=== PATIENT | female | born 1940 | race Caucasian/White ===

== ENCOUNTER 2025-02-26 02:20 | Inpatient (IN) | payer MEDICARE, SELFPAY ==
[2025-02-26] VITALS (16 sets, daily range): BP systolic 106–140; BP diastolic 71–96; BMI 29.8
--- NOTE | 2025-02-26 00:31 | ED.GENMED ---
History of Present Illness
General
Chief Complaint: Chest Pain
Source: patient and ambulance crew
Exam Limitations: none
Time Seen by Provider: 02/26/25 00:23
Nursing documentation reviewed up to this point in time: agreed with
History of Present Illness
History of Present Illness:
85-year-old female presents to the emergency department with substernal chest pain that began approximately an hour and a half prior to arrival. She called 911. Upon arrival paramedics discovered that she was having a STEMI. A STEMI alert was
called immediately. There was a prolonged transport time of greater than 15 minutes. Upon arrival to the emergency department, patient was stabilized and Dr. Arciniega, duct layer helper met patient at bedside. The entire [facility] [facility] [employer] [facility] team was
present as they were in another case. Patient was given Brilinta, aspirin, and transported up to the [facility].
Past History
Past History
ED Past Medical History: Arrthythmia, GERD, HTN, Hypercholesterolemia and NIDDM
ED Past Surgical History: Orthopedic and Urological
Social History
Tobacco: Former smoker
Alcohol: None
Drug: None
Personal:
Living: with family
Employment: Retired
Family History
Family History: Other (Noncontributory)
Phy Exam
General Physical Exam
General Presentation: moderate distress
General age: appears stated age
General Skin: warm and dry
General Habitus: elderly
General Mental: alert
General Hydration: appears well hydrated
ENT Exam
ENT Exam: EOMI, pharynx normal, neck supple and normocephalic
Eye Exam
Eye Exam: PERRL, cornea clear and conjunctiva normal
Cardiovascular Exam
Cardiovascular Exam: regular rate/rhythm, no edema, no murmur and normal peripheral pulses
Pulmonary Exam
Pulmonary Exam: lungs clear, no respiratory distress, no rales, no crackles, no rhonchi, no stridor, no wheezing and no cough
Gastrointestinal Exam
Gastrointestinal Exam: normal bowel sounds, non tender, soft, no organomegaly, no pulsatile mass and non distended
Neurological Exam
Neurological Exam: alert, oriented x3, no motor deficits and speech normal
Musculoskeletal Exam
Musculoskeletal Exam: full ROM and no edema
Skin Exam
Skin Exam: normal color, warm/dry, no rash and no petechia
Psychiatric Exam
Psychiatric Exam: normal mood/affect
Scores
Heart Score for Chest Pain Patients
STEMI patient?: Yes
Course
Orders/Labs/Results
Orders:
Orders
02/26/25 00:35
Electrocardiogram (*1) Urgent
Reason for Study: Other
Other Reason for Exam: Respiratory Distress
Cardiac Monitoring- Treatment ONCE
EKG- Treatment ONCE
IV Insert/Care/Rem.- Treatment PRN
O2 Therapy [RESP] Urgent
Titrate/Wean O2 to maintain O2 sat greater than (%): 93
Special Instructions: TO MAINTAIN CONTINUOUS O2 SATS >/= 93%
Pulse Ox/cont/shift [RESP] Urgent
Quantity: 1
Special Instructions: continuous pulse ox
02/26/25 00:37
Complete Blood Count/With Diff Urgent
Comprehensive Metabolic Panel Urgent
Lactic Acid Q4H
Comment: WITH 1ST SET OF BLOOD CULTURES,CANCEL 2ND LACTIC ACID IF FIRST <2
NT-proBNP Urgent
Prothrombin Time Urgent
Troponin I Urgent
02/26/25 01:22
Aspirin Chewable [Low Strength Aspirin] 324 mg .ROUTE .STK-MED ONE
Ticagrelor [Brilinta] 180 mg .ROUTE .STK-MED ONE
02/26/25 01:23
Heparin 5,000 units .ROUTE .STK-MED ONE
02/26/25 02:09
Admit Patient As Directed
Co-Sign Provider:
Level of Care: Inpatient admission
Assign to:: IVU
Physician / Group: AZALIA/Arciniega
Diagnosis: STEMI
Reason for Hospitalization: STEMI
Expected length of stay greater than two midnights?: Yes
ELOS- Estimated Length of Stay in days: 3
I certify the patient meets the requirements for IP care: Yes
Electrocardiogram (*1) Urgent
Reason for Study: Other
Other Reason for Exam: s/p intervention
Code Status As Directed
Resuscitation Status: Full Code
CARDIAC REHAB CONSULT Routine
Co-Sign Provider:
Cardiac Rehab & Exercise Evaluation Referral
Type of Cardiac Rehab Referral: Outpatient
Diagnosis: STEMI
Date of Diagnosis/Surgery: 02/26/25
Referring Provider: Kem Betts
[facility]ensive [facility]iac Rehab Exercise Prescription
The above named person is capable of participating in an intensive cardiac rehab exercise therapy program
under the guidance of the [facility] cardiac rehab staff, outpatient registered dieticians and
supervision of a physician.
ICR Program Objectives:
Provide supervised exercise, cooking classes, nutritional counseling and healthy mind-set education to
improve the function/symptom free work capacity to an optimal level as well as control risk factors to
prevent the progression of heart disease. During the supervised exercise therapy session some or all of
the following may be included in the cardiac rehab session: ECG telemetry, BP, heart rate, rate of
perceived exertion, symptoms/tolerance, cholesterol testing and education. Exercise modalities may
include: treadmill, upright or recumbent bike, spin bike, rowing machine, elliptical, recumbent
elliptical, arm-bike machine, recumbent stepper and free weights.
Intensity:
All CR staff will use ACSM guidelines: Most patients will exercise in the following range: Heart Rate
[place] range of 40% to 80% & Oxygen Uptake reserve range 40-80% (VO2R). Peak heart rate and VO2 are
derived from the cardiac rehab submaximal graded exercise test at RPE of 13/14 out of 20. Initial
intensity range: RPE 11 to 14/20 and may expand to 11 to 16/20.
Duration & Frequency:
If appropriate the patient will be progressed up to 40 minutes of exercise therapy. Patients will be
instructed to come three times a week in cardiac rehab and at a home/other gym to achieve optimal
physical activity/exercies i.e. 4000-10,000 steps per day.
Education:
The patient will receive one-on-one education during their orientation, initial exercise evaluation, ITP
reassessments and discharge session. Each exercise session will also include an education class (30-40
minutes).
Acetaminophen [Tylenol] 650 mg PO Q4HPRN PRN
Metoprolol [Lopressor] 25 mg PO NOW STA
Nitroglycerin Sublingual [Nitrostat (Sublingual)] 0.4 mg SL [id number] PRN
Activity As Directed
Activity Level: Out of Bed- Chair
Comment: bed/chair rest for 2 hours then out of bed ad edgardo
[employer] Procedure As Directed
Cardiac Cath Procedure: percutaneous coronary intervention
Intake/ Output As Directed
Frequency: Per unit guidelines
Notify MD As Directed
Notify physician if: immediately for chest pain or bleeding from access site(s)
Radial Artery Hemostasis Method As Directed
Instructions:: 3 mL out at 3 hour posts placement of band
3 mL out at 3 1/2 hours post placement of band
3 mL out at 4 hours post placement of band
Off at 4 1/2 hours post placement of band
If any oozing or hemotoma occurs:: re-inflate band and call provider
Site Checks As Directed
Check access site for bleeding/hematoma: Yes
Comment: on arrival, Q15min x4, Q30min x2, Q1 hr x2, Q2 hr x2, Q4 hr or per
protocol
Vascular Checks As Directed
Location: distal to access site - pulse check
Frequency: Other
Comment: on arrival, Q15min x4, Q30min x2, Q1 hr x2, Q2 hr x2, Q4 hr or per protocol
Vital Signs As Directed
Frequency: Other
Additional Instructions:: on arrival, Q15min x4, Q30min x2, Q1 hr x2, Q2 hr x2, then Q4 hr or per unit
protocol
PRN Pain Medication Management As Directed
May give lesser potent ordered pain med per pt: Yes
preference::
Protocol:: Medication orders for pain may be administered in a
manner that supports deferring to patient preference
when the pt is:
- Requesting an ordered lesser potent pain medication.
Least to most potent pain medications are defined
as: acetaminophen < NSAID < tramadol < opioids
(morphine, oxycodone, hydromorphone).
- Requesting a lesser dose of the same medication IF
ORDERED.
- Requesting a less intrusive route of administration
if both routes are prescribed by the provider (PO <
IV).
DX Deep Vein Thrombosis Video Routine
02/26/25 02:42
Glycohemoglobin (HgbA1c) Routine
Troponin I Q6H
02/26/25 03:00
Atorvastatin [Lipitor] 40 mg PO QPM
02/26/25 05:18
Basic Metabolic Panel IN AM
Cardiovascular Evaluation IN AM
Complete Blood Count/With Diff IN AM
Lactic Acid Q4H
Comment: WITH 1ST SET OF BLOOD CULTURES,CANCEL 2ND LACTIC ACID IF FIRST <2
02/26/25 06:00
Echo 2D MMode Color/Doppler IN AM
Reason for Study: STEMI
Electrocardiogram (*1) IN AM
Reason for Study: Other
Other Reason for Exam: s/p intervention
02/26/25 08:00
Aspirin Chewable [Low Strength Aspirin] 81 mg PO DAILY
Heparin 5,000 units SC Q12
Metoprolol Xl [Toprol Xl] 50 mg PO BID
Ticagrelor [Brilinta] 90 mg PO BID
02/26/25 08:15
Troponin I Q6H
02/26/25 14:15
Troponin I Q6H
02/27/25 06:00
Electrocardiogram (*1) IN AM
Reason for Study: Other
Other Reason for Exam: s/p intervention
02/28/25 06:00
Electrocardiogram (*1) IN AM
Reason for Study: Other
Other Reason for Exam: s/p intervention
Abnormal Lab Results
02/26/25
00:37
WBC 18.1 H 10^3/uL
(4.8-10.8)
MCH 31.5 H pg
(27.0-31.0)
MPV 11.3 H fL
(7.4-10.4)
Abs Immat Gran (auto) 0.1 H 10^3/uL
(0-0.05)
Absolute Neuts (auto) 12.7 H 10^3/uL
(1.4-6.5)
Absolute Lymphs (auto) 4.1 H 10^3/uL
(1.2-3.4)
Absolute Monos (auto) 0.9 H 10^3/uL
(0.1-0.6)
PT 17.5 H Sec
(11.4-14.6)
Carbon Dioxide 19 L mmol/L
(22-30)
BUN 31 H mg/dl
(7-17)
Glucose 365 H mg/dl
(70-99)
Lactic Acid 3.4 H mmol/L
(0.7-2.0)
AST 79 H U/L
(14-36)
Troponin I 2.260 H* ng/ml
02/26/25 00:37
02/26/25 00:37
Vital Signs
Initial and Last Documented VS:
Initial Vital Signs
Temp Pulse Resp BP Pulse Ox
98.0 F 146 22 126/95 97
02/26/25 00:15 02/26/25 00:15 02/26/25 00:15 02/26/25 00:15 02/26/25 00:15
Last Documented Vital Signs
Temp Pulse Resp BP Pulse Ox
97.5 F 122 16 113/95 99
02/26/25 02:33 02/26/25 03:03 02/26/25 02:33 02/26/25 03:03 02/26/25 02:33
*EKG
Interpreted by ED Provider?: Yes
EKG Intrepretation Date: 02/26/25
Rate: normal
Rhythm: sinus
[place]: normal axis
Interval: normal interval
QRS Pattern: normal QRS
Ischemia: ST elevation
*Critical Care Note
Total Time (30-74mins, 75-104mins- exclusive of procedures): 35 (Critical care statement: A total of 35 minutes of critical care time was provided for this patient. This time is separate from time utilized to perform the aforementioned documented
procedures. Aggregate critical care time includes only time during which I was engaged in work directl)
Update Note
Update Note:
12:30 AM�granddauter was contacted
ED Attending Note
-
Portions of this chart may have been created with voice recognition software.� Occasional wrong word or��sound alike� substitutions may have occurred due to the inherent limitations of voice recognition software.
Discharge Plan
Departure
Patient Disposition: PAIRER SUBSTANDARD
Date of Disposition: 02/26/25
Time of Disposition: 00:33
Admit to: research laboratory manager
Presentation/result/management discussed w/ accepting /: Suze
Condition: Good
Discharge Problem:
ST elevation (STEMI) myocardial infarction
Interventions
Interventions:
*ED COVID-19 Vaccine History Last Done: 02/26/25 00:30
*Nursing Disposition Last Done: 02/26/25 00:30
ED- Cardiac Assessment Last Done: 02/26/25 00:20
Discharge Date and Time
Discharge Date/Time: 02/26/25 00:30
[2025-02-26 00:47] LABS: % Basophils 0.6 % (0-2); % Eosinophils 0.9 % (0-6); % Immature Granulocytes 0.4 % (0-0.5); % Lymphocytes 22.8 % (20.5-51.1); % Monocytes 4.9 % (1.7-9.3); % Neutrophils 70.4 % (42.2-75.2); Absolute Basophils 0.1 10^3/uL (0-0.2); Absolute Eosinophils 0.2 10^3/uL (0-0.7); Absolute Immature Granulocytes 0.1 10^3/uL (0-0.05); Absolute Lymphocytes 4.1 10^3/uL (1.2-3.4); Absolute Monocytes 0.9 10^3/uL (0.1-0.6); Absolute Neutrophils 12.7 10^3/uL (1.4-6.5); Hematocrit 38.4 % (37.0-47.0); Hemoglobin 13.7 g/dL (12.0-16.0); Mean Corp Hgb Conc. 35.7 g/dL (33.0-37.0); Mean Corpuscular Hgb 31.5 pg (27.0-31.0); Mean Corpuscular Volume 88.3 fL (81.0-99.0); Mean Platelet Volume 11.3 fL (7.4-10.4); Nucleated Red Blood Cells % 0 %; Platelet Count 241 10^3/uL (130-400); Red Blood Cell Count 4.35 10^6/uL (4.20-5.40); Red Cell Dist. Width 12.4 % (11.5-14.5); White Blood Cell Count 18.1 10^3/uL (4.8-10.8)
[2025-02-26 00:59] LABS: ALT (SGPT) 28 U/L (0-35); AST (SGOT) 79 U/L (14-36); Albumin 4.6 g/dl (3.5-5.0); Alkaline Phosphatase 74 U/L (38-126); Blood Urea Nitrogen 31 mg/dl (7-17); Calcium 10.2 mg/dl (8.4-10.2); Carbon Dioxide 19 mmol/L (22-30); Chloride 100 mmol/L (98-107); Glucose 365 mg/dl (70-99); Potassium 4.3 mmol/L (3.5-5.1); Sodium 139 mmol/L (135-145); Total Bilirubin 1.1 mg/dl (0.2-1.3); eGFR > 60.00
[2025-02-26 01:02] LABS: INR 1.41; PT 17.5 Sec (11.4-14.6)
[2025-02-26 01:07] LABS: Lactic Acid 3.4 mmol/L (0.7-2.0)
[2025-02-26 01:17] LABS: NT-proBNP 235 pg/ml
--- NOTE | 2025-02-26 02:14 | HPS.HSE ---
Family Physician
-
Family Physician: NOT KNOW UNKNOWN - PT DOES
Chief Complaint
-
Chest pain
History of Present Illness
Patient is a 85-year-old female with past medical history of hypertension, hyperlipidemia, type 2 diabetes mellitus, [id number], former smoker coronary artery disease with a prior silent AK per patient, persistent atrial fibrillation on
chronic Eliquis and beta-danny, prior TIA, some ambulatory dysfunction using a cane with prior falls however none recently who presents from home brought in by EMS after having sudden onset substernal chest discomfort around 930 this evening while
she was at rest watching TV associated with shortness of breath and generalized fatigue. She went to bed on without any difficulties and had no other complaints throughout the day yesterday. She ate her dinner without any abnormalities.
She was called in as a prehospital ST elevation AK with EKG showing significant anterolateral ST elevations concerning for a anterolateral ST elevation AK for which heart catheterization lab was activated. In the emergency room she continued to
have 6-8 out of 10 chest discomfort and she received 325 mg of aspirin, 180 mg of Brilinta, 4000 units of unfractionated heparin. Last dose of Eliquis was on evening of February 25, 2025. She denies any allergies to contrast dye. After detailed
informed consent was obtained she was emergently brought up to the heart catheterization lab. She definitely saw her hitting coach earlier this week on Thursday with no medication changes and she was otherwise doing well so no other changes were made.
No recent stress test per patient.
Medical History
Past Medical History
Past Medical History: Reports CAD, CVA, HTN, Hypercholesterolemia and IDDM
Past Surgical History: Reports None
Social History
Tobacco: Former Smoker
Alcohol: Occasional
Drug: None
Personal: Single
Living: Alone
Employment: Retired
Family History
Family History: Not pertinent
Allergies / Home Medications
Allergies reflects when Allergies were last updated in [employer].
Home Medications with original date entered in [employer]
Allergy/Medication List:
Multiple allergies reviewed and updated in the system in the emergency room specifically she denied any allergies to contrast dye
Medications include
Eliquis 5 mg twice daily
Glipizide 5 mg daily
Losartan 25 mg daily
Metformin 1000 mg twice daily
Lopressor 50 mg twice daily
Simvastatin 40 mg once daily
Calcium supplementation
Chlorthalidone 25 mg daily on Thursday, Thursday and Fridays
Multivitamin
Review of Systems
-
A 12 point ROS was completed and negative except as noted: Yes
Physical Exam
Vital Signs
Vital Signs
Temp Pulse Resp BP Pulse Ox
98.0 F 146 33 126/95 97
02/26/25 00:15 02/26/25 00:15 02/26/25 00:30 02/26/25 00:19 02/26/25 00:19
Physical Exam
General: Well Developed, Well Nourished, Appears in Distress, Pain, Appears Chronically Ill and Obese
HEENT: Moist mucous membranes
Respiratory: Wheezes and Non Labored Respirations
Cardiac: S1/S2, Irregular Rhythm, Tachycardia and JVD; No Peripheral Edema
GI: Soft, Non Tender, Non Distended and Normal Bowel Sounds
Neuro: Awake and AO x 3
Psych: Calm
Laboratory Results
-
Laboratory Results
PT 17.5 Sec (11.4-14.6) H 02/26/25 00:37
INR 1.41 02/26/25 00:37
Lactic Acid 3.4 mmol/L (0.7-2.0) H 02/26/25 00:37
Total Bilirubin 1.1 mg/dl (0.2-1.3) 02/26/25 00:37
AST 79 U/L (14-36) H 02/26/25 00:37
ALT 28 U/L (0-35) 02/26/25 00:37
Alkaline Phosphatase 74 U/L (38-126) 02/26/25 00:37
Troponin I 2.260 ng/ml H* 02/26/25 00:37
Data Reviewed
-
Diagnostic Radiology: Image Personally Visualized and interpreted
Medical Tests (Nuc Med, Echo, EKG etc): Image Personally Visualized and interpreted
Lab Data: Labs Reviewed by me
Old Records: Reviewed
Impression/Plan
-
IMPRESSION: Patient is a 85-year-old female with past medical history of hypertension, hyperlipidemia, type 2 diabetes mellitus, [id number], former smoker coronary artery disease with a prior silent AK per patient, persistent atrial
fibrillation on chronic Eliquis and beta-danny, prior TIA, some ambulatory dysfunction using a cane with prior falls however none recently who presents from home brought in by EMS after having sudden onset substernal chest discomfort around 930
this evening while she was at rest watching TV associated with shortness of breath and generalized fatigue. She went to bed on without any difficulties and had no other complaints throughout the day yesterday. She ate her dinner without
any abnormalities. She was called in as a prehospital ST elevation AK with EKG showing significant anterolateral ST elevations concerning for a anterolateral ST elevation AK for which heart catheterization lab was activated. In the emergency room
she continued to have 6-8 out of 10 chest discomfort and she received 325 mg of aspirin, 180 mg of Brilinta, 4000 units of unfractionated heparin. Last dose of Eliquis was on evening of February 25, 2025. She denies any allergies to contrast dye.
After detailed informed consent was obtained she was emergently brought up to the heart catheterization lab. She definitely saw her hitting coach earlier this week on Thursday with no medication changes and she was otherwise doing well so no other
changes were made. No recent stress test per patient.
Outpatient Supervisor Pipeline Maintenance: Dr. Kem Zavala
Impression:
Anterolateral ST elevation AK with 100% thrombotic occlusion of the mid LAD with KAVITHA 0 flow status post one 3.0 x 18 mm Medtronic Dangelo drug-eluting stent, postdilated using IVUS guidance with a 3.25 x 15 millimeter NC balloon at 18 juanita with an
excellent angiographic result complicated by no reflow into mid to distal LAD requiring multiple rounds of various vasodilators
Hypertension
Hyperlipidemia
Type 2 diabetes mellitus, [id number]
Coronary artery disease, questionable prior AK per patient
Persistent atrial fibrillation with prior TIA
Chronic anticoagulation with Eliquis
Ambulatory dysfunction, using a cane
Prior falls
Former smoker
Lives alone independently
Recommendations
1. Uninterrupted dual antiplatelet therapy with daily baby aspirin and Brilinta 90 mg twice daily for now, along with high intensity statin and beta-danny as tolerated.
2. Full echocardiogram to assess biventricular function and rule out any significant valvular abnormalities.
3. Likely staged PCI to RCA, as early as Thursday depending on hemodynamic stability, recovery and renal function.
4. Aggressive management of cardiovascular risk factors.
5. Medicine consult to help manage chronic medical issues including diabetes.
6. Post all interventions this admission, when she is ready to have her Eliquis resumed with plan to switch to Plavix given she is older patient to minimize risk for bleeding by loading 600 mg of Plavix with plan to continue 1 week of triple
therapy with daily baby aspirin, Plavix 75 mg daily along with Eliquis then to discontinue aspirin and continue Plavix and Eliquis.
7. Eventual referral for outpatient cardiac rehab
Chelle Arciniega MD, FACC, [facility]
--- NOTE | 2025-02-26 02:17 | CON.HOSP ---
Family Physician
-
Family Physician: NOT KNOW UNKNOWN - PT DOES
Chief Complaint
-
STEMI
History of Present Illness
This is an 85-year-old female with past medical history significant for type 2 diabetes, hypertension, proximal atrial fibrillation on anticoagulation, GERD, mitral valve prolapse and history of hemorrhoids who presents to the emergency department
with substernal chest pain beginning approximately an hour and a half prior to arrival.
EMS arrived to find patient having a ST elevation NC cardiac monitoring. Unfortunately there was prolonged transportation greater than 50 minutes.
On arrival in the emergency department patient was stabilized and top frame maker was brought to the bedside. Store Sales Manager was activated and patient was transferred to the Store Sales Manager. She was given Brilinta aspirin en route to the Store Sales Manager.
I met the patient post cath, please see description of procedure by interventional cardiology note.
Initial vitals in the emergency department showed a blood pressure of 130/90 with a pulse of 146. She had normal temperature. ECG showed sinus tachycardia with ST elevations in the anterior leads. CBC shows a white count of 18 but otherwise
unremarkable stop electrolytes BUN/creatinine were all stable. Glucose was elevated at 380. Patient had elevated lactic acid of 3.4.
Medical History
Past Medical History
Past Medical History: Reports Arrhythmia (Proximal atrial fibrillation), GERD, HTN and NIDDM
Additional Past Medical History:
Irritable bowel disease
Past Surgical History: Reports Gynocological (Bladder sling, exploratory laparoscopy/unilateral salpingectomy) and Orthopedic (Right knee replacement, left knee replacement, right shoulder replacement.)
Social History
Tobacco: Non-smoker
Alcohol: Occasional
Drug: None
Living: With Family
Family History
Family History: Reviewed & Not Pertinent
Allergies / Home Medications
Allergies reflects when Allergies were last updated in [employer].
Home Medications with original date entered in [employer]
Allergy/Medication List:
Allergies
Allergy/AdvReac Type Severity Reaction Status Date / Time
amoxicillin Allergy NAUSEA Verified 02/27/22 11:02
FROM
AUGMENTIN
amoxicillin trihydrate Allergy Nausea / Verified 02/27/22 11:02
[From Augmentin] Vomiting
bupropion HCl Allergy 'made me Verified 02/27/22 11:02
[From Wellbutrin] ANGRY'
cefuroxime axetil Allergy Unknown Verified 02/27/22 11:02
[From Ceftin]
ciprofloxacin HCl Allergy Unknown Verified 02/27/22 11:02
[From Cipro]
codeine Allergy UPSET Verified 02/27/22 11:02
STOMACH
levofloxacin [From Levaquin] Allergy Unknown Verified 02/27/22 11:02
NSAIDS (Non-Steroidal Allergy avoids due Verified 02/27/22 11:02
Anti-Inflamma to ulcers
potassium clavulanate Allergy Nausea / Verified 02/27/22 11:02
[From Augmentin] Vomiting
molds and trees Allergy Head Uncoded 02/27/22 11:02
congestion
and
sneezing
poison pb Allergy Rash, Uncoded 02/27/22 11:02
itching
wheat Allergy Patient Uncoded 02/27/22 11:02
Denies
Home Medications
metFORMIN HCl ER 500 MG 2 tablets Orally Twice a day for 90 days Active
Biotin Active
Escitalopram Oxalate 10 MG 1 tablet Orally Once a day for 90 days Active
Estrace 0.1 MG/GM 1 gram Vaginal Once a day for 14 days then twice weekly for 30 day(s) stopped March, Unknown
Simvastatin 40 MG 1 tablet in the evening Orally Once a day for 90 days Active
Januvia 100 MG 1 tablet Orally Once a day for 90 days stopped Unknown
glipiZIDE ER 5 MG 1 tablet with food Orally Once a day for 90 days Active
Losartan Potassium 25 MG TAKE 1 TABLET BY MOUTH ONCE DAILY for 90 Active
Eliquis 5 MG 1 tablet Orally Twice a day for 90 days Active
Accu-Chek Guide - as directed In Vitro Once a Day for 90 days icd10 e11.69 Nov, Unknown
Metoprolol Tartrate 50 MG 1 tablet with food Orally Twice a day for 7 days Early fill needed, pt will run out of med before mail order shipment arrives Active
Chlorthalidone 25 MG 1 tablet in the morning with food Orally Thursday, Thursday, and Thursday Only for 90 days Active
Review of Systems
-
History Source: Patient
Constitutional: Reports No Symptoms
EENT: Reports No Symptoms
Respiratory: Reports No Symptoms
Cardiac: Reports Chest Pain
Abdomen/GI: Reports No Symptoms
: Reports No Symptoms
Musculoskeletal: Reports No Symptoms
Skin: Reports No Symptoms
Neurological: Reports No Symptoms
Endocrine: Reports No Symptoms
Hematologic/Lymphatic: Reports No Symptoms
Psych: Reports No Symptoms
Physical Exam
Vital Signs
Vital Signs
Temp Pulse Resp BP Pulse Ox
98.0 F 146 33 126/95 97
02/26/25 00:15 02/26/25 00:15 02/26/25 00:30 02/26/25 00:19 02/26/25 00:19
Physical Exam
General: Well Developed, Well Nourished, No Apparent Distress and Comfortable
HEENT: Normocephalic, Anicteric, Moist Mucous Membranes and Good Dentition
Respiratory: Clear
Cardiac: S1/S2, Irregular Rhythm and Tachycardia
Breast: Deferred by me
GI: Soft, Non Tender, Non Distended and Normal Bowel Sounds
Rectal: Deferred by Provider
Musculoskeletal: No Edema
Skin: Warm and Dry
Neuro: AO x 3 and Nonfocal/Grossly Intact
Hematologic/Lymphatic: No Lymphadenopathy
Psych: Calm
Laboratory Results
-
PT 17.5 Sec (11.4-14.6) H 02/26/25 00:37
INR 1.41 02/26/25 00:37
Lactic Acid 3.4 mmol/L (0.7-2.0) H 02/26/25 00:37
Total Bilirubin 1.1 mg/dl (0.2-1.3) 02/26/25 00:37
AST 79 U/L (14-36) H 02/26/25 00:37
ALT 28 U/L (0-35) 02/26/25 00:37
Alkaline Phosphatase 74 U/L (38-126) 02/26/25 00:37
Troponin I 2.260 ng/ml H* 02/26/25 00:37
Data Reviewed
-
Medical Tests (Nuc Med, Echo, EKG etc): Image personally visualized and interpreted
Lab Data: Labs Reviewed and Discussed with Physician
Old Records: Reviewed
Impression / Plan
-
IMPRESSION:
85-year-old with history of hypertension, diabetes and hyperlipidemia presenting to the emergency department with acute chest pain found to have STEMI involving the anterior leads status post cardiac catheter with PCI and stent placement.
Hospitalist has been consulted to manage patient's additional medical comorbidities. Her labs mostly unremarkable with preserved electrolytes BUN/creatinine. She does have a leukocytosis with normal platelet count and normal hemoglobin. Initial
troponin was 2.2.
PLAN:
1. STEMI - Intervention as described by cardiology
- DAPT + DOAC per cards, high dose statin, dc aspirin after 1wks to 1 month if on apixaban
- choice of antiplatelet per cardiology
- Echo
- AC continued
- continue beta blockade metoprolol 50
- continue losartan with hold parameters
- additional GDMT per echo, candidate for SGLT II
- a1c, lipid panel in am
2. AFIB
- rate controlled, continue beta blockade, given 25mg post op, cardiology continuing with metop succ 50 bid
- will need to continue AC
3. DM II
- continue metformin 1000 bid
- glipizide 5
- sitagliptin 100
- sliding scale insulin
- a1c as above
4. HTN
- continue losartan 25 with hold parameters
- restart chlorthalidone M/W/F
DVT PPX - on AC
Code status - full code
--- NOTE | 2025-02-26 02:24 | ITS.CL.CATH ---
Head Stock Operator - Catheterization
Cardiac Catheterization
Procedure Report:
LEFT HEART CATHETERIZATION AND CORONARY INTERVENTION
Date of Procedure: February 26, 2025
Referring: [place] emergency department
PROCEDURES:
1. Left heart catheterization, coronary angiogram.
2. Moderate sedation.
3. Successful percutaneous coronary artery intervention of an acute hazy, heavily thrombotic mid LAD 100% occlusion with KAVITHA 0 flow with one 3.0 x 18 mm Medtronic Dangelo drug-eluting stent, postdilated using IVUS guidance with a 3.25 x 15 mm NC
balloon at 18 juanita with an excellent angiographic result, complicated by mid to distal LAD no reflow requiring multiple rounds of various vasodilators.
4. Intravascular ultrasound (IVUS)
INDICATION:Patient is a 85-year-old female with past medical history of hypertension, hyperlipidemia, type 2 diabetes mellitus, [id number], former smoker coronary artery disease with a prior silent TN per patient, persistent atrial
fibrillation on chronic Eliquis and beta-danny, prior TIA, some ambulatory dysfunction using a cane with prior falls however none recently who presents from home brought in by EMS after having sudden onset substernal chest discomfort around 930
this evening while she was at rest watching TV associated with shortness of breath and generalized fatigue. She went to bed on without any difficulties and had no other complaints throughout the day yesterday. She ate her dinner without
any abnormalities. She was called in as a prehospital ST elevation TN with EKG showing significant anterolateral ST elevations concerning for a anterolateral ST elevation TN for which heart catheterization lab was activated. In the emergency room
she continued to have 6-8 out of 10 chest discomfort and she received 325 mg of aspirin, 180 mg of Brilinta, 4000 units of unfractionated heparin. Last dose of Eliquis was on evening of February 25, 2025. She denies any allergies to contrast dye.
After detailed informed consent was obtained she was emergently brought up to the heart catheterization lab.
ACCESS: Right radial artery, 6 Trin[place] sheath, and ultrasound-guided
Ultrasound was utilized for vascular access. The radial artery was visualized under ultrasound, and the vessel was patent and pulsatile. An image was stored permanently in the patient's medical record. Under direct ultrasound guidance, a 6 [place]
sheath was inserted into the artery using a micropuncture kit through a modified Seldinger technique.
HEMODYNAMICS : (mmHg)
AO (s/d) : 109/82
LVEDP : 30
CORONARY FINDINGS
DOMINANCE: Right
LEFT MAIN: The left main artery is a large-caliber vessel which gives rise to the left anterior descending artery and the left circumflex artery. There is minimal luminal irregularities.
LEFT ANTERIOR DESCENDING: The left anterior descending artery is a large-caliber vessel, which gives rise to 1 major diagonal branch and multiple other small caliber diagonal branches as it courses to the anterior interventricular groove and wraps
around the apex. Proximal LAD has 40% stenosis. Mid LAD, distal to the D1 takeoff has a acute, thrombotic, hazy 100% occlusion with KAVITHA 0 -1 flow, which was the culprit of presenting ST elevation TN and was intervened on as noted below.
CIRCUMFLEX: The left circumflex artery is a medium caliber vessel which gives rise to 1 major obtuse marginal branch and 2 small to medium caliber left posterolateral branches OM1 has mild diffuse atherosclerotic plaque. Proximal to mid left
circumflex also has mild diffuse atherosclerotic plaque. Distal left circumflex going into the bifurcation of the left posterolateral branch has 60 to 70% stenosis.
RIGHT CORONARY ARTERY: The right coronary artery is a medium to large caliber vessel which gives rise to the right posterior descending artery and the right posterolateral system. There is a irregular 70 to 80% mid RCA stenosis. There is also a 75
to 80% distal RCA stenosis just proximal to the bifurcation of the RPDA and the RPL.
CORONARY INTERVENTION: The left coronary artery was selectively engaged using a 6 [place] EBU 3.5 guide catheter. Additional heparin was given to maintain a therapeutic ACT throughout the case. We used over 90 cm 0.014' run-through coronary wire
and successfully advanced this up across the mid LAD occlusion into the distal vessel. We predilated the lesion using a 2.5 x 12 mm semi-compliant balloon at 14 juanita with good expansion. Multiple inflations were performed. We subsequently stented
the lesion using a 3.0 x 18 mm Medtronic Dangelo drug-eluting stent. We then performed IVUS using Operatix eye catheter and based on IVUS imaging we postdilated the stent using a 3.25 x 15 mm NC balloon at 18 juanita with an excellent angiographic
and IVUS based result. Significant no reflow was noted in the mid to distal LAD in the setting of an elevated LVEDP. She had already received 40 mg of IV Lasix at this point. We brought in a twin pass microcatheter over the run-through wire and
through the microcatheter injected multiple rounds of a combination of vasodilators including intracoronary nitroglycerin, adenosine, epinephrine as well as Cardene with eventual improvement in her symptoms and flow into the distal LAD. Patient was
chest pain-free at the end of the case. She tolerated the procedure well with no acute complications.
SEDATION: 67 minutes of procedural sedation was utilized. An independent medical laboratory assistant was present to assist with and help manage the patient's level of consciousness and physiologic status.
RADIATION SUMMARY: Fluoro Time (min): 8 point, Dose (mGy): 695.60, DAP (Gy.cm2) : 40.3
Closure Device: Vascular band over RRA, 10 cc of air
CONCLUSIONS
1. Successful percutaneous coronary artery intervention of an acute hazy, heavily thrombotic mid LAD 100% occlusion with KAVITHA 0 flow with one 3.0 x 18 mm Medtronic [place] drug-eluting stent, postdilated using IVUS guidance with a 3.25 x 15 mm NC
balloon at 18 juanita with an excellent angiographic result, complicated by mid to distal LAD no reflow requiring multiple rounds of various vasodilators.
2. Significantly elevated LVEDP at 30 mmHg.
3. Distal left circumflex going into the bifurcation of the left posterolateral branch has 60 to 70% stenosis.
4. There is a irregular 70 to 80% mid RCA stenosis. There is also a 75 to 80% distal RCA stenosis just proximal to the bifurcation of the RPDA and the RPL.
RECOMMENDATIONS
1. Uninterrupted dual antiplatelet therapy with daily baby aspirin and Brilinta 90 mg twice daily for now, along with high intensity statin and beta-danny as tolerated.
2. Full echocardiogram to assess biventricular function and rule out any significant valvular abnormalities.
3. Likely staged PCI to RCA, as early as Thursday depending on hemodynamic stability, recovery and renal function.
4. Aggressive management of cardiovascular risk factors.
5. Medicine consult to help manage chronic medical issues including diabetes.
6. Post all interventions this admission, when she is ready to have her Eliquis resumed with plan to switch to Plavix given she is older patient to minimize risk for bleeding by loading 600 mg of Plavix with plan to continue 1 week of triple
therapy with daily baby aspirin, Plavix 75 mg daily along with Eliquis then to discontinue aspirin and continue Plavix and Eliquis.
7. Eventual referral for outpatient cardiac rehab
Chelle Arciniega MD, [facility], [facility]
Copy to: Kem Zavala MD
[2025-02-26 03:02] LABS: Glucose - Point of Care 427 mg/dl (70-99)
[2025-02-26] MEDS: LOPRESSOR 25 MG PO (03:03)
[2025-02-26] MEDS: LIPITOR 40 MG PO ×2 (03:04→17:14)
--- NOTE | 2025-02-26 03:24 | PTCARENOTE ---
Received patient from laboratory mechanical technician. ST on the monitor, HR in the 120s. VSS on 3L. R radial band in place, R radial pulse normal, pulse ox 97% on R finger. Accucheck 427, Venous blood glucose sent. No complaints from pt at this time, call meléndez within
reach.
[2025-02-26 03:35] LABS: Glucose 405 mg/dl (70-99)
[2025-02-26] MEDS: NOVOLOG FLEXPEN 6 UNITS SC ×2 (05:01→10:29)
[2025-02-26 05:50] LABS: White Blood Cell Count 18.8 10^3/uL (4.8-10.8)
[2025-02-26 05:51] LABS: % Basophils 0.2 % (0-2); % Eosinophils 0.1 % (0-6); % Immature Granulocytes 0.4 % (0-0.5); % Lymphocytes 11.2 % (20.5-51.1); % Monocytes 4.8 % (1.7-9.3); % Neutrophils 83.3 % (42.2-75.2); Absolute Immature Granulocytes 0.1 10^3/uL (0-0.05); Absolute Lymphocytes 2.1 10^3/uL (1.2-3.4); Absolute Monocytes 0.9 10^3/uL (0.1-0.6); Absolute Neutrophils 15.7 10^3/uL (1.4-6.5); Hematocrit 39.3 % (37.0-47.0); Hemoglobin 13.6 g/dL (12.0-16.0); Mean Corp Hgb Conc. 34.6 g/dL (33.0-37.0); Mean Corpuscular Hgb 31.1 pg (27.0-31.0); Mean Corpuscular Volume 89.7 fL (81.0-99.0); Nucleated Red Blood Cells % 0 %; Platelet Count 231 10^3/uL (130-400); Red Blood Cell Count 4.38 10^6/uL (4.20-5.40); Red Cell Dist. Width 12.6 % (11.5-14.5)
[2025-02-26 06:14] LABS: Lactic Acid 1.7 mmol/L (0.7-2.0)
[2025-02-26 07:05] LABS: Glucose - Point of Care 453 mg/dl (70-99)
--- NOTE | 2025-02-26 07:16 | PTCARENOTE ---
Venous blood glucose 405. CHUCHO Saleh notified. 6 units of insulin administered as per provider order, see DEC. 0700 accucheck 453, venous blood glucose sent to lab.
[2025-02-26] MEDS: BRILINTA 90 MG PO ×2 (07:48→19:33)
[2025-02-26] MEDS: COZAAR 25 MG PO (07:48)
[2025-02-26] MEDS: JANUVIA 100 MG PO (07:48)
[2025-02-26] MEDS: LEXAPRO 10 MG PO (07:48)
[2025-02-26] MEDS: TOPROL XL 50 MG PO ×2 (07:48→19:33)
[2025-02-26] MEDS: LOW STRENGTH ASPIRIN 81 MG PO (07:49)
[2025-02-26 07:53] LABS: Blood Urea Nitrogen 30 mg/dl (7-17); Carbon Dioxide 21 mmol/L (22-30); Chloride 98 mmol/L (98-107); Estimated Creatinine Clearance 67 ml/min; Glucose 420 mg/dl (70-99); HDL Cholesterol 56 mg/dl; LDL Cholesterol, Calculated 44 mg/dl; Potassium 4.4 mmol/L (3.5-5.1); Sodium 138 mmol/L (135-145); Total Cholesterol 114 mg/dl (50-199); Triglyceride 73 mg/dl (10-149); Very Low Density Lipoprotein 14 mg/dl (0-30); eGFR > 60.00
[2025-02-26 07:54] LABS: Glucose 414 mg/dl (70-99)
--- NOTE | 2025-02-26 08:04 | W.PN.UPDATE ---
Update Note
Progress Note Update
I saw and evaluated the patient. I reviewed the resident�s note and agree with findings and plan as documented in the resident�s note.
Pt complains pt chest pressure. Denies SOB.
Gen: NAD, AAOx3.
Eyes: EOMI, PERRLA, no scleral icterus.
Neck: supple.
CV: RRR, +S1/S2, no m/r/g.
Resp: CTAB, no rales, wheezes, or rhonchi.
Abd: +BS, soft, NT, ND
Skin: No rashes.
Neuro: CN 2-12 intact, non-focal.
Psych: Normal mood and affect.
Cardiac cath:
1. Successful percutaneous coronary artery intervention of an acute hazy, heavily thrombotic mid LAD 100% occlusion with KAVITHA 0 flow with one 3.0 x 18 mm Medtronic Dangelo drug-eluting stent, postdilated using IVUS guidance with a 3.25 x 15 mm NC
balloon at 18 juanita with an excellent angiographic result, complicated by mid to distal LAD no reflow requiring multiple rounds of various vasodilators.
2. Significantly elevated LVEDP at 30 mmHg.
Acute STEMI:
-Trop 48
-underlying CAD with prior VA (silent)
-s/p cath with mid LAD 100% occlusion
-cont ASA/Brilinta/BB/statin
-check echo
-for cath again tomorrow as per discussion with Dr. Arciniega
DM2:
-stop Metformin contrast during contrast
-stop Januvia/Glipizide
-start Lantus 10U AM
-start premeal Aspart 3U
-check a1c
-change SSI to high resistance
Other problems:
Essential HTN: cont BB/chlorthalidone/ARB
HLD: cont statin
Former smoker
Persistent atrial fibrillation: cont BB. Holding Eliquis for now as pt is going to cath again tomorrow.
Prior TIA: cont statin
FULL/Heparin
[2025-02-26] MEDS: GLUCOTROL XL (EXTENDED RELEASE) 5 MG PO (08:05)
[2025-02-26] MEDS: NOVOLOG FLEXPEN-LOW RESISTANCE 6 UNITS SC (08:11)
[2025-02-26 08:28] LABS: Glycohemoglobin (HgbA1c) 8.6 % (4.0-5.6)
--- NOTE | 2025-02-26 08:58 | W.PN.UPDATE ---
Update Note
Progress Note Update
Interventional cardiology update note
Overnight events: Patient overall is doing well. She reports some mild left-sided pleuritic chest discomfort about 1-2 out of 10. No nausea, shortness of breath or any other symptoms. She is otherwise out of bed in a chair.
On exam patient is well-appearing, no acute distress, awake, alert and oriented x 3, regular rate, normal S1 and S2, bibasilar Rales, abdomen is soft, nontender, nondistended with active bowel sounds, warm extremities, elevated JVP, radial band is
still on and being weaned off.
Impression:
Anterolateral ST elevation RI with 100% thrombotic occlusion of the mid LAD with KAVITHA 0 flow status post one 3.0 x 18 mm Medtronic [place] drug-eluting stent, postdilated using IVUS guidance with a 3.25 x 15 millimeter NC balloon at 18 juanita with an
excellent angiographic result complicated by no reflow into mid to distal LAD requiring multiple rounds of various vasodilators
Hypertension
Hyperlipidemia
Type 2 diabetes mellitus, [id number]
Coronary artery disease, questionable prior RI per patient
Persistent atrial fibrillation with prior TIA
Chronic anticoagulation with Eliquis
Ambulatory dysfunction, using a cane
Prior falls
Former smoker
Lives alone independently
Recommendations
1. Uninterrupted dual antiplatelet therapy with daily baby aspirin and Brilinta 90 mg twice daily for now, along with high intensity statin and beta-danny as tolerated.
2. We will obtain echocardiogram urgently this morning given some residual chest discomfort, although it is pleuritic in nature, question RI related pericarditis versus due to acute decompensated heart failure in the setting of significantly
elevated LVEDP.
3. Plan for ongoing IV diuresis with close monitoring of renal function and electrolytes.
4. Hospitalist team to help manage her blood sugars given they have been significantly elevated.
5. Tentative plan to bring back to the heart catheterization lab for staged RCA PCI tomorrow as long as renal function and clinical status remained stable.
6. Post all interventions this admission, when she is ready to have her Eliquis resumed with plan to switch to Plavix given she is older patient to minimize risk for bleeding by loading 600 mg of Plavix with plan to continue 1 week of triple
therapy with daily baby aspirin, Plavix 75 mg daily along with Eliquis then to discontinue aspirin and continue Plavix and Eliquis.
7. Eventual referral for outpatient cardiac rehab
Discussed all of the above with hospitalist as well as nursing at bedside.
Chelle Arciniega MD, FACC, [facility]
[2025-02-26 09:18] LABS: Glucose - Point of Care 408 mg/dl (70-99)
[2025-02-26] MEDS: HEPARIN SC (09:26)
[2025-02-26] MEDS: LANTUS 0.1 UNITS SC (09:40)
[2025-02-26] MEDS: LASIX 40 MG IV (09:41)
[2025-02-26 09:52] LABS: Glucose 421 mg/dl (70-99)
[2025-02-26] MEDS: NOVOLOG FLEXPEN 3 UNITS SC ×3 (09:55→18:12)
--- NOTE | 2025-02-26 11:18 | CARDSERVLU ---
Echocardiogram with Lumason completed after protocol screening completed. Allergies verified.
Patent IV site: _L hand____
IV site flushed with 0.9% NaCl pre and post administration.
Diluted bolus method utilized to enhance visualization of ventricular hernandez.
Total volume given: _5___ mL
Patient tolerated all procedures well without complications.
[2025-02-26 11:45] LABS: Glucose - Point of Care 416 mg/dl (70-99)
[2025-02-26 12:31] LABS: Glucose 384 mg/dl (70-99)
[2025-02-26] MEDS: NOVOLOG FLEXPEN-HIGH RESISTANCE 12 UNITS SC (12:34)
[2025-02-26 14:17] LABS: Glucose - Point of Care 331 mg/dl (70-99)
[2025-02-26 17:45] LABS: Glucose - Point of Care 303 mg/dl (70-99)
--- NOTE | 2025-02-26 18:00 | PTCARENOTE ---
Pt received this am with c/o of off and on 12/12 chest discomfort. Ecg done and 02 applied at 2L with relief obtained. Pt instructed to let us know if her pain returned. Pt oob to the chair and the bathroom, gait steady. Blood sugars high requiring
venous specimens. Dr. Jose aware of BS issues.
[2025-02-26] MEDS: NOVOLOG FLEXPEN-HIGH RESISTANCE 10 UNITS SC (18:13)
[2025-02-26] MEDS: HEPARIN 5000 UNITS SC (19:33)
--- NOTE | 2025-02-26 20:49 | PTCARENOTE ---
Received patient at change of shift. SR on the monitor, HR in the 80s. R radial dressing CDI, ecchymotic. NPO at midnight. No complaints from pt at this time, call meléndez within reach.
[2025-02-26 22:30] LABS: Glucose - Point of Care 227 mg/dl (70-99)
[2025-02-27] VITALS (58 sets, daily range): BP systolic 74–128; BP diastolic 39–79
[2025-02-27 03:21] LABS: Glucose - Point of Care 239 mg/dl (70-99)
[2025-02-27 03:54] LABS: Hematocrit 36.7 % (37.0-47.0); Hemoglobin 12.9 g/dL (12.0-16.0); Mean Corp Hgb Conc. 35.1 g/dL (33.0-37.0); Mean Corpuscular Hgb 31.2 pg (27.0-31.0); Mean Corpuscular Volume 88.6 fL (81.0-99.0); Mean Platelet Volume 10.9 fL (7.4-10.4); Platelet Count 214 10^3/uL (130-400); Red Blood Cell Count 4.14 10^6/uL (4.20-5.40); Red Cell Dist. Width 12.9 % (11.5-14.5)
[2025-02-27 04:15] LABS: Blood Urea Nitrogen 31 mg/dl (7-17); Calcium 9.9 mg/dl (8.4-10.2); Carbon Dioxide 29 mmol/L (22-30); Chloride 96 mmol/L (98-107); Estimated Creatinine Clearance 79 ml/min; Glucose 217 mg/dl (70-99); Potassium 3.4 mmol/L (3.5-5.1); Sodium 135 mmol/L (135-145); eGFR > 60.00
[2025-02-27] MEDS: ZOFRAN 4 MG IV (04:26)
[2025-02-27] MEDS: LOPRESSOR 2.5 MG IV (05:08)
[2025-02-27] MEDS: KCL 40 MEQ PO (05:10)
--- NOTE | 2025-02-27 05:25 | PTCARENOTE ---
Patient unable to get comfortable in bed, complaining of 7/10 back pain. Refusing PO pain medications because they 'hurt her stomach'. Rectal Tylenol ordered by CORPORATE SAFETY DIRECTOR Shirley Saleh. AM labs show glucose of 60. Accucheck obtained, 79. Call meléndez within reach.
[2025-02-27 05:27] LABS: Magnesium 1.3 mg/dl (1.6-2.3)
--- NOTE | 2025-02-27 05:32 | W.PN.UPDATE ---
Addendum entered and electronically signed by Juan Tang PA-C 02/27/25 06:27:
-BP 80-90's following administration of 2.5 mg IV Lopressor
-Unable to start on Cardizem gtt. Gave amiodarone bolus and will start Amiodarone gtt, since SBP now up 103
-Will place hold on AM BB until seen by Cardiology
-Ongoing repletion of electrolytes
Original Note:
Update Note
Progress Note Update
-Pt with known a-fib, back in a-fib with RVR (150's). No CP/SOB
-SBP 117
-Will give 2.5 mg IV Lopressor, assess BP after for further management
-Will replete K, 3.4 and mg 1.3
-Will cont. to closely monitor
[2025-02-27] MEDS: MAGNESIUM SULFATE 100 IV (05:46)
[2025-02-27] MEDS: CALCIUM GLUCONATE 100 IV (05:58)
[2025-02-27] MEDS: CORDARONE 103 MG IV (06:08)
[2025-02-27] MEDS: CORDARONE 518 MG IV (07:21)
[2025-02-27 07:22] LABS: Glucose - Point of Care 327 mg/dl (70-99)
--- NOTE | 2025-02-27 08:00 | W.PN.UPDATE ---
Update Note
Progress Note Update
I saw and evaluated the patient. I reviewed the resident�s note and agree with findings and plan as documented in the resident�s note.
Denies CP/SOB.
Gen: NAD, AAOx3.
Eyes: EOMI, PERRLA, no scleral icterus.
Neck: supple.
CV: tachy, irreg/irreg, +S1/S2, no m/r/g.
Resp: remains CTAB, no rales, wheezes, or rhonchi.
Abd: +BS, soft, NT, ND
Skin: No rashes.
Neuro: remains CN 2-12 intact, non-focal.
Psych: Normal mood and affect.
Cardiac cath:
1. Successful percutaneous coronary artery intervention of an acute hazy, heavily thrombotic mid LAD 100% occlusion with KAVITHA 0 flow with one 3.0 x 18 mm Medtronic [place] drug-eluting stent, postdilated using IVUS guidance with a 3.25 x 15 mm NC
balloon at 18 juanita with an excellent angiographic result, complicated by mid to distal LAD no reflow requiring multiple rounds of various vasodilators.
2. Significantly elevated LVEDP at 30 mmHg.
Acute STEMI:
-Trop 48
-underlying CAD with prior [place] (silent)
-s/p cath with mid LAD 100% occlusion
-cont ASA/Brilinta/BB/statin
-check echo
-plan for repeat cath today
DM2:
-home Metformin/Januvia/Glipizide on hold
-a1c 8.6%
-on 02/26/25 pt required 53U total of insulin
-increase Lantus to 30U daily
-increase premeal insulin to 5U
-cont high resistance SSI
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
Persistent atrial fibrillation:
-O/N events of RVR noted
-hypotensive with IV BB, now PO BB decreased
-cont Amio gtt
-correct hypokalemia, hypomagnesemia
Other problems:
Essential HTN: cont BB at lower dose
HLD: cont statin
Former smoker
Prior TIA: cont statin/ASA
FULL/Heparin
[2025-02-27] MEDS: NOVOLOG FLEXPEN SC ×5 (08:02→20:57)
[2025-02-27] MEDS: NOVOLOG FLEXPEN-HIGH RESISTANCE 10 UNITS SC ×2 (08:03→12:54)
[2025-02-27] MEDS: TOPROL XL 12.5 MG PO (08:04)
[2025-02-27] MEDS: LASIX 40 MG IV (08:05)
[2025-02-27] MEDS: HEPARIN 5000 UNITS SC (08:05)
[2025-02-27] MEDS: BRILINTA 90 MG PO ×2 (08:05→20:58)
[2025-02-27] MEDS: LOW STRENGTH ASPIRIN 81 MG PO (08:05)
[2025-02-27] MEDS: LEXAPRO 10 MG PO (08:05)
[2025-02-27] MEDS: LANTUS 0.1 UNITS SC (08:12)
[2025-02-27] MEDS: COZAAR PO (08:40)
--- NOTE | 2025-02-27 08:48 | PN.DE.MGMTRT ---
Insulin Management
- -
02/27/2025: Diabetes Management Consult
85 year old female with PMH: HTN, HLD, PAF on AC, GERD, MVP, h/o hemorrhoids and T2DM. Pt presented to the ED with substernal chest pain due to an Acute STEMI and underlying CAD with prior MS (silent). Pt underwent successful PCI to her mid LAD with
100% occlusion with EULOGIO
Pt was taking [id number] mg BID and Glipizide 5mg daily prior to admission. She routinely follows up with Dr. Zavala her PCP for diabetes care. A1C 8.6%, Cr 0.6, eGFR >60.
Pt is currently NPO for repeat cardiac cath. She is awake, alert, oriented, sitting up in chair, offers no complaints, grand-dtr Guerita at bedside.
Of note, pt required 53 units of insulin yesterday. Received Lantus 10 units earlier this morning, dose has been increased to 30 units and AC NovoLog to 5 units with high resistance SSI by Dr. Jose. pt will receive and additional 20 units of Lantus
to make 30 units.
Will not make any changes to current regimen: Lantus 30 units in AM, NovoLog 5 units AC and moderate corrective with meals.
States she has a working glucose monitor at home with enough supplies.
Diabetes History
- -
Type of Diabetes: 2 requiring insulin
Pre-Admission Diabetes Regimen
02/27/25
03:28
Creatinine 0.6
Lab Results
Hemoglobin A1c 8.6 % (4.0-5.6) H 02/26/25 02:42
Insulin Pump Settings
IP Diabetes Regimen
02/26/25 02/26/25 02/26/25
09:12 09:22 11:39
Glucose 421 H
POC Glucose 408 H 416 H
02/26/25 02/26/25 02/26/25
12:01 14:15 17:43
Glucose 384 H
POC Glucose 331 H 303 H
02/26/25 02/27/25 02/27/25
22:29 03:19 03:28
Glucose 217 H
POC Glucose 227 H 239 H
02/27/25
07:21
Glucose
POC Glucose 327 H
Meal type: Dinner
Amount consumed: 100%
Patient Education
[2025-02-27 08:50] LABS: ACT-LR - POC 310 Seconds (116-155)
[2025-02-27 08:50] LABS: ACT-LR - POC 200 Seconds (116-155)
[2025-02-27 08:50] LABS: ACT-LR - POC 290 Seconds (116-155)
[2025-02-27] MEDS: LANTUS 0.2 UNITS SC (09:46)
--- NOTE | 2025-02-27 12:10 | CM ---
Reviewed chart. Met with Mrs. Cueto to review discharge plans. She states prior to admission she resides alone in a two story home with five steps to enter. She states she has an elevator to get to the second floor. She states prior to admission
she was independent with her ambulation in the home and uses a single point cane in the community. She states she has a single point cane at home. she states she has a prescription plan and uses [facility]. She states she has [facility] after
her knee surgery. Will need to see her current functional level to see if she will have any skilled care needs. Medical work-up in progress. The discharge plan is to return home when medically stable.
[2025-02-27 12:49] LABS: Glucose - Point of Care 348 mg/dl (70-99)
[2025-02-27] MEDS: LANOXIN 500 MCG IV (12:55)
--- NOTE | 2025-02-27 13:06 | W.PN.HOSP.TC ---
Today's Communication/Plan
-
PCI today
Assessment / Plan
Assessment / Plan
Impression
Acute STEMI
Type 2 diabetes mellitus
Persistent A-fib
Essential hypertension
Hyperlipidemia
Former smoker
Prior TIA
PLAN
Acute STEMI:
-Trop 48
-underlying CAD with prior [place] (silent)
-s/p cath with mid LAD 100% occlusion
-cont ASA/Brilinta/BB/statin
-check echo
-plan for repeat cath today
DM2:
-home Metformin/Januvia/Glipizide on hold
-a1c 8.6%
-on 02/26/25 pt required 53U total of insulin
-increase Lantus to 30U daily
-increase premeal insulin to 5U
-cont high resistance SSI
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
Persistent atrial fibrillation:
-O/N events of RVR noted
-hypotensive with IV BB, now PO BB decreased
-cont Amio gtt
-correct hypokalemia, hypomagnesemia
Other problems:
Essential HTN: cont BB at lower dose
HLD: cont statin
Former smoker
Prior TIA: cont statin/ASA
FULL/Heparin
Anticipated Discharge: > 48 hours
Subjective/Interval History
-
Date of Service: February 27, 2025
afib overnight
Objective Data
-
Labs:
Laboratory Results
02/27/25 02/27/25
03:28 13:01
WBC 18.0 H
Hgb 12.9
Hct 36.7 L
Plt Count 214
Sodium 135 Pending
Potassium 3.4 L Pending
Chloride 96 L Pending
Carbon Dioxide 29 Pending
BUN 31 H Pending
Creatinine 0.6 Pending
Glucose 217 H Pending
Calcium 9.9 Pending
Total Bilirubin Pending
AST Pending
ALT Pending
Alkaline Phosphatase Pending
Vital Signs:
Vital Signs
Temp Pulse Resp BP Pulse Ox
97.3 F 131 18 80/50 99
02/27/25 11:49 02/27/25 12:55 02/27/25 11:49 02/27/25 12:06 02/27/25 11:49
I&O
02/26/25 02/27/25 02/28/25
06:59 06:59 06:59
Output Total 750 / 750
Balance -750 / -750
Review of Systems
-
All other systems: Reviewed and negative
Physical Exam
-
General: Comfortable
HEENT: Normocephalic and Atraumatic
Respiratory: Clear to Auscultation
Cardiac: Irregular Rhythm
GI: Nondistended
Musculoskeletal: No Edema
Neuro: AO x 3
Psych: Calm
Data Reviewed
-
Labs: Labs Reviewed by me and Discussed with Physician
[2025-02-27 13:25] LABS: ALT (SGPT) 63 U/L (0-35); AST (SGOT) 263 U/L (14-36); Albumin 4.5 g/dl (3.5-5.0); Alkaline Phosphatase 69 U/L (38-126); Blood Urea Nitrogen 34 mg/dl (7-17); Calcium 10.3 mg/dl (8.4-10.2); Carbon Dioxide 30 mmol/L (22-30); Chloride 93 mmol/L (98-107); Estimated Creatinine Clearance 47 ml/min; Glucose 325 mg/dl (70-99); Potassium 4.2 mmol/L (3.5-5.1); Sodium 135 mmol/L (135-145); Total Bilirubin 1.8 mg/dl (0.2-1.3); Total Protein 6.9 g/dl (6.3-8.2); eGFR 55.55
[2025-02-27 13:38] LABS: Lactic Acid 3.4 mmol/L (0.7-2.0)
[2025-02-27 16:13] LABS: Lactic Acid 1.8 mmol/L (0.7-2.0)
--- NOTE | 2025-02-27 17:00 | PTCARENOTE ---
~[id number]: Handoff report received from nightshift RN. Pt AOx4, Afib 120s-140s on tele, 99% on 2L NC, patient weaned to RA. Pt denies pain and n/v at this shwetha at this time. SBP 90s-100s, pt asymptomatic. R radial site CDI and ecchymotic. 2/
palpable pulses. Oral care completed independently. NPO at this time togo to CCL later today. All needs met at this time, call meléndez within reach.
~[id number]: pt walking to bathroom, felt SOB, 2L NC placed back on. Patient states 'I feel better with the O2 on.' BPs low, SBP 80s-90s at this time, amio held per order and informed Dr. Arciniega; per Dr. Arciniega, do not turn amio off.
~8411-5317: Bloodwork drawn and sent to lab, waiting for results. Digoxin given per order. Pt HR Afib 120s.
~6386-4620: Pt in bed at this time with family visiting. Pt Afib 100s-110s now after digoxin. Pt remains NPO for CCL procedure.
~1530: Patient transported to [facility] for RHC.
~1630: report called to Amarilys in CVICU.
--- NOTE | 2025-02-27 17:23 | ITS.CL.CATH ---
Risk And Insurance Manager - Catheterization
Cardiac Catheterization
Procedure Report:
RIGHT HEART CATHETERIZATION AND INTRA-AORTIC BALLOON PUMP PLACEMENT
Date of Procedure: February 27, 2025
Referring: Chelle Arciniega MD, [facility], [facility]
INDICATION: Concern for cardiogenic shock
ACCESS:
1. Right common femoral artery, 8 [place] sheath, under ultrasound guidance using a micropuncture kit.
2. Right internal jugular vein, 7.5 [place] sheath, under ultrasound guidance using a micropuncture kit.
PROCEDURE:
1. Successful placement of a 50 cc intra-aortic balloon pump via right common femoral artery.
2. Successful placement of a [place]-Shaina catheter via right internal jugular vein.
3. Moderate sedation
Hemodynamics (mmHg):
RA (m) : 14
RV (s/d,m) : 31/9, 12
PA (s/d, m) : 35/21, 25
PCWP (m) : 22
PA saturation: 57.7% on room air
AO saturation: 95.0% on room air
Cardiac Output : 2.83 L/min
Cardiac Index : 1.43 L/min/m-2
Cardiac Output : 3.03 L/min by thermodilution
Cardiac Index : 1.5 to L/min/m-2 by thermodilution
Systemic vascular resistance: 1839 dsc^(-5)
Pulmonary vascular resistance: 2.83 gastelum unit
Cardiac power output: 0.52 W
Nathalie: 1
Given concern based on hemodynamics for cardiogenic shock, decision was made to proceed with mechanical circulatory support with a 50 cc intra-aortic balloon pump. After the usual sterile prep and drape, the 8 Fr vascular sheath and the IABP in the
right groin was exchanged out for a 9Fr vascular sheath over a 0.025' J-tipped wire into the right common femoral artery.� An 50cc intra-aortic balloon pump (IABP) was then advanced through the sheath over a new long J-tipped 0.025' guidewire into
the thoracic aorta with the radio-opaque tip marker of the IABP placed at the level of the anastasiya using fluoroscopic guidance.� The IABP was then flushed and connected to its console.� There was excellent hemodynamic augmentation noted at 1:1 and
there was no angina or SOB noted at the completion of the procedure.� There were no intra-procedural complications.� The sheath was sewn in place in the right groin with Stat-Locks used to secure the IABP.��The right IJ [place]-Shaina catheter also also
sutured and secured in place.
RADIATION SUMMARY: Fluoro Time (min): 1.7, Dose (mGy): 8.62 DAP (Gy.cm2) : 1.16
CONCLUSION:
1. Increased right and left sided filling pressures and reduced cardiac output in the setting of elevated systemic vascular resistance.
Chelle Arciniega MD, FACC, [facility]
[2025-02-27] MEDS: NOVOLOG FLEXPEN-HIGH RESISTANCE SC ×2 (17:59→20:58)
[2025-02-27 18:19] LABS: Mixed Venous O2 Saturation 65.8 %
[2025-02-27] MEDS: HEPARIN 25000 UNITS/250 ML IV (18:28)
[2025-02-27 18:33] LABS: Lactic Acid 1.1 mmol/L (0.7-2.0)
[2025-02-27] MEDS: LIPITOR 40 MG PO (18:33)
[2025-02-27] MEDS: VASOTEC 2.5 MG PO (18:33)
[2025-02-27] MEDS: LASIX 20 MG IV (18:33)
[2025-02-27 18:35] LABS: ALT (SGPT) 55 U/L (0-35); AST (SGOT) 189 U/L (14-36); Albumin 3.6 g/dl (3.5-5.0); Alkaline Phosphatase 65 U/L (38-126); Blood Urea Nitrogen 36 mg/dl (7-17); Calcium 9.2 mg/dl (8.4-10.2); Carbon Dioxide 31 mmol/L (22-30); Chloride 97 mmol/L (98-107); Estimated Creatinine Clearance 59 ml/min; Glucose 188 mg/dl (70-99); Potassium 3.9 mmol/L (3.5-5.1); Sodium 134 mmol/L (135-145); Total Bilirubin 1.4 mg/dl (0.2-1.3); Total Protein 5.8 g/dl (6.3-8.2); eGFR > 60.00
[2025-02-27 18:39] LABS: Glucose - Point of Care 191 mg/dl (70-99)
--- NOTE | 2025-02-27 19:10 | PTCARENOTE ---
received pt from the [facility] into 2263 ~17:20pm. Afib on tele w HR 90's, BP via right femoral 98/55, Right IJ cordis w swan floated to 48, PAP 24/14, CVP 6, CI 1.58. Right femoral IABP zeroed, Lungs diminished, pox 98% on 2L NC. +bs, tolerating PO
intake, skinner catheter placed as ordered by Dr. Arciniega. Routine labs, EKG, CXR obtained as ordered. Heparin infusion initiated, amiodarone infusion decreased to 0.5mg as instructed. Pt denies pain. Family updated.
DRIPS: Heparin 1200 units/kg/hr
Amiodarone 0.5mg/min
[2025-02-27 20:23] LABS: Magnesium 2.1 mg/dl (1.6-2.3)
--- NOTE | 2025-02-27 20:35 | PTCARENOTE ---
received pt from previous rn. Pt AAOx4, Afib on tele w HR 90's, Right IJ cordis w swan floated to 48. Right femoral IABP zeroed, Lungs diminished, pox 99% on 2L NC. +bs, tolerating PO intake. skinner draining clear yellow urine. pt denies pain. plan
of care discussed questions encouraged.
gtts: Heparin 1200 units/kg/hr
Amiodarone 0.5mg/min
--- NOTE | 2025-02-27 20:36 | W.PN.UPDATE ---
Update Note
Progress Note Update
The patient had an IABP placed earlier today for hemodynamic support out of concern for cardiogenic shock in the context of recent [place] and PCI.
CXR post procedure showed that the IABP had migrated cephalad.
I discussed the situation with Dr. Arciniega. We agreed that 3-5 cm withdrawal of the IABP was appropriate.
The dressing was taken down and the IABP was withdrawn. Portable CXR confirmed improved position (at the level of the tracheal anastasiya).
The IABP was redressed.
The patient tolerated the procedure well.
--- NOTE | 2025-02-27 21:18 | PTCARENOTE ---
Dr. Burris at bedside to reposition IABP. CXR completed to confirm position. IABP redressed. pt tolerated w/o incident.
[2025-02-27] MEDS: KCL 20 MEQ PO (22:55)
[2025-02-28] VITALS (30 sets, daily range): BP systolic 93–137; BP diastolic 34–76
[2025-02-28] MEDS: TYLENOL 650 MG PO ×2 (00:05→16:58)
--- NOTE | 2025-02-28 00:11 | PTCARENOTE ---
pt c/o of lower back pain. SEE MAR, A-fib per tele monitor HR 90-100s. soft bps. assessment remains unchanged otherwise.
[2025-02-28 00:57] LABS: Glucose - Point of Care 169 mg/dl (70-99)
[2025-02-28 01:12] LABS: Lactic Acid 0.6 mmol/L (0.7-2.0)
[2025-02-28 03:42] LABS: Hematocrit 35.5 % (37.0-47.0); Hemoglobin 12.2 g/dL (12.0-16.0); Mean Corp Hgb Conc. 34.4 g/dL (33.0-37.0); Mean Corpuscular Hgb 31.9 pg (27.0-31.0); Mean Corpuscular Volume 92.7 fL (81.0-99.0); Mean Platelet Volume 11.5 fL (7.4-10.4); Platelet Count 173 10^3/uL (130-400); Red Blood Cell Count 3.83 10^6/uL (4.20-5.40); Red Cell Dist. Width 12.9 % (11.5-14.5); White Blood Cell Count 14.8 10^3/uL (4.8-10.8)
--- NOTE | 2025-02-28 03:46 | PTCARENOTE ---
labs sent. a-fib per tele monitor, pt UO decreased, pt BP are soft CTPA Ed Kitty made aware, pt asymptomatic and resting comfortably in bed.
[2025-02-28] MEDS: CORDARONE 518 MG IV (03:56)
[2025-02-28 04:41] LABS: Blood Urea Nitrogen 38 mg/dl (7-17); Carbon Dioxide 30 mmol/L (22-30); Chloride 99 mmol/L (98-107); Estimated Creatinine Clearance 59 ml/min; Glucose 160 mg/dl (70-99); Magnesium 1.9 mg/dl (1.6-2.3); Sodium 135 mmol/L (135-145); eGFR > 60.00
[2025-02-28 06:18] LABS: Mixed Venous O2 Saturation 65.7 %
[2025-02-28 06:26] LABS: Lactic Acid 0.7 mmol/L (0.7-2.0)
--- NOTE | 2025-02-28 07:28 | PN.DE.MGMTRT ---
Insulin Management
- -
02/28/2025: Diabetes Management Follow up
85 year old female admitted with STEMI on 02/26/25. PMH: HTN, HLD, PAF on AC, GERD, MVP, h/o hemorrhoids and T2DM. Pt presented to the ED with substernal chest pain due to an Acute STEMI and underlying CAD with prior [place] (silent). Pt underwent
successful PCI to her mid LAD with 100% occlusion with EULOGIO
Pt was taking [id number] mg BID and Glipizide 5mg daily prior to admission. She routinely follows up with Dr. Zavlaa her PCP for diabetes care. A1C 8.6%, Cr 0.6, eGFR >60.
Pt awake, alert, oriented, resting up in bed, offers no complaints, grand-dtr Carmen at bedside.
Pt is s/p RHC, noted for Cardiogenic shock, ICM EF 15-20% and Acute HFrEF s/p IABP placement 02/27/25
02/27 Glucose was more stable later in the day, was 169 @MN, FBG 160 V this AM.
Will make no changes to current regimen: Lantus 30 units in AM and NovoLog 5 units AC and moderate corrective with meals.
States she has a working glucose monitor at home with enough supplies.
Diabetes History
- -
Type of Diabetes: 2 requiring insulin
Pre-Admission Diabetes Regimen
02/27/25 02/27/25 02/28/25
13:01 18:12 03:31
Creatinine 1.0 0.8 0.8
Lab Results
Hemoglobin A1c 8.6 % (4.0-5.6) H 02/26/25 02:42
Insulin Pump Settings
IP Diabetes Regimen
02/27/25 02/27/25 02/27/25
12:49 13:01 18:12
Glucose 325 H 188 H
POC Glucose 348 H
02/27/25 02/28/25 02/28/25
18:38 00:55 03:31
Glucose 160 H
POC Glucose 191 H 169 H
Meal type: Breakfast
Patient Education
--- NOTE | 2025-02-28 07:34 | W.PN.HOSP.TC ---
Today's Communication/Plan
-
see plan
Assessment / Plan
Assessment / Plan
Gen: NAD, AAOx3.
Eyes: EOMI, PERRLA, no scleral icterus.
Neck: supple.
CV: irreg/irreg, +S1/S2, no m/r/g.
Resp: CTAB anteriorly, no rales, wheezes, or rhonchi.
Abd: +BS, soft, NT, ND
Skin: No rashes. No LE edema
Neuro: CN 2-12 intact, non-focal.
Psych: Normal mood and affect.
Cardiac cath on admission:
1. Successful percutaneous coronary artery intervention of an acute hazy, heavily thrombotic mid LAD 100% occlusion with KAVITHA 0 flow with one 3.0 x 18 mm Medtronic [place] drug-eluting stent, postdilated using IVUS guidance with a 3.25 x 15 mm NC
balloon at 18 juanita with an excellent angiographic result, complicated by mid to distal LAD no reflow requiring multiple rounds of various vasodilators.
2. Significantly elevated LVEDP at 30 mmHg.
Cath 02/27/25:
1. Successful placement of a 50 cc intra-aortic balloon pump via right common femoral artery.
2. Successful placement of a [place]-Shaina catheter via right internal jugular vein.
Echo: Normal left ventricular chamber size. EF 15-20% visually.
Severe global hypokinesis with mid anteroseptal, mid anterior, mid septal, and
apical akinesis. Mild septal hypertrophy ( 1.1 cm). Stage I diastolic
dysfunction suggestive of abnormal relaxation.
Posterior mitral annular calcification. Mitral valve opens normally. Mild
mitral regurgitation.
Structurally normal tricuspid valve. Tricuspid valve opens normally. Moderate
tricuspid regurgitation. Estimated pulmonary artery pressure of 54 mmHg.
Assuming a right atrial pressure of 15 mmHg.
Pleural effusion present.
Since echo 08/01/2022, ejection fraction has decreased from 60% to 15-20% with
regional wall motion abnormalities as noted. There is now moderate TR with
moderate pulm hypertension.
Acute STEMI:
-Trop peaked at 154
-underlying CAD with prior [place] (silent)
-s/p cath on admission with mid LAD 100% occlusion with EULOGIO placement
-echo above
-Intra-aortic balloon pump via R common femoral artery (now 2:1) and R IJ swan-Shaina placed on 02/27/25
-cont ASA/Brilinta/BB/statin
-cont heparin gtt
DM2:
-home Metformin/Januvia/Glipizide on hold
-a1c 8.6%
-on 02/26/25 pt required 53U total of insulin
-cont Lantus/premeal aspart
-high resistance SSI/accuchecks/diabetic diet
-diabetes PERSONAL LINES ADVISOR following
Persistent atrial fibrillation:
-O/N 02/26/25-02/27/25 with RVR
-hypotensive with IV BB and PO BB was decreased, now stopped
-cont Amio gtt
Other problems:
Hypokalemia, resolved
Hypomagnesemia, resolved
Essential HTN: no antihypertensives (aside from very low dose ACEi) at this time of hypertension
HLD: cont statin
Former smoker
Prior TIA: cont statin/ASA
FULL/Heparin
Total critical care time spent = 34 min
Anticipated Discharge: > 48 hours
Subjective/Interval History
-
Date of Service: February 28, 2025
Reports mild SOB. Denies CP.
Objective Data
-
Labs:
Laboratory Results
02/28/25 02/28/25 02/28/25
00:53 03:31 08:30
WBC 14.8 H
Hgb 12.2
Hct 35.5 L
Plt Count 173
APTT 143.0 H Pending
Sodium 135
Potassium 4.0
Chloride 99
Carbon Dioxide 30
BUN 38 H
Creatinine 0.8
Glucose 160 H
Calcium 9.0
Vital Signs:
Vital Signs
Temp Pulse Resp BP Pulse Ox
98.7 F 99 25 105/43 97
02/28/25 06:00 02/28/25 06:35 02/28/25 06:35 02/28/25 06:00 02/28/25 06:35
I&O
02/27/25 02/28/25 03/01/25
06:59 06:59 06:59
Intake Total 642.2 / 642.2
Output Total 675 / 675
Balance -32.8 / -32.8
--- NOTE | 2025-02-28 08:00 | PTCARENOTE ---
pt received from previous RN, oriented, bedrest. A-fib on the monitor, HR 80-100s. Amiodarone gtt running as ordered. PAP 2-s/10s, CVP~9-10. CI 1.5, ANNY Landaverde aware. RFA IABP 1:1, max augmentation. palpable pulses. pt on 2LNC, 98-100% POX. lungs
clear. denies CP or SOB. pt abdomen s/n, denies n/v. Hernandez in place, clear yellow urine. R wrist c/d/i. RFA site intact. RIJ Cordis/swan maintained. R femoral [place] dampened, PRESSFITTER Yadira Houser at bedside to manually flush, improved. PIV x2. heparin gtt
running as ordered. ANNY Landaverde aware of Mg result on am labs. see worklist for VS, I&O and assessment.
[2025-02-28] MEDS: LASIX 20 MG IV ×2 (09:13→16:58)
[2025-02-28] MEDS: LEXAPRO 10 MG PO (09:13)
[2025-02-28] MEDS: LOW STRENGTH ASPIRIN 81 MG PO (09:13)
[2025-02-28] MEDS: BRILINTA 90 MG PO ×2 (09:13→20:12)
[2025-02-28] MEDS: MAGNESIUM OXIDE 500 MG PO (09:23)
[2025-02-28] MEDS: LANTUS 0.3 UNITS SC (09:24)
[2025-02-28] MEDS: NOVOLOG FLEXPEN 5 UNITS SC ×3 (09:26→17:33)
[2025-02-28] MEDS: NOVOLOG FLEXPEN-HIGH RESISTANCE 4 UNITS SC (09:26)
[2025-02-28 09:27] LABS: Glucose - Point of Care 201 mg/dl (70-99)
--- NOTE | 2025-02-28 09:28 | W.PN.CARDCBS ---
Addendum entered and electronically signed by Kem Betts MD 02/28/25 13:46:
Attending addendum: Patient seen and examined on several occasions throughout the morning and afternoon. Patient was independently examined by me. I looked at chest xray, angiogram, echo, labs and flow sheet. I placed IABP at 1:2 for a while
then 1:3 for a while. Labs followed and hemodynamics followed
-At this point would recommend trial of rate control with amiodarone: Continue IV today and start 400mg x 1 then 200mg tid
-Keep IABP at 1:1 overnight and will attempt wean in am
-Check lactic acid this afternoon and in am and chem complete
-Continue IV heparin
-SVR 1500 w goal closer to 1000. Enalapril held this am. Would try to give evening dose of Enalapril
-Discussed with patient and daughter
-CCT spent this morning 90 min
Original Note:
Today's Communication / Plan
-
IABP at 1:2 with plan to remove later today pending labs and ongoing assessment of hemodynamics
Check mixed venous and lactate level
Heparin gtt running for IABP and change back to Eliquis once IABP removed
Change Brilinta to Plavix once Eliquis restarted with appropriate loading dose of Plavix
Diurese with Lasix 20 mg IV BID
Remains in rapid Afib with amio gtt at 0.5 mg/min, will try another dose of digoxin IV
Patient and daughter updated at bedside
Critical care time 51 minutes
Impression / Plan
-
PCP: Dr. Mukund Welch
Outpatient Neurology Technician: Dr. Kem Zavala
Impression:
Admitted with STEMI 02/26/25
Cardiogenic shock
s/p RHC with CI 1.43, SVR 1839 02/27/25
s/p IABP placement 02/27/25
ICM EF 15-20%
Acute HFrEF
CAD
acute anterolateral STEMI with 100% thrombotic occlusion of the mid LAD with 3.0 x 18 mm Medtronic Dangelo EULOGIO, complicated by no reflow treated with rounds of vasodilators 02/26/25
residual 75 to 80% distal RCA stenosis just proximal to the bifurcation of the RPDA and the RPL
Hypertension
Hyperlipidemia
Type 2 diabetes mellitus, [id number]
Coronary artery disease, questionable prior [place] per patient
Paroxysmal atrial fibrillation
Afib with RVR starting 02/26/25
Chronic anticoagulation with Eliquis
h/o TIA
Ambulatory dysfunction, using a cane
Prior falls
Former smoker
Lives alone independently
Echo 08/01/22: EF 55-60%
Echo 02/26/25: EF 15-20%, severe global hypokinesis with mid anteroseptal, mid anterior, mid septal, and apical akinesis, stage I diastolic dysfunction, mild MR, mod TR with PAP 54 mmHg
Plan:
-Patient admitted with STEMI 02/26/25 and had LAD PCI complicated by no reflow that was treated with rounds of vasodilator. Patient with residual RCA disease and plan was for staged PCI on 02/27/25, but then started with rapid Afib 02/26/25 PM and
concern for cardiogenic shock so RCA PCI deferred and RHC performed 02/27/25 that confirmed cardiogenic shock.
-Patient with IABP in place via right femoral and running at 1:2.
-CI 1.52 and SVR 1400 via hemodynamics performed by nursing 02/28/25
-Heparin gtt running for IABP and once removed will transition back to outpatient dose of Eliquis 5 mg BID (age 85, Cre 0.8, wt 86.8 kg), likely 02/28/25 PM
-Once we resume Eliquis will change Brilinta to Plavix and plan on triple therapy with aspirin, Plavix and Eliquis for 1 week and then Plavix and Eliquis thereafter for the next year.
-Check mixed venous blood gas and lactate level now, ordered by me.
-Cont Lasix 20 mg IV BID
-ABP 79/56, will hold enalapril 2.5 mg BID for SBP less than 90. Patient had been on losartan 25 mg daily prior to admission
-Outpatient dose of Lopressor 50 mg BID is on hold and will not restart given cardiogenic shock.
-Patient with known paroxysmal Afib and had recurrence with rapid Afib starting 02/26/25 PM. Patient remains on amiodarone gtt at 0.5 mg/min, orders adjusted by me 02/28/25.
-Patient given digoxin 0.5 mg IV once 02/27/25. HRs remain elevated 02/28/25, will try a dose of digoxin 0.25 mg IV x1 now.
-ECG reviewed by me 02/28/25, remains in rapid Afib with QTc 554 in Afib with underlying RBBB.
-Peak Troponin 154. EF newly reduced at 15-20% by echo 02/26/25.
-Cardiogenic shock management as above.
-Will continue to reassess GDMT following acute phase.
-Patient was taking chlorthalidone 25 mg MWF prior to admission and will likely need standing Lasix dose upon d/c
-Eventual outpatient cardiac rehab, cardiac rehab consulted
-LDL 44. Outpatient dose of simvastatin changed to atorvastatin
-HgbA1c 8.6%. Outpatient doses of metformin 1000 mg BID and glipizide 5 mg daily are on hold. Hospitalist following along as well and insulin ordered
HPI: Patient is a 85-year-old female with past medical history of hypertension, hyperlipidemia, type 2 diabetes mellitus, [id number]-wyygqgsit, former smoker coronary artery disease with a prior silent [place] per patient, persistent atrial fibrillation
on chronic Eliquis and beta-danny, prior TIA, some ambulatory dysfunction using a cane with prior falls however none recently who presents from home brought in by EMS after having sudden onset substernal chest discomfort around 930 this evening
while she was at rest watching TV associated with shortness of breath and generalized fatigue. She went to bed on without any difficulties and had no other complaints throughout the day yesterday. She ate her dinner without any
abnormalities. She was called in as a prehospital ST elevation [place] with EKG showing significant anterolateral ST elevations concerning for a anterolateral ST elevation [place] for which heart catheterization lab was activated. In the emergency room she
continued to have 6-8 out of 10 chest discomfort and she received 325 mg of aspirin, 180 mg of Brilinta, 4000 units of unfractionated heparin. Last dose of Eliquis was on evening of February 25, 2025. She denies any allergies to contrast dye. After
detailed informed consent was obtained she was emergently brought up to the heart catheterization lab. She definitely saw her grad intern earlier this week on Thursday with no medication changes and she was otherwise doing well so no other changes
were made. No recent stress test per patient.
Progress Note - Neurology Technician
Subjective
Date of Service: February 28, 2025
Denies chest or groin pain
Objective
Labs:
02/28/25 03:31
02/28/25 03:31
Labs
Hgb 12.2 g/dL (12.0-16.0) 02/28/25 03:31
Hct 35.5 % (37.0-47.0) L 02/28/25 03:31
Plt Count 173 10^3/uL (130-400) 02/28/25 03:31
PT 17.5 Sec (11.4-14.6) H 02/26/25 00:37
INR 1.41 02/26/25 00:37
APTT 143.0 Sec (23.4-35.0) H 02/28/25 00:53
Sodium 135 mmol/L (135-145) 02/28/25 03:31
Potassium 4.0 mmol/L (3.5-5.1) 02/28/25 03:31
BUN 38 mg/dl (7-17) H 02/28/25 03:31
Creatinine 0.8 mg/dL (0.6-1.0) 02/28/25 03:31
Glucose 160 mg/dl (70-99) H 02/28/25 03:31
Troponins
02/26/25 02/26/25 02/26/25
00:37 02:42 07:13
Troponin I 2.260 H* 48.900 H* D 154.000 H* D
02/26/25
14:32
Troponin I 103.000 H* D
Vital Signs and I&O:
Vital Signs
Temp Pulse Resp BP Pulse Ox
98.9 F 85 19 125/57 99
02/28/25 09:00 02/28/25 09:10 02/28/25 09:10 02/28/25 09:00 02/28/25 09:10
Vital Signs
Temp Pulse Resp BP Pulse Ox
98.9 F 85 19 125/57 99
02/28/25 09:00 02/28/25 09:10 02/28/25 09:10 02/28/25 09:00 02/28/25 09:10
Intake & Output
02/26/25 02/27/25 02/28/25 03/01/25
06:59 06:59 06:59 06:59
Intake Total 642.2 / 695.5 173.3 / 173.3
Output Total 750 / 750 675 / 675 75 / 75
Balance -750 / -750 -32.8 / 20.5 98.3 / 98.3
Physical Exam
Physical Exam
GEN: NAD. AAOx3
HEENT: EOMI, MMM
LUNGS: 2 L NC. No audible wheeze
CV: Afib on tele with RVR. No murmur
ABD: ND
EXT: No edema B/L LE. Right groin without hematoma
NEURO: Gross non-focal
SKIN: No rash
--- NOTE | 2025-02-28 09:30 | PTCARENOTE ---
@~0884 Dr. Betts at bedside, placed IABP 1:2, tolerating. Saima MCCORMICK aware of CI and SVR. daughter at bedside. Hernandez care performed.
[2025-02-28 10:37] LABS: Mixed Venous O2 Saturation 65.9 %
[2025-02-28 10:56] LABS: Lactic Acid 0.7 mmol/L (0.7-2.0)
[2025-02-28] MEDS: VASOTEC PO (11:10)
[2025-02-28] MEDS: LANOXIN 250 MCG IV (11:20)
--- NOTE | 2025-02-28 12:30 | PTCARENOTE ---
Digoxin IVP given as ordered. Saima MCCORMICK and Dr. Betts aware of hemodynamics. IABP placed to 1:[address] Bet[address].
--- NOTE | 2025-02-28 13:35 | PTCARENOTE ---
Dr. Betts aware of hemodynamics, IABP placed to 1:[address] Betts @6046.
[2025-02-28 13:48] LABS: Glucose - Point of Care 162 mg/dl (70-99)
[2025-02-28] MEDS: NOVOLOG FLEXPEN-HIGH RESISTANCE 2 UNITS SC ×2 (13:48→17:33)
[2025-02-28] MEDS: HEPARIN 25000 UNITS/250 ML IV (14:08)
[2025-02-28] MEDS: PACERONE 400 MG PO (15:28)
[2025-02-28 15:32] LABS: Mixed Venous O2 Saturation 66.4 %
[2025-02-28 15:47] LABS: APTT 75.3 Sec (23.4-35.0)
--- NOTE | 2025-02-28 16:00 | PTCARENOTE ---
pt VSS, ANNY Landaverde aware of lactic and MVO2. pt washed w/ CHG wipes, gown and linens changed. R groin dressing changed. Dr. Betts aware of positional RFA waveform.
[2025-02-28] MEDS: LIDOCAINE 4% PATCH 1 PATCH TOPICAL (16:59)
[2025-02-28] MEDS: PACERONE 200 MG PO ×2 (16:59→22:10)
[2025-02-28] MEDS: LIPITOR 40 MG PO (17:00)
[2025-02-28 17:33] LABS: Glucose - Point of Care 154 mg/dl (70-99)
--- NOTE | 2025-02-28 20:00 | PTCARENOTE ---
received pt from previous rn. Pt AAOx4, Afib on tele w HR 90's, a-line soft bps CTPA Ed made aware, ART line and BP cuff pressures are higher. See VS in worklist. Right IJ cordis w swan floated to 48. Right femoral IABP (1:1); max augmentation,
zeroed, Lungs diminished, pox 99% on 2L NC. +bs, tolerating PO intake. skinner draining clear yellow urine. R wrist c/d/i. RFA site intact. PIV x2plan of care discussed questions encouraged.
gtts: Heparin 1000 units/kg/hr
Amiodarone 0.5mg/min
[2025-02-28] MEDS: VASOTEC 2.5 MG PO (21:18)
[2025-02-28] MEDS: ULTRAM 25 MG PO (22:10)
--- NOTE | 2025-02-28 23:40 | PTCARENOTE ---
pt c/o of lower back pain. SEE MAR and repositioning, A-fib per tele monitor HR 90-100s. assessment remains unchanged otherwise.
[2025-03-01] VITALS (27 sets, daily range): BP systolic 93–144; BP diastolic 45–86; BMI 30.1
--- NOTE | 2025-03-01 03:54 | PTCARENOTE ---
pt resting in bed comfortably, A-fib per tele monitor HR 100s. assessment remains unchanged.
[2025-03-01] MEDS: CORDARONE 518 MG IV (06:16)
[2025-03-01 06:24] LABS: Mixed Venous O2 Saturation 76.4 %
[2025-03-01 06:29] LABS: Hemoglobin 12.6 g/dL (12.0-16.0); Mean Corp Hgb Conc. 34.1 g/dL (33.0-37.0); Mean Corpuscular Hgb 31.8 pg (27.0-31.0); Mean Corpuscular Volume 93.4 fL (81.0-99.0); Mean Platelet Volume 11.5 fL (7.4-10.4); Platelet Count 121 10^3/uL (130-400); Red Blood Cell Count 3.96 10^6/uL (4.20-5.40); Red Cell Dist. Width 12.7 % (11.5-14.5); White Blood Cell Count 11.1 10^3/uL (4.8-10.8)
[2025-03-01 06:35] LABS: Lactic Acid 0.5 mmol/L (0.7-2.0)
[2025-03-01 06:45] LABS: APTT 84.4 Sec (23.4-35.0)
[2025-03-01 07:15] LABS: ALT (SGPT) 37 U/L (0-35); AST (SGOT) 78 U/L (14-36); Albumin 2.8 g/dl (3.5-5.0); Alkaline Phosphatase 60 U/L (38-126); Blood Urea Nitrogen 26 mg/dl (7-17); Calcium 8.3 mg/dl (8.4-10.2); Carbon Dioxide 30 mmol/L (22-30); Chloride 102 mmol/L (98-107); Estimated Creatinine Clearance 79 ml/min; Glucose 134 mg/dl (70-99); Magnesium 1.7 mg/dl (1.6-2.3); Potassium 3.7 mmol/L (3.5-5.1); Sodium 135 mmol/L (135-145); Total Protein 5.1 g/dl (6.3-8.2); eGFR > 60.00
--- NOTE | 2025-03-01 07:45 | W.PN.CARDCBS ---
Addendum entered and electronically signed by Chelle Arciniega MD 03/01/25 16:34:
I saw and examined the patient.
The Oil Expeller's note was reviewed and I agree with the note.
Comment: IABP wean was attempted yesterday however patient did not tolerate it well with her indices and 1.3-1.5 and therefore she was placed back on one-to-one for support overnight in addition to medical therapy. Her numbers have improved over
night. This morning she complains of lower back pain but otherwise denies any chest discomfort. She has very mild difficulty with taking very deep breaths.
Vital signs and lab work reviewed. On exam patient is resting in bed, no acute distress, irregularly irregular heart rhythm, normal S1 and S2, no murmurs, rubs or gallops, right IJ [place]-Shaina catheter is in place. Right common femoral artery IABP
is in place, abdomen is soft, nontender, nondistended with active bowel sounds, warm extremities without significant edema with good distal pulses.
Recommendations
1. Over the day patient was seen at bedside multiple times as we weaned her IABP again. This morning when I saw her she was placed on 1-3 IABP with plan to repeat mixed venous sats as well as hemodynamics and lactate to see how well she would
tolerate this. I gave her an additional dose of enalapril at 2.5 mg given elevated SVR and given filling pressures were low to normal, we held off on morning Lasix dose.
2. Her heparin was continued throughout. Her heart rates were much better on IV amiodarone drip as well as p.o. loading.
3. Her repeat lab work at 1:3 on IABP showed a mixed venous sat stable at 72.1 with a lactate of 0.6, cuff blood pressure 109/60 with cardiac power output of 0.7, SVR 1412, PA pressure of 26/70, RA of 3.
4. IABP was placed back to one-to-one with plan to discontinue heparin. Once ACT was below 170, her intra-aortic balloon pump was pulled at bedside with successful hemostasis at 3:40 PM.
5. She will have a 6-hour bedrest with plan to resume heparin drip without a bolus 6 hours after hemostasis given persistent atrial fibrillation.
6. We will continue p.o. load of the amiodarone at 400 mg twice daily and plan to stop IV amiodarone at this point. Her heart rates at rest are staying less than 110 bpm in A-fib.
7. Given improved blood pressures overall, we will trial low-dose Aldactone at 12.5 mg now with hold parameters for systolic blood pressure less than 90 mmHg.
8. We will continue with further afterload reduction in the setting of elevated SVR with 5 mg of enalapril twice daily. Hold off on any further beta-blockers given recent cardiogenic shock.
9. [place]-Shaina catheter via right IJ access left in place for overnight monitoring of lactates, mixed venous sats and thermal dilution cardiac output as well as invasive hemodynamics. Suspect we will be able to take this out tomorrow morning. We
will check a chest x-ray in the morning to make sure that the PA catheter is stable.
Discussed all of the above in detail with nursing at bedside and family at bedside along with the patient.
Chelle Arciniega MD, [facility]
Total critical care time throughout the day: 42mins
Original Note:
Today's Communication / Plan
-
Cont amiodarone gtt at 0.5 mg/min
Reduce IABP to 1:3, orders placed by me, if we can remove IABP today then will restart Eliquis tonight and stop Heparin gtt
Once Eliquis restarted will change Brilinta to Plavix with a 600 mg loading dose
Recheck mixed venous and lactate at noon
CMP ordered for AM
Cont enalapril for afterload reduction
Impression / Plan
-
PCP: Dr. Mukund Welch
Outpatient Aircraft Engine Specialist: Dr. Kem Zavala
Impression:
Admitted with STEMI 02/26/25
Cardiogenic shock
s/p RHC with CI 1.43, SVR 1839 02/27/25
s/p IABP placement 02/27/25
ICM EF 15-20%
Acute HFrEF
CAD
acute anterolateral STEMI with 100% thrombotic occlusion of the mid LAD with 3.0 x 18 mm Medtronic Dangelo EULOGIO, complicated by no reflow treated with rounds of vasodilators 02/26/25
residual 75 to 80% distal RCA stenosis just proximal to the bifurcation of the RPDA and the RPL
Hypertension
Hyperlipidemia
Type 2 diabetes mellitus, [id number]
Coronary artery disease, questionable prior PR per patient
Paroxysmal atrial fibrillation
Afib with RVR starting 02/26/25
Chronic anticoagulation with Eliquis
h/o TIA
Ambulatory dysfunction, using a cane
Prior falls
Former smoker
Lives alone independently
Echo 08/01/22: EF 55-60%
Echo 02/26/25: EF 15-20%, severe global hypokinesis with mid anteroseptal, mid anterior, mid septal, and apical akinesis, stage I diastolic dysfunction, mild MR, mod TR with PAP 54 mmHg
Plan:
-Patient admitted with STEMI 02/26/25 and had LAD PCI complicated by no reflow that was treated with rounds of vasodilator. Patient with residual RCA disease and plan was for staged PCI on 02/27/25, but then started with rapid Afib 02/26/25 PM and
concern for cardiogenic shock so RCA PCI deferred and RHC performed 02/27/25 that confirmed cardiogenic shock.
-On Thursday we placed IABP at 1:2 for a while then 1:3 for a while and lactic acid level followed and was worsened so placed back at 1:1. IABP at 1:1 overnight and mixed venous 76.4 and lactate 0.6 on 03/01/25 AM labs that were reviewed by me.
-Will try to wean IABP again 03/01/25 and follow mixed venous gas and lactate levels, ordered by me. Drop IABP to 1:3 on 03/01/25 AM, orders placed by me.
-Heparin gtt running for IABP and once removed will transition back to outpatient dose of Eliquis 5 mg BID (age 85, Cre 0.8, wt 86.8 kg), likely 02/28/25 PM
-Platelet count 121 on 03/01/25, was 173 on 02/28/25. Follow CBC in AM.
-Once we resume Eliquis will change Brilinta to Plavix and plan on triple therapy with aspirin, Plavix and Eliquis for 1 week and then Plavix and Eliquis thereafter for the next year.
-Cont Lasix 20 mg IV BID
-BP improved overnight with better HR control. Cont enalapril 2.5 mg BID. Patient had been on losartan 25 mg daily prior to admission
-Outpatient dose of Lopressor 50 mg BID is on hold and will not restart right now given cardiogenic shock.
-Patient with known paroxysmal Afib and was in rapid Afib in the ER on admission 02/26/25 very early AM and then spontaneously converted to SR with PACs and then recurred with recurred with rapid Afib starting 02/26/25 PM. Patient remains on
amiodarone gtt at 0.5 mg/min, renewed by me 03/01/25.
-Patient given digoxin 0.5 mg IV once 02/27/25 and 0.25 mg IV x1 02/28/25.
-ECG ordered for 03/01/25 by me.
-Peak Troponin 154. EF newly reduced at 15-20% by echo 02/26/25.
-Cardiogenic shock management as above.
-Will continue to reassess GDMT following acute phase.
-Patient was taking chlorthalidone 25 mg MWF prior to admission and will likely need standing Lasix dose upon d/c
-Eventual outpatient cardiac rehab once improved, cardiac rehab consulted
-LDL 44. Outpatient dose of simvastatin changed to atorvastatin
-HgbA1c 8.6%. Outpatient doses of metformin 1000 mg BID and glipizide 5 mg daily are on hold. Hospitalist following along as well and insulin ordered
HPI: Patient is a 85-year-old female with past medical history of hypertension, hyperlipidemia, type 2 diabetes mellitus, [id number], former smoker coronary artery disease with a prior silent PR per patient, persistent atrial fibrillation
on chronic Eliquis and beta-danny, prior TIA, some ambulatory dysfunction using a cane with prior falls however none recently who presents from home brought in by EMS after having sudden onset substernal chest discomfort around 930 this evening
while she was at rest watching TV associated with shortness of breath and generalized fatigue. She went to bed on without any difficulties and had no other complaints throughout the day yesterday. She ate her dinner without any
abnormalities. She was called in as a prehospital ST elevation PR with EKG showing significant anterolateral ST elevations concerning for a anterolateral ST elevation PR for which heart catheterization lab was activated. In the emergency room she
continued to have 6-8 out of 10 chest discomfort and she received 325 mg of aspirin, 180 mg of Brilinta, 4000 units of unfractionated heparin. Last dose of Eliquis was on evening of February 25, 2025. She denies any allergies to contrast dye. After
detailed informed consent was obtained she was emergently brought up to the heart catheterization lab. She definitely saw her customer engagement representative earlier this week on Thursday with no medication changes and she was otherwise doing well so no other changes
were made. No recent stress test per patient.
Progress Note - Aircraft Engine Specialist
Subjective
Date of Service: March 01, 2025
Low back pain, no chest pain
Objective
Labs:
03/01/25 05:59
03/01/25 05:59
Labs
Hgb 12.6 g/dL (12.0-16.0) 03/01/25 05:59
Hct 37.0 % (37.0-47.0) 03/01/25 05:59
Plt Count 121 10^3/uL (130-400) L D 03/01/25 05:59
PT 17.5 Sec (11.4-14.6) H 02/26/25 00:37
INR 1.41 02/26/25 00:37
APTT 84.4 Sec (23.4-35.0) H 03/01/25 05:59
Sodium 135 mmol/L (135-145) 03/01/25 05:59
Potassium 3.7 mmol/L (3.5-5.1) 03/01/25 05:59
BUN 26 mg/dl (7-17) H 03/01/25 05:59
Creatinine 0.6 mg/dL (0.6-1.0) 03/01/25 05:59
Glucose 134 mg/dl (70-99) H 03/01/25 05:59
Troponins
02/26/25 02/26/25
07:13 14:32
Troponin I 154.000 H* D 103.000 H* D
Vital Signs and I&O:
Vital Signs
Temp Pulse Resp BP Pulse Ox
98.4 F 105 16 144/61 100
03/01/25 07:00 03/01/25 07:20 03/01/25 07:20 03/01/25 07:00 03/01/25 07:20
Vital Signs
Temp Pulse Resp BP Pulse Ox
98.4 F 105 16 144/61 100
03/01/25 07:00 03/01/25 07:20 03/01/25 07:20 03/01/25 07:00 03/01/25 07:20
Intake & Output
02/27/25 02/28/25 03/01/25 03/02/25
06:59 06:59 06:59 06:59
Intake Total 642.2 / 695.5 1724.0 / 1760.7 36.7 / 36.7
Output Total 675 / 675 1785 / 1835 50 / 50
Balance -32.8 / 20.5 -61.0 / -74.3 -13.3 / -13.3
Physical Exam
Physical Exam
GEN: NAD. AAOx3
HEENT: EOMI, MMM
LUNGS: 2 L NC. No audible wheeze
CV: Afib on tele. No murmur
ABD: ND
EXT: No edema B/L LE.
NEURO: Gross non-focal
SKIN: No rash
--- NOTE | 2025-03-01 07:53 | PN.DE.MGMTRT ---
Insulin Management
- -
03/01/2025: Diabetes Management Follow up
85 year old female admitted with STEMI on 02/26/25. PMH: HTN, HLD, PAF on AC, GERD, MVP, h/o hemorrhoids and T2DM. Pt presented to the ED with substernal chest pain due to an Acute STEMI and underlying CAD with prior [place] (silent). Pt underwent
successful PCI to her mid LAD with 100% occlusion with EULOGIO
Pt was taking [id number] mg BID and Glipizide 5mg daily prior to admission. She routinely follows up with Dr. Zavala her PCP for diabetes care. A1C 8.6%, Cr 0.6, eGFR >60.
Pt awake, alert, oriented, resting up in bed, offers no complaints, grand-dtr Carmen at bedside.
s/p RHC, noted for Cardiogenic shock, ICM EF 15-20% and Acute HFrEF s/p IABP placement 02/27/25
02/28 Glucose remained stable and in range, premeal 154 to 201, FBG 134 V, 139 POC this AM. Cont Lantus [address] units [address] AM
[address] Jose has increased her NovoLog dose to 6 units with high corrective scale. Will change to low corrective with meals given increase in AC dose.
Goal is for optimal glucose control without hypoglycemia in this advanced age pt of 85 years.
Pt has a working glucose monitor at home with enough supplies.
Diabetes History
- -
Type of Diabetes: 2 requiring insulin
Pre-Admission Diabetes Regimen
03/01/25
05:59
Creatinine 0.6
Lab Results
Hemoglobin A1c 8.6 % (4.0-5.6) H 02/26/25 02:42
Insulin Pump Settings
IP Diabetes Regimen
02/28/25 02/28/25 02/28/25
09: 13:46 17:32
Glucose
POC Glucose 201 H 162 H 154 H
03/01/25
05:59
Glucose 134 H
POC Glucose
Meal type: Breakfast
Amount consumed: 75%
Patient Education
--- NOTE | 2025-03-01 08:00 | PTCARENOTE ---
pt received from previous RN, oriented, bedrest. A-fib on the monitor, HR 90-100s. Amiodarone gtt running as ordered. SBP via noninvasive cuff 130-140s. PAP 20s-30s/10s, CVP~6-8. CI 1.95, Dr. Arciniega aware. RFA IABP 1:1, max augmentation. palpable
pulses. pt on 2LNC, 99-100% POX. lungs clear. pt abdomen s/n, denies n/v. Hernandez in place, clear yellow urine. R wrist c/d/i, ecchymotic. RFA site intact. RIJ Cordis/swan maintained. R femoral Sulema dampened, Dr. Arciniega aware. PIV x2. heparin gtt
running as ordered. ANNY Landaverde aware of Mg and K result on am labs. see worklist for VS, I&O and assessment.
--- NOTE | 2025-03-01 08:13 | W.PN.HOSP.TC ---
Today's Communication/Plan
-
see plan
Assessment / Plan
Assessment / Plan
Gen: NAD, AAOx3.
Eyes: EOMI, PERRLA, no scleral icterus.
Neck: supple.
CV: remains irreg/irreg, +S1/S2, no m/r/g.
Resp: remains CTAB anteriorly, no rales, wheezes, or rhonchi.
Abd: remains +BS, soft, NT, ND
Skin: No rashes. No LE edema
Neuro: CN 2-12 intact, non-focal.
Psych: Normal mood and affect.
Cardiac cath on admission:
1. Successful percutaneous coronary artery intervention of an acute hazy, heavily thrombotic mid LAD 100% occlusion with KAVITHA 0 flow with one 3.0 x 18 mm Medtronic Magdalena drug-eluting stent, postdilated using IVUS guidance with a 3.25 x 15 mm NC
balloon at 18 juanita with an excellent angiographic result, complicated by mid to distal LAD no reflow requiring multiple rounds of various vasodilators.
2. Significantly elevated LVEDP at 30 mmHg.
Cath 02/27/25:
1. Successful placement of a 50 cc intra-aortic balloon pump via right common femoral artery.
2. Successful placement of a [place]-Shaina catheter via right internal jugular vein.
Echo: Normal left ventricular chamber size. EF 15-20% visually.
Severe global hypokinesis with mid anteroseptal, mid anterior, mid septal, and
apical akinesis. Mild septal hypertrophy ( 1.1 cm). Stage I diastolic
dysfunction suggestive of abnormal relaxation.
Posterior mitral annular calcification. Mitral valve opens normally. Mild
mitral regurgitation.
Structurally normal tricuspid valve. Tricuspid valve opens normally. Moderate
tricuspid regurgitation. Estimated pulmonary artery pressure of 54 mmHg.
Assuming a right atrial pressure of 15 mmHg.
Pleural effusion present.
Since echo 08/01/2022, ejection fraction has decreased from 60% to 15-20% with
regional wall motion abnormalities as noted. There is now moderate TR with
moderate pulm hypertension.
Acute STEMI:
-Trop peaked at 154
-underlying CAD with prior [place] (silent)
-s/p cath on admission with mid LAD 100% occlusion with EULOGIO placement
-echo above
-Intra-aortic balloon pump via R common femoral artery and R IJ swan-Shaina placed on 02/27/25 (cardiogenic shock due to acute NSTEMI)
-cont ASA/Brilinta/BB/statin
-cont heparin gtt
-discussed with cardiology
Acute HFrEF:
-due to NSTEMI
-cont IV Lasix
-cont ACEi
-no BB with hypotension
DM2:
-home Metformin/Januvia/Glipizide on hold
-a1c 8.6%
-cont Lantus/premeal aspart
-high resistance SSI/accuchecks/diabetic diet
-diabetes [employer] PRODUCTION MANAGER following
Persistent atrial fibrillation:
-O/N 02/26/25-02/27/25 with RVR
-cont Amio gtt with complete transition to PO Amio possibly tomorrow (attempting to remove balloon pump first)
Other problems:
Hypokalemia, resolved
Hypomagnesemia, resolved
Essential HTN: no antihypertensives (aside from very low dose ACEi) at this time of hypertension
HLD: cont statin
Former smoker
Prior TIA: cont statin/ASA
FULL/Heparin
Total critical care time spent = 32 min
Anticipated Discharge: > 48 hours
Subjective/Interval History
-
Date of Service: March 01, 2025
Reports pleuritic CP. Denies SOB.
Objective Data
-
Labs:
Laboratory Results
03/01/25
05:59
WBC 11.1 H
Hgb 12.6
Hct 37.0
Plt Count 121 L D
APTT 84.4 H
Sodium 135
Potassium 3.7
Chloride 102
Carbon Dioxide 30
BUN 26 H
Creatinine 0.6
Glucose 134 H
Calcium 8.3 L
Total Bilirubin 1.0
AST 78 H
ALT 37 H
Alkaline Phosphatase 60
Vital Signs:
Vital Signs
Temp Pulse Resp BP Pulse Ox
98.4 F 105 16 144/61 100
03/01/25 07:00 03/01/25 07:20 03/01/25 07:20 03/01/25 07:00 03/01/25 07:20
I&O
02/28/25 03/01/25 03/02/25
06:59 06:59 06:59
Intake Total 642.2 / 695.5 1724.0 / 1760.7 36.7 / 36.7
Output Total 675 / 675 1785 / 1835 50 / 50
Balance -32.8 / 20.5 -61.0 / -74.3 -13.3 / -13.3
[2025-03-01 08:28] LABS: Glucose - Point of Care 139 mg/dl (70-99)
[2025-03-01] MEDS: BRILINTA 90 MG PO ×2 (08:29→19:51)
[2025-03-01] MEDS: PACERONE 200 MG PO (08:30)
[2025-03-01] MEDS: LANTUS 0.3 UNITS SC (08:30)
[2025-03-01] MEDS: VASOTEC 2.5 MG PO ×2 (08:30→11:33)
[2025-03-01] MEDS: LEXAPRO 10 MG PO (08:30)
[2025-03-01] MEDS: LIDOCAINE 4% PATCH 1 PATCH TOPICAL (08:30)
[2025-03-01] MEDS: LOW STRENGTH ASPIRIN 81 MG PO (08:30)
[2025-03-01] MEDS: NOVOLOG FLEXPEN SC (08:37)
[2025-03-01] MEDS: LASIX IV (09:00)
--- NOTE | 2025-03-01 09:10 | PTCARENOTE ---
pt placed to 1:3 on IABP as ordered @~0900, no c/o CP.
[2025-03-01] MEDS: NOVOLOG FLEXPEN-HIGH RESISTANCE 1 UNITS SC (09:16)
[2025-03-01] MEDS: MAGNESIUM OXIDE 500 MG PO (09:25)
[2025-03-01] MEDS: KCL 40 MEQ PO (09:25)
--- NOTE | 2025-03-01 10:37 | ECGCV ---
<Saima MCCORMICK> notified of ECG critical value identified by electronic interpretation on ECG completed on <03/01/25>, at <1035>.
[2025-03-01 10:42] LABS: Mixed Venous O2 Saturation 72.1 %
[2025-03-01 10:44] LABS: Lactic Acid 0.6 mmol/L (0.7-2.0)
--- NOTE | 2025-03-01 11:16 | W.PN.UPDATE ---
Addendum entered and electronically signed by Saima Mccallum PA-C 03/01/25 12:18:
Patient has received a total of 3.85 grams amiodarone PO and IV this admission
Original Note:
Update Note
Progress Note Update
Back in to see patient and updated granddaughter at bedside. IABP at 1:3 and explained plans for another attempt at weaning today including rechecking mixed venous and lactate levels and following hemodynamics. ECG ordered and then reviewed by me
this morning and overall stable and remains in SR. Will give additional enalapril 2.5 mg now for a total of 5 mg this morning. Status reviewed with patient's RN as well. Critical care time 32 min.
[2025-03-01] MEDS: HEPARIN 25000 UNITS/250 ML IV (11:33)
--- NOTE | 2025-03-01 11:37 | PTCARENOTE ---
ANNY Mccurdyy aware of MVO2 and lactic results. ANNY and Dr. Arciniega aware of EKG result. family at bedside visiting.
[2025-03-01] MEDS: NOVOLOG FLEXPEN-HIGH RESISTANCE SC (12:14)
[2025-03-01 12:55] LABS: Glucose - Point of Care 138 mg/dl (70-99)
[2025-03-01] MEDS: NOVOLOG FLEXPEN 6 UNITS SC ×2 (12:55→17:18)
--- NOTE | 2025-03-01 12:55 | CM ---
CM following for DC planning needs.
Reviewed initial assessment.
Pt. comes from 2 story private home alone. She is functionally indep. at baseline w/ ADLs, mobility without the use of any AD but uses a SPC in the community PRN.
DC plan uncertain at this time. Will follow closely.
[2025-03-01 13:48] LABS: ACT-LR - POC 255 Seconds (116-155)
[2025-03-01] MEDS: NOVOLOG FLEXPEN-LOW RESISTANCE SC (13:52)
--- NOTE | 2025-03-01 13:52 | PTCARENOTE ---
IABP placed back to 1:1 and heparin gtt placed on hold @1210 per orders.
@1345-ACT 255- Dr. Arciniega and ANNY Mccallum aware.
[2025-03-01 15:01] LABS: ACT-LR - POC 141 Seconds (116-155)
[2025-03-01] MEDS: LASIX 20 MG IV (15:10)
--- NOTE | 2025-03-01 15:14 | W.PN.CARD.SR ---
Sheath/IABP Sheath Removal
IABP Sheath Removal
Right Arterial Femoral:
IABP sheath removed by:: Physician psychiatric assistant
Name of associate removing IABP sheath: Odalys Ortiz PA-C
Time of IABP sheath removal: 15:08
Method of Hemostasis Post IABP Sheath Removal: Manual Pressure
Comment: asked by Dr. Arciniega to remove IABP--ACT 141. I held manual pressure for 5 minutes after balloon pull with no hematoma/bleeding. Cath team to continue manual pressure until hemostasis achieved per directions from attending.
--- NOTE | 2025-03-01 15:23 | PTCARENOTE ---
pt VSS, Dr. Arciniega aware of ACT 141. ANNY Ortiz at bedside, IABP dc'd @1508 by ANNY. MP held by ANNY and CCL RNs.
[2025-03-01 15:54] LABS: LDH 794 U/L (120-246)
[2025-03-01] MEDS: ULTRAM 25 MG PO (15:54)
[2025-03-01 16:45] LABS: Mixed Venous O2 Saturation 72.6 %
[2025-03-01 17:07] LABS: Lactic Acid 0.8 mmol/L (0.7-2.0)
[2025-03-01] MEDS: ALDACTONE 12.5 MG PO (17:17)
[2025-03-01] MEDS: LIPITOR 40 MG PO (17:18)
[2025-03-01] MEDS: NOVOLOG FLEXPEN-LOW RESISTANCE 1 UNITS SC (17:23)
[2025-03-01 17:26] LABS: Glucose - Point of Care 178 mg/dl (70-99)
[2025-03-01] MEDS: VASOTEC 5 MG PO (19:50)
[2025-03-01] MEDS: PACERONE 400 MG PO (19:51)
--- NOTE | 2025-03-01 20:00 | PTCARENOTE ---
Resumed care of pt laying in bed AAOx3. HR in the 90's to low 100's in Afib on the monitor. HR irreg. POX 98% on 2 LO2 NC. Lungs dec @ bases. + bowel, round abd. Right groin site C/D/I. Palpable peripheral pulses present. Hernandez cath in place
draining clear yellow urine. Right IJ cordis/ [place] in place. Left hand Int capped. Left wrist int capped. Right wrist radial site ecchymosis noted. Pt resting comfortably. Call meléndez in reach. Will continue to monitor.
[2025-03-01 21:51] LABS: Glucose - Point of Care 134 mg/dl (70-99)
[2025-03-01 22:05] LABS: Hematocrit 35.6 % (37.0-47.0); Mean Corp Hgb Conc. 33.7 g/dL (33.0-37.0); Mean Corpuscular Hgb 31.3 pg (27.0-31.0); Mean Corpuscular Volume 92.7 fL (81.0-99.0); Mean Platelet Volume 10.6 fL (7.4-10.4); Platelet Count 152 10^3/uL (130-400); Red Blood Cell Count 3.84 10^6/uL (4.20-5.40); Red Cell Dist. Width 12.8 % (11.5-14.5); White Blood Cell Count 11.4 10^3/uL (4.8-10.8)
[2025-03-01 22:10] LABS: Lactic Acid 0.9 mmol/L (0.7-2.0)
[2025-03-01 22:11] LABS: APTT 32.2 Sec (23.4-35.0)
[2025-03-01 22:12] LABS: ALT (SGPT) 31 U/L (0-35); AST (SGOT) 54 U/L (14-36); Albumin 2.9 g/dl (3.5-5.0); Alkaline Phosphatase 68 U/L (38-126); Blood Urea Nitrogen 21 mg/dl (7-17); Calcium 8.5 mg/dl (8.4-10.2); Carbon Dioxide 32 mmol/L (22-30); Chloride 101 mmol/L (98-107); Estimated Creatinine Clearance 68 ml/min; Glucose 118 mg/dl (70-99); Potassium 4.5 mmol/L (3.5-5.1); Sodium 135 mmol/L (135-145); Total Bilirubin 0.9 mg/dl (0.2-1.3); Total Protein 5.3 g/dl (6.3-8.2); eGFR > 60.00
[2025-03-02] VITALS (25 sets, daily range): BP systolic 102–131; BP diastolic 52–99; PULSE 117–124; BMI 30.1
[2025-03-02 04:12] LABS: Mixed Venous O2 Saturation 68.9 %
[2025-03-02 04:18] LABS: Hematocrit 34.4 % (37.0-47.0); Hemoglobin 11.4 g/dL (12.0-16.0); Mean Corp Hgb Conc. 33.1 g/dL (33.0-37.0); Mean Corpuscular Hgb 31.2 pg (27.0-31.0); Mean Corpuscular Volume 94.2 fL (81.0-99.0); Mean Platelet Volume 10.6 fL (7.4-10.4); Platelet Count 140 10^3/uL (130-400); Red Blood Cell Count 3.65 10^6/uL (4.20-5.40); Red Cell Dist. Width 12.9 % (11.5-14.5); White Blood Cell Count 10.8 10^3/uL (4.8-10.8)
[2025-03-02 04:34] LABS: APTT 71.3 Sec (23.4-35.0)
[2025-03-02 05:26] LABS: ALT (SGPT) 28 U/L (0-35); AST (SGOT) 49 U/L (14-36); Albumin 2.7 g/dl (3.5-5.0); Alkaline Phosphatase 60 U/L (38-126); Blood Urea Nitrogen 21 mg/dl (7-17); Calcium 8.3 mg/dl (8.4-10.2); Carbon Dioxide 31 mmol/L (22-30); Chloride 103 mmol/L (98-107); Estimated Creatinine Clearance 79 ml/min; Glucose 144 mg/dl (70-99); Potassium 4.6 mmol/L (3.5-5.1); Sodium 137 mmol/L (135-145); Total Bilirubin 0.8 mg/dl (0.2-1.3); Total Protein 5.1 g/dl (6.3-8.2); eGFR > 60.00
--- NOTE | 2025-03-02 05:51 | PTCARENOTE ---
Pt slept well overnight. No issues to report. Vital signs remain stable. HR 90's to low 100's in Afib on the monitor. POX 98-100% on 2LO2 NC. CHG bath provided. Pt OOB to chair this am, pt tolerated well. Right IJ cordis/ swan in place. Hernandez cath
draining clear yellow urine. Right groin site C/D/I. Right radial ecchymosis as noted. Heparin gtt infusing via left wrist int as ordered per protocol. Pt denies any complaints at this time. Pt resting comfortably in chair. Call meléndez in reach. Will
continue to monitor.
--- NOTE | 2025-03-02 07:34 | W.PN.CARDCBS ---
Addendum entered and electronically signed by Chelle Arciniega MD 03/02/25 14:55:
I saw and examined the patient.
The [employer] Director's note was reviewed and I agree with the note.
Comment: IABP was weaned off and came out yesterday with no issues at the right groin access site overnight. Right IJ line is still in place with [place]a catheter. Patient overall tells me that she feels significantly better with no residual
chest discomfort or shortness of breath.
Vital signs and lab work reviewed. On exam patient is resting in bed, no acute distress, irregularly irregular heart rhythm, normal S1 and S2, no murmurs, rubs or gallops, right IJ [place]a catheter is in place. Right common femoral site with
dressing in place without evidence of hematoma or bruit., abdomen is soft, nontender, nondistended with active bowel sounds, warm extremities without significant edema with good distal pulses.
Recommendations
1. Given her cardiac index by 1 is about 1.7 this morning with a SVR of about 1800, we will increase her enalapril to 10 mg twice daily and increase her Aldactone to 25 mg daily with hopes of reducing afterload and improving cardiac output..
2. Her [place] was maintained until late morning with repeat lactate normal. Mixed venous sat came back at 63.5. Given otherwise things were stable with her thermodilution cardiac index at 2.2, decision was made to discontinue [place]a catheter and
right IJ access.
3. Blood counts and renal function have been stable.
4. Continue with p.o. amiodarone load with plan to discharge home on 200 mg once daily. Her rates range anywhere from 90 to 120 bpm in atrial fibrillation.
5. For her atrial fibrillation and stroke prevention, her heparin will be discontinued this morning and she will resume her Eliquis.
6. We will continue p.o. load of the amiodarone at 400 mg twice daily and plan to stop IV amiodarone at this point. Her heart rates at rest are staying less than 110 bpm in A-fib.
7. We will hold off on any beta-blockers for now given recent cardiogenic shock. Would aim to initiate beta-danny prior to discharge if otherwise remains stable.
8. Continue with ongoing optimization of goal-directed medical therapy for severe ischemic cardiomyopathy.
9. Plan would be to stabilize this admission and staged RCA PCI as an outpatient once recovered from this event.
10. PT/OT evaluation, ambulation/out of bed in chair as much as possible.
11. Will stop IV Lasix and start p.o. 20 mg daily Lasix.
12. With her Eliquis resumed we will plan to continue triple therapies for 1 week and discontinue aspirin at that time with close monitoring of blood counts.
Discussed all of the above in detail with nursing at bedside and family at bedside along with the patient.
Chelle Arciniega MD, [facility], [facility]
Total time spent: 52 minutes
Original Note:
Today's Communication / Plan
-
Heparin gtt stopped, Eliquis 5 mg BID restarted
Brilinta stopped, will load with Plavix 600 mg tonight and then 75 mg daily thereafter starting tomorrow
Aspirin continued, will give triples for a week and then stop the aspirin
Amiodarone gtt stopped yesterday and has had 4.25 grams IV/PO load so far this admission, cont amiodarone 400 mg PO BID
Lasix 20 mg PO daily starting today
PT/OT
Impression / Plan
-
PCP: Dr. Mukund Welch
Outpatient [facility]shot Superintendent: Dr. Kem Zavala
Impression:
Admitted with STEMI 02/26/25
Cardiogenic shock
s/p RHC with CI 1.43, SVR 1839 02/27/25
s/p IABP placement 02/27/25
ICM EF 15-20%
Acute HFrEF
CAD
acute anterolateral STEMI with 100% thrombotic occlusion of the mid LAD with 3.0 x 18 mm Medtronic Dangelo EULOGIO, complicated by no reflow treated with rounds of vasodilators 02/26/25
residual 75 to 80% distal RCA stenosis just proximal to the bifurcation of the RPDA and the RPL
Hypertension
Hyperlipidemia
Type 2 diabetes mellitus, [id number]
Coronary artery disease, questionable prior DC per patient
Paroxysmal atrial fibrillation
Afib with RVR starting 02/26/25
Chronic anticoagulation with Eliquis
h/o TIA
Ambulatory dysfunction, using a cane
Prior falls
Former smoker
Lives alone independently
Echo 08/01/22: EF 55-60%
Echo 02/26/25: EF 15-20%, severe global hypokinesis with mid anteroseptal, mid anterior, mid septal, and apical akinesis, stage I diastolic dysfunction, mild MR, mod TR with PAP 54 mmHg
Echo 03/02/25: Study pending
Plan:
-Patient admitted with STEMI 02/26/25, Peak Troponin 154, and had LAD PCI complicated by no reflow that was treated with rounds of vasodilator. Patient with residual RCA disease and plan was for staged PCI on 02/27/25, but then started with rapid
Afib 02/26/25 PM and concern for cardiogenic shock so RCA PCI deferred and RHC performed 02/27/25 that confirmed cardiogenic shock and IABP placed. IABP removed 03/01/25.
-Uneventful overnight, no chest pain or SOB. Mixed venous sats stable overnight and lactic acid stable at 0.9 on labs reviewed by me on 03/02/25
-IABP removed without incident 03/01/25
-Heparin gtt restarted late 03/01/25 and Hgb stable at 11.4 on 03/02/25. Will stop Heparin gtt now and restart Eliquis 5 mg BID (age 85, Cre 0.8, wt 86.8 kg) 03/02/25 AM, orders placed by me.
-Platelet count drifted as low as 121 on 03/01/25 AM. LDH 794. Platelet count improved to 140 on 03/02/25 and IABP out.
-Last dose of Brilinta was 03/01/25 PM. Brilinta stopped by me and starting on Plavix due to need for Eliquis. Plan is for Plavix 600 mg x1 03/02/25 PM and then 75 mg daily thereafter.
-Aspirin 81 mg daily continued
-Plan is for triple therapy with aspirin, Plavix and Eliquis for 1 week (until 03/09/25) and then Plavix and Eliquis thereafter for the next year.
-EF had been 55-60% by echo 08/01/22 and down to 15-20% by echo 02/26/25. Recheck echo now that IABP is out and to follow up on evolving ECG changes
-Change Lasix IV to 20 mg PO daily starting 03/02/25
-Enalapril increased to 10 mg BID 03/02/25. Patient had been on losartan 25 mg daily prior to admission
-Outpatient dose of Lopressor 50 mg BID is on hold and will not restart right now given cardiogenic shock.
-Will continue to reassess GDMT following acute phase.
-Patient with known paroxysmal Afib and was in rapid Afib in the ER on admission 02/26/25 very early AM and then spontaneously converted to SR with PACs and then recurred with recurred with rapid Afib starting 02/26/25 PM.
-Amiodarone gtt stopped 03/01/25 and patient continued on amiodarone 400 mg BID. Patient has received 4.25 grams of amiodarone IV/PO as of 03/02/25 AM.
-Patient given digoxin 0.5 mg IV once 02/27/25 and 0.25 mg IV x1 02/28/25.
-ECG reviewed by me 03/02/25 and remains in Afin and QTc 508 ms.
-Patient was taking chlorthalidone 25 mg MWF prior to admission and will likely need standing Lasix dose upon d/c
-Will follow hemodynamics and might d/c right IJ 03/02/25
-PT/OT consulted by me 03/02/25. Eventual outpatient cardiac rehab once improved, cardiac rehab consulted as well
-LDL 44. Outpatient dose of simvastatin changed to atorvastatin
-HgbA1c 8.6%. Outpatient doses of metformin 1000 mg BID and glipizide 5 mg daily are on hold. Hospitalist and DM [employer] following.
HPI: Patient is a 85-year-old female with past medical history of hypertension, hyperlipidemia, type 2 diabetes mellitus, [id number], former smoker coronary artery disease with a prior silent DC per patient, persistent atrial fibrillation
on chronic Eliquis and beta-danny, prior TIA, some ambulatory dysfunction using a cane with prior falls however none recently who presents from home brought in by EMS after having sudden onset substernal chest discomfort around 930 this evening
while she was at rest watching TV associated with shortness of breath and generalized fatigue. She went to bed on without any difficulties and had no other complaints throughout the day yesterday. She ate her dinner without any
abnormalities. She was called in as a prehospital ST elevation DC with EKG showing significant anterolateral ST elevations concerning for a anterolateral ST elevation DC for which heart catheterization lab was activated. In the emergency room she
continued to have 6-8 out of 10 chest discomfort and she received 325 mg of aspirin, 180 mg of Brilinta, 4000 units of unfractionated heparin. Last dose of Eliquis was on evening of February 25, 2025. She denies any allergies to contrast dye. After
detailed informed consent was obtained she was emergently brought up to the heart catheterization lab. She definitely saw her hull drafter earlier this week on Thursday with no medication changes and she was otherwise doing well so no other changes
were made. No recent stress test per patient.
Progress Note - Hotshot Superintendent
Subjective
Date of Service: March 02, 2025
Feels well, denies chest pain
Objective
Labs:
03/02/25 04:06
Labs
Hgb 11.4 g/dL (12.0-16.0) L 03/02/25 04:06
Hct 34.4 % (37.0-47.0) L 03/02/25 04:06
Plt Count 140 10^3/uL (130-400) 03/02/25 04:06
PT 17.5 Sec (11.4-14.6) H 04/27/25 00:37
INR 1.41 02/26/25 00:37
APTT 71.3 Sec (23.4-35.0) H 03/02/25 04:06
Sodium 137 mmol/L (135-145) 03/02/25 04:06
Potassium 4.6 mmol/L (3.5-5.1) 03/02/25 04:06
BUN 21 mg/dl (7-17) H 03/02/25 04:06
Creatinine 0.6 mg/dL (0.6-1.0) 03/02/25 04:06
Glucose 144 mg/dl (70-99) H 03/02/25 04:06
Vital Signs and I&O:
Vital Signs
Temp Pulse Resp BP Pulse Ox
98.8 F 103 18 114/61 100
03/02/25 06:00 03/02/25 06:00 03/02/25 06:00 03/02/25 06:00 03/02/25 06:00
Vital Signs
Temp Pulse Resp BP Pulse Ox
98.8 F 103 18 114/61 100
03/02/25 06:00 03/02/25 06:00 03/02/25 06:00 03/02/25 06:00 03/02/25 06:00
Intake & Output
02/28/25 03/01/25 03/02/25 03/03/25
06:59 06:59 06:59 06:59
Intake Total 642.2 / 695.5 1724.0 / 1760.7 810.3 / 810.3
Output Total 675 / 675 1785 / 1835 1840 / 1840
Balance -32.8 / 20.5 -61.0 / -74.3 -1029.7 / -1029.7
Physical Exam
Physical Exam
GEN: NAD. AAOx3
HEENT: EOMI, MMM
LUNGS: 2 L NC. No audible wheeze
CV: Afib on tele. No murmur
ABD: ND
EXT: Right groin soft and nontender, no hematoma. No edema B/L LE.
NEURO: Gross non-focal
SKIN: No rash
[2025-03-02 08:06] LABS: Glucose - Point of Care 198 mg/dl (70-99)
--- NOTE | 2025-03-02 08:16 | PN.DE.MGMTRT ---
Insulin Management
- -
03/02/2025: Diabetes Management Follow up
85 year old female admitted with STEMI on 02/26/25. PMH: HTN, HLD, PAF on AC, GERD, MVP, h/o hemorrhoids and T2DM. Pt presented to the ED with substernal chest pain due to an Acute STEMI and underlying CAD with prior TX (silent). Pt underwent
successful PCI to her mid LAD with 100% occlusion with EULOGIO
Pt was taking [id number] mg BID and Glipizide 5mg daily prior to admission. She routinely follows up with Dr. Zavala her PCP for diabetes care. A1C 8.6%, Cr 0.6, eGFR >60.
Pt awake, alert, oriented, sitting up in bed, offers no complaints, grand-dtr Carmen at bedside.
s/p RHC, noted for Cardiogenic shock, ICM EF 15-20% and Acute HFrEF s/p IABP placement 02/27/25- removed 03/01/2025
03/01 Glucose remained stable and in range, premeal 138 to 178, FBG 144 V this AM.
Will make no changes to current regimen: Lantus 30 units in AM, NovoLog 6 units AC and low corrective with meals
Will cont to follow and make further insulin dose adjustments if necessary
Pt has a working glucose monitor at home with enough supplies.
Diabetes History
- -
Type of Diabetes: 2 requiring insulin
Pre-Admission Diabetes Regimen
03/01/25 03/01/25 03/02/25
17:00 21:45 04:06
Creatinine Cancelled 0.7 0.6
Lab Results
Hemoglobin A1c 8.6 % (4.0-5.6) H 02/26/25 02:42
Insulin Pump Settings
IP Diabetes Regimen
03/01/25 03/01/25 03/01/25
08:27 12:54 17:00
Glucose Cancelled
POC Glucose 139 H 138 H
03/01/25 03/01/25 03/01/25
17:23 21:45 21:50
Glucose 118 H
POC Glucose 178 H 134 H
03/02/25 03/02/25
04:06 08:04
Glucose 144 H
POC Glucose 198 H
Meal type: Breakfast
Patient Education
--- NOTE | 2025-03-02 09:12 | CARDSERVDEF ---
Echocardiogram with Definity completed after protocol screening completed. Allergies verified.
Patent IV site: __Left wrist site clear___
IV site flushed with 0.9% NaCl pre and post administration.
Diluted bolus method utilized to enhance visualization of ventricular hernandez.
Total volume given: _3___ mL
Patient tolerated all procedures well without complications.
[2025-03-02] MEDS: ALDACTONE 25 MG PO (09:35)
[2025-03-02] MEDS: PACERONE 400 MG PO ×2 (09:35→20:25)
[2025-03-02] MEDS: LOW STRENGTH ASPIRIN 81 MG PO (09:35)
[2025-03-02] MEDS: LANTUS 0.3 UNITS SC (09:35)
[2025-03-02] MEDS: LASIX 20 MG PO (09:35)
[2025-03-02] MEDS: LEXAPRO 10 MG PO (09:36)
[2025-03-02] MEDS: LIDOCAINE 4% PATCH 1 PATCH TOPICAL (09:36)
[2025-03-02] MEDS: ELIQUIS 5 MG PO ×2 (09:36→20:24)
[2025-03-02] MEDS: VASOTEC 10 MG PO ×2 (09:36→20:24)
[2025-03-02] MEDS: NOVOLOG FLEXPEN-LOW RESISTANCE 2 UNITS SC (11:03)
[2025-03-02 11:06] LABS: Mixed Venous O2 Saturation 63.5 %
--- NOTE | 2025-03-02 11:09 | CM ---
CM following for DC planning needs.
Met w/ patient and granddtr. Carmen at bedside.
Reviewed prior level of functioning w/ patient. She reports that she has been getting OOB to chair and feels good but 'cautious'.
Awaiting PT evaluation to ascertain functional status and DC Needs.
Will remain avail. for DC planning needs.
--- NOTE | 2025-03-02 11:12 | PTCARENOTE ---
Pt received from security shift supervisor RN, comfortable, not complaining of any pain. SWAN in place, Q4 C.I. AFib on tele, rate generally in the low 100's, occasionally jumping into the 120's w/out maintaining. Currently 97% on RA, breath sounds are clear.
Thermister skinner in place draining clear, yellow urine. R radial and R femoral cath sites intact. Call meléndez within reach, family at bedside, all questions answered.
[2025-03-02 11:15] LABS: ALT (SGPT) 30 U/L (0-35); AST (SGOT) 39 U/L (14-36); Albumin 3.2 g/dl (3.5-5.0); Alkaline Phosphatase 66 U/L (38-126); Blood Urea Nitrogen 19 mg/dl (7-17); Calcium 8.6 mg/dl (8.4-10.2); Carbon Dioxide 29 mmol/L (22-30); Chloride 101 mmol/L (98-107); Estimated Creatinine Clearance 68 ml/min; Glucose 199 mg/dl (70-99); Potassium 4.6 mmol/L (3.5-5.1); Sodium 135 mmol/L (135-145); Total Bilirubin 1.1 mg/dl (0.2-1.3); eGFR > 60.00
[2025-03-02] MEDS: NOVOLOG FLEXPEN-LOW RESISTANCE SC (11:30)
[2025-03-02] MEDS: NOVOLOG FLEXPEN 6 UNITS SC ×3 (11:30→18:41)
[2025-03-02] MEDS: NOVOLOG FLEXPEN SC (11:30)
[2025-03-02 11:31] LABS: Glucose - Point of Care 203 mg/dl (70-99)
--- NOTE | 2025-03-02 11:50 | W.PN.HOSP.TC ---
Today's Communication/Plan
-
see plan
Assessment / Plan
Assessment / Plan
Gen: NAD, AAOx3.
Eyes: EOMI, PERRLA, no scleral icterus.
Neck: supple.
CV: Tachycardic, irreg/irreg, +S1/S2, no m/r/g.
Resp: CTAB anteriorly, no rales, wheezes, or rhonchi.
Abd: +BS, soft, NT, ND
Skin: No rashes. No LE edema
Neuro: remains CN 2-12 intact, non-focal.
Psych: Normal mood and affect.
Cardiac cath on admission:
1. Successful percutaneous coronary artery intervention of an acute hazy, heavily thrombotic mid LAD 100% occlusion with KAVITHA 0 flow with one 3.0 x 18 mm Medtronic Dangelo drug-eluting stent, postdilated using IVUS guidance with a 3.25 x 15 mm NC
balloon at 18 juanita with an excellent angiographic result, complicated by mid to distal LAD no reflow requiring multiple rounds of various vasodilators.
2. Significantly elevated LVEDP at 30 mmHg.
Cath 02/27/25:
1. Successful placement of a 50 cc intra-aortic balloon pump via right common femoral artery.
2. Successful placement of a [place]Sh[place]a catheter via right internal jugular vein.
Echo: Normal left ventricular chamber size. EF 15-20% visually.
Severe global hypokinesis with mid anteroseptal, mid anterior, mid septal, and
apical akinesis. Mild septal hypertrophy ( 1.1 cm). Stage I diastolic
dysfunction suggestive of abnormal relaxation.
Posterior mitral annular calcification. Mitral valve opens normally. Mild
mitral regurgitation.
Structurally normal tricuspid valve. Tricuspid valve opens normally. Moderate
tricuspid regurgitation. Estimated pulmonary artery pressure of 54 mmHg.
Assuming a right atrial pressure of 15 mmHg.
Pleural effusion present.
Since echo 08/01/2022, ejection fraction has decreased from 60% to 15-20% with
regional wall motion abnormalities as noted. There is now moderate TR with
moderate pulm hypertension.
Acute STEMI:
-Trop peaked at 154
-underlying CAD with prior MO (silent)
-s/p cath on admission with mid LAD 100% occlusion with EULOGIO placement
-echo above
-Intra-aortic balloon pump via R common femoral artery and R IJ [place]-Shaina placed on 02/27/25 (cardiogenic shock due to acute NSTEMI)
-cont ASA/BB/statin
-Brilinta stopped, Plavix started with load
-heparin gtt stopped, Eliquis started
-discussed with cardiology
Acute HFrEF:
-due to NSTEMI
-s/p IV Lasix, start PO Lasix
-cont ACEi/Aldactone
-no BB with hypotension
DM2:
-home Metformin/Januvia/Glipizide on hold
-a1c 8.6%
-cont Lantus/premeal aspart
-high resistance SSI/accuchecks/diabetic diet
-diabetes SAP ARCHITECT following
Persistent atrial fibrillation:
-O/N 02/26/25-02/27/25 with RVR
-was on Amio gtt, now transitioned to PO Amio
Other problems:
Hypokalemia, resolved
Hypomagnesemia, resolved
Essential HTN: cont ACEi/aldactone
HLD: cont statin
Former smoker
Prior TIA: cont statin/ASA/Plavix
FULL/Eliquis
Will s/o. Please call with questions.
Anticipated Discharge: > 48 hours
Subjective/Interval History
-
Date of Service: March 02, 2025
Denies chest pain or shortness of breath.
Objective Data
-
Labs:
Laboratory Results
03/02/25 03/02/25 03/02/25
04:06 10:52 11:00
WBC 10.8
Hgb 11.4 L
Hct 34.4 L
Plt Count 140
APTT 71.3 H Cancelled
Sodium 137 135
Potassium 4.6 4.6
Chloride 103 101
Carbon Dioxide 31 H 29
BUN 21 H 19 H
Creatinine 0.6 0.7
Glucose 144 H 199 H
Calcium 8.3 L 8.6
Total Bilirubin 0.8 1.1
AST 49 H 39 H
ALT 28 30
Alkaline Phosphatase 60 66
Vital Signs:
Vital Signs
Temp Pulse Resp BP Pulse Ox
98.2 F 109 22 125/94 97
03/02/25 08:00 03/02/25 11:04 03/02/25 11:04 03/02/25 11:04 03/02/25 10:01
I&O
03/01/25 03/02/25 03/03/25
06:59 06:59 06:59
Intake Total 1724.0 / 1760.7 810.3 / 831.3 94 / 94
Output Total 1785 / 1835 1840 / 1840 150 / 150
Balance -61.0 / -74.3 -1029.7 / -1008.7 -56 / -56
[2025-03-02] MEDS: NOVOLOG FLEXPEN-LOW RESISTANCE 3 UNITS SC (14:10)
[2025-03-02 14:11] LABS: Glucose - Point of Care 282 mg/dl (70-99)
[2025-03-02] MEDS: LANOXIN 250 MCG IV (15:17)
[2025-03-02] MEDS: LIPITOR 40 MG PO (17:26)
--- NOTE | 2025-03-02 17:57 | PTCARENOTE ---
Pt downgraded to telemetry. R IJ [place] and cordis removed. As the day goes on, HR continued to increase maintaining in the 120's-130's. 250mcgs IV digoxin given. HR now improved, currently back between 100-110's. Pt not complaining of any pain,
walking to BR with one assist. No difficulty voiding s/p skinner removal. Call meléndez within reach. Pt makes needs known.
[2025-03-02] MEDS: NOVOLOG FLEXPEN-LOW RESISTANCE 1 UNITS SC (18:41)
[2025-03-02 18:44] LABS: Glucose - Point of Care 193 mg/dl (70-99)
[2025-03-02] MEDS: PLAVIX 600 MG PO (20:25)
--- NOTE | 2025-03-02 20:30 | PTCARENOTE ---
Patient received from RN @1900. Patient sitting on side of bed eating dinner w/ call meléndez in reach. AOx3. A. Fib w/ bundle branch block. BP 120/70. HR 121. Heart sounds audible. No edema noted. Radial and pedal pulses present bilaterally.
Lungs clear bilaterally. POX 95% RA. Bowel sounds normoactive. Voiding clear yellow urine. Right femoral dressing dry and intact. Right radial dressing dry and intact w/ ecchymosis. RIJ cordis dressing w/ moderate amount of pink drainage.
Left wrist PIV x2 patent and intact.
[2025-03-02 22:10] LABS: Glucose - Point of Care 150 mg/dl (70-99)
--- NOTE | 2025-03-02 22:28 | PTCARENOTE ---
RIJ cordis dressing changed due to moderate saturation.
[2025-03-03] VITALS (13 sets, daily range): BP systolic 97–146; BP diastolic 56–80; PULSE 98–113; O2SAT 99; BMI 30.2
--- NOTE | 2025-03-03 00:15 | PTCARENOTE ---
Patient assessment unchanged. A. Fib w/ BBB. BP 104/68 HR 112 POX 96% RA. Patient using call meléndez appropriately to void.
[2025-03-03 03:00] LABS: Hematocrit 32.3 % (37.0-47.0); Hemoglobin 11.2 g/dL (12.0-16.0); Mean Corp Hgb Conc. 34.7 g/dL (33.0-37.0); Mean Corpuscular Hgb 31.6 pg (27.0-31.0); Mean Corpuscular Volume 91.2 fL (81.0-99.0); Mean Platelet Volume 10.4 fL (7.4-10.4); Platelet Count 155 10^3/uL (130-400); Red Blood Cell Count 3.54 10^6/uL (4.20-5.40); Red Cell Dist. Width 12.8 % (11.5-14.5); White Blood Cell Count 11.1 10^3/uL (4.8-10.8)
[2025-03-03 03:22] LABS: Blood Urea Nitrogen 25 mg/dl (7-17); Calcium 8.8 mg/dl (8.4-10.2); Carbon Dioxide 27 mmol/L (22-30); Chloride 102 mmol/L (98-107); Estimated Creatinine Clearance 68 ml/min; Glucose 162 mg/dl (70-99); Magnesium 1.9 mg/dl (1.6-2.3); Potassium 4.8 mmol/L (3.5-5.1); Sodium 136 mmol/L (135-145); eGFR > 60.00
--- NOTE | 2025-03-03 03:52 | PTCARENOTE ---
Assessment unchanged. A. Fib w/ BBB. BP 111/56 HR 108 POX 97% RA. Patient ambulating and voiding to bathroom. New left wrist IV placed due to patient accidently removing both.
--- NOTE | 2025-03-03 04:17 | PTCARENOTE ---
[facility] Report given to Blanche.
--- NOTE | 2025-03-03 04:25 | PTCARENOTE ---
Pt transferred from rm 2264 to room 2258. Pt AAO x3 VVS, Afib on monitor. Pt denies pain or discomfort. oriented to room. call meléndez in place
[2025-03-03 07:36] LABS: Glucose - Point of Care 197 mg/dl (70-99)
[2025-03-03] MEDS: PACERONE 400 MG PO ×2 (07:45→20:23)
[2025-03-03] MEDS: PLAVIX 75 MG PO (07:45)
[2025-03-03] MEDS: ALDACTONE 25 MG PO (07:45)
[2025-03-03] MEDS: VASOTEC 10 MG PO ×2 (07:46→20:24)
[2025-03-03] MEDS: ELIQUIS 5 MG PO ×2 (07:46→20:24)
[2025-03-03] MEDS: LEXAPRO 10 MG PO (07:46)
[2025-03-03] MEDS: LASIX 20 MG PO (07:47)
[2025-03-03] MEDS: LOW STRENGTH ASPIRIN 81 MG PO (07:47)
[2025-03-03] MEDS: LIDOCAINE 4% PATCH 1 PATCH TOPICAL (07:48)
[2025-03-03] MEDS: LANTUS 0.3 UNITS SC (07:49)
[2025-03-03] MEDS: NOVOLOG FLEXPEN-LOW RESISTANCE 1 UNITS SC (07:49)
[2025-03-03] MEDS: NOVOLOG FLEXPEN 6 UNITS SC (07:50)
--- NOTE | 2025-03-03 08:35 | PN.DE.MGMTRT ---
Addendum entered and electronically signed by FILIPE Saldana 03/03/25 15:04:
Pt is consuming adequate amount >70% at each meal, Cr at baseline 0.7, eGFR >60.
Will start Farxiga 10mg daily, 1st dose NOW. Will STOP AC NovoLog for now. Cont Lantus at increased dose 32 units @ HS.
Resume Glipizide at increased dose of 5mg BID and Metformin at 1000 mg BID, 1st dose of each at dinner.
Pt's monthly co-pay for Jardiance and Farxiga is $47, however, Jardiance is listed as preferred by her insurance carrier. Please start Jardiance at upon discharge home.
Original Note:
Insulin Management
- -
03/03/2025: Diabetes Management Follow up
85 year old female admitted with STEMI on 02/26/25. PMH: HTN, HLD, PAF on AC, GERD, MVP, h/o hemorrhoids and T2DM. Pt presented to the ED with substernal chest pain due to an Acute STEMI and underlying CAD with prior MO (silent). Pt underwent
successful PCI to her mid LAD with 100% occlusion with EULOGIO
Pt was taking [id number] mg BID and Glipizide 5mg daily prior to admission. She routinely follows up with Dr. Zavala her PCP for diabetes care. A1C 8.6%, Cr 0.6, eGFR >60.
Pt awake, alert, oriented, sitting up in bed, offers no complaints, grand-dtr Carmen at bedside.
s/p RHC, noted for Cardiogenic shock, ICM EF 15-20% and Acute HFrEF s/p IABP placement 02/27/25- removed 03/01/2025
Glucose elevated >200, premeal 193 to 282, requiring 1-2 units of additional corrective insulin, 3AM glucose was 162, FBG 197 POC this AM.
Will increase AC NovoLog to 8 units. Cont same dose of Lantus 30 units in AM and low corrective with meals
Will cont to follow and make further insulin dose adjustments if necessary
Pt has a working glucose monitor at home with enough supplies.
Diabetes History
- -
Type of Diabetes: 2 requiring insulin
Pre-Admission Diabetes Regimen
03/02/25 03/03/25
10:52 02:37
Creatinine 0.7 0.7
Lab Results
Hemoglobin A1c 8.6 % (4.0-5.6) H 02/26/25 02:42
Insulin Pump Settings
IP Diabetes Regimen
03/02/25 03/02/25 03/02/25
10:52 11:29 14:09
Glucose 199 H
POC Glucose 203 H 282 H
03/02/25 03/02/25 03/03/25
18:40 22:09 02:37
Glucose 162 H
POC Glucose 193 H 150 H
03/03/25
07:35
Glucose
POC Glucose 197 H
Meal type: Dinner
Amount consumed: 85%
Patient Education
--- NOTE | 2025-03-03 11:16 | PTCARENOTE ---
Pt OOB in room, walked in frye, gracia well. R IJ dsg D+I, R femoral dsg D+I, R radial dsg removed, R wrist ecchymotic. L wrist dsg D+I.
--- NOTE | 2025-03-03 11:40 | CM ---
Addendum entered by Dee Dee Dennis 03/03/25 15:43:
Reviewed co-pay for Jardiance and Farxiga with Mrs. Cueto. She is agreeable to the co-pay. She would like to do the mail order with [facility] to leave a paper script in her chart to use the free one month Jardiance coupon. Placed the one month
free Jardiance coupon in her red discharge folder. The mail order co-pay would be $126.00 for three month supply.
Addendum entered by Dee Dee Dennis 03/03/25 14:56:
Telephone call to [facility], ([phone]) to check on co-pay for Jardiance and Farxiga. Jardiance co-pay is $47.00 a month and Farxiga is also $47.00 a month.
Original Note:
Reviewed chart. Mrs. Cueto was transferred to IVU. Met with Mrs. Cueto to review discharge plans. She states she is feeling well. We reviewed [facility]. She is agreeable to [facility]. she has selected [facility]. Telephone call
to [facility] Intake to make the referral. Sent the referral. Prior to admission she resides alone in a two story home with five steps to enter. She has an elevator in the home that gets her to the second floor. Prior to admission
she was independent with ambulation in the home and uses a single point cane in the community. She has a single point cane and walker at home. She has a prescription plan and uses [facility]. Medical work-up in progress. The discharge plan is to
return home with [facility] when medically stable.
--- NOTE | 2025-03-03 11:42 | W.PN.CARDCBS ---
Addendum entered and electronically signed by Dedeee Lacy DO 03/03/25 17:38:
I saw and examined the patient.
The Geothermal Installer's note was reviewed and I agree with the note.
Comment: Patient was seen and examined with family at bedside. She was sitting out of bed to chair feeling better and denied chest pain or pressure or shortness of breath at rest. No dizziness.
General: No acute distress, AAOX3
Neck: Prior right IJ site intact with dressing
Heart: Irregularly irregular. Positive S1-S2. No S3. No murmur
Lungs: CTA b/l, negative wheezes/rales/rhonchi
Abd: Positive BS, NT/ND, neg rebound/rigidity/guarding
Ext: No edema. Warm distal extremities. Groin sites intact.
Plan:
Admitted 02/26/[address] elevation myocardial infarct with peak troponin 154 complicated by cardiogenic shock and ischemic cardiomyopathy
- Left heart catheterization 02/26/2025 reviewed. Successful percutaneous coronary artery intervention of an acute hazy, heavily thrombotic mid LAD 100% occlusion with KAVITHA 0 flow with one 3.0 x 18 mm Medtronic [place] drug-eluting stent, postdilated
using IVUS guidance with a 3.25 x 15 mm NC balloon at 18 juanita with an excellent angiographic result, complicated by mid to distal LAD no reflow requiring multiple rounds of various vasodilators.
- Residual disease in the left circumflex bifurcation of the left PL branch 6070%, 70 to 80% mid RCA stenosis with 75 to 80% distal RCA stenosis proximal to the bifurcation of the RPDA/RPL for eventual staged intervention. Discussed with
interventional cardiology; no plan for staged intervention this admission and will discuss timing as an outpatient
- Patient had intra-aortic balloon pump placement 02/27/2025 in the right common femoral artery and placement of a [place] catheter in the right IJ for increased right and left filling pressures with reduced cardiac output in the setting of
elevated SVR/cardiogenic shock
- Intra-atrial balloon removed without complication 03/01/2025
- [place] catheter in right IJ cordis discontinued 03/02/2025
- She has done well with titration of goal-directed medical therapy and appears relatively euvolemic and remains chest pain-free
-Continue triple therapy for 1 week until 03/09/2025 with aspirin, Plavix and Eliquis. Then will transition to Plavix and Eliquis for at least 1 year
-Outpatient simvastatin changed to atorvastatin 40 mg daily. LDL 44
-Continue enalapril 10 mg twice daily, spironolactone 25 mg daily
-Transition to Lasix 20 mg daily yesterday
- Will have case management assess because of SGLT2 inhibitor: Start Farxiga 10 mg daily
- Cardiac rehab efforts
- Will follow PT notes; patient may need acute rehab at time of discharge
- Would repeat 2D echocardiogram in 3 months following revascularization and optimization of goal-directed medical therapy to reassess ejection fraction
Paroxysmal atrial fibrillation with rapid atrial fibrillation starting 02/26/2025
- Continue amiodarone 400 mg twice daily
- Follow QTc
- Slow start of carvedilol with up titration if tolerates
- Continue Eliquis anticoagulation
- Could consider MICHEL/cardioversion if patient remains in rapid atrial fibrillation on Tuesday 03/06
Type 2 diabetes mellitus with hemoglobin A1c 8.6%
-Appreciate diabetic nurse practitioner management
-Importance of normoglycemia strongly advised
Will follow with you
l
Original Note:
Today's Communication / Plan
-
Continue PO lasix
Triple therapy x 1 week
Titrate GDMT, very low dose coreg added today, follow closely
Continue enalapril, spironolactone
CM to assess cost of SGLT2 inhibitor
PT/OT evaluations
Impression / Plan
-
PCP: Dr. Mukund Welch
Outpatient [facility]: Dr. Kem Zavala
Impression:
Admitted with STEMI 02/26/25
Cardiogenic shock
s/p RHC with CI 1.43, SVR 1839 02/27/25
s/p IABP placement 02/27/25, removed 03/01/2025
ICM EF 15-20%
Acute HFrEF
CAD
acute anterolateral STEMI with 100% thrombotic occlusion of the mid LAD with 3.0 x 18 mm Medtronic [place] EULOGIO, complicated by no reflow treated with rounds of vasodilators 02/26/25
residual 75 to 80% distal RCA stenosis just proximal to the bifurcation of the RPDA and the RPL
Paroxysmal atrial fibrillation
Afib with RVR starting 02/26/25
Chronic anticoagulation with Eliquis
Hypertension
Hyperlipidemia
Type 2 diabetes mellitus, [id number]
h/o TIA
Ambulatory dysfunction, using a cane
Prior falls
Former smoker
Lives alone independently
Echo 08/01/2022: EF 55-60%
Echo 02/26/2025: EF 15-20%, severe global hypokinesis with mid anteroseptal, mid anterior, mid septal, and apical akinesis, stage I diastolic dysfunction, mild MR, mod TR with PAP 54 mmHg
Echo 03/02/2025: EF 35-40%, mild cLVH, anterior, anteroseptal, and apical hypokinesis, false tendon in the LV apex, PFO present w/ L to R shunt, MAC, prolapse of posterior mitral leaflet present, mild MR, mild TR, estimated PAP 27 mmHg
Plan:
-Admitted w/ STEMI and cardiogenic shock. Trop peaked at 154. Underwent C and had LAD PCI complicated by no reflow that was treated with rounds of vasodilator. Residual disease noted in the RCA w/ plan for eventual staged intervention.
-Cardiogenic shock noted earlier in admission and IABP in place 02/27 to 03/01. Remains hemodynamically stable 03/03.
-Also w/ rapid afib this admission. Now loading w/ amiodarone 400mg BID. Has received 5.45 grams of IV/PO amiodarone as of noon 03/03.
-Also was given digoxin x2 given elevated rates. No plans to continue.
-QTc 508 ms by EKG 03/02. Will repeat in AM.
-Continue triple therapy with aspirin, Plavix, and Eliquis for 1 week (until 03/09/2025) and then Plavix and Eliquis thereafter for the next year.
-Echo initially 02/26 noted EF down to 15-20%. Up to 35-40% by follow up echo 03/02.
-Continue uptitration of medical therapy as able. Currently on enalapril 10mg BID and spironolactone 25mg daily.
-Will cautiously start low-dose coreg 1.5625 mg BID.
-Also asked CM to assess cost of SGLT2 inhibitor.
-Continue PO lasix 20mg daily. Creat stable at 0.7. Weight stable at 192lbs.
-PT/OT evaluation, follow for d/c recommendations
-Eventual outpatient cardiac rehab once improved, cardiac rehab consulted as well
-LDL 44. Outpatient dose of simvastatin changed to atorvastatin
-HgbA1c 8.6%. Outpatient doses of metformin 1000 mg BID and glipizide 5 mg daily are on hold. DM DIGITAL MARKETING CONSULTANT following. As above, looking into cost of SGLT2 inhibitor.
HPI: Patient is a 85-year-old female with past medical history of hypertension, hyperlipidemia, type 2 diabetes mellitus, [id number], former smoker coronary artery disease with a prior silent UT per patient, persistent atrial fibrillation
on chronic Eliquis and beta-danny, prior TIA, some ambulatory dysfunction using a cane with prior falls however none recently who presents from home brought in by EMS after having sudden onset substernal chest discomfort around 930 this evening
while she was at rest watching TV associated with shortness of breath and generalized fatigue. She went to bed on without any difficulties and had no other complaints throughout the day yesterday. She ate her dinner without any
abnormalities. She was called in as a prehospital ST elevation UT with EKG showing significant anterolateral ST elevations concerning for a anterolateral ST elevation UT for which heart catheterization lab was activated. In the emergency room she
continued to have 6-8 out of 10 chest discomfort and she received 325 mg of aspirin, 180 mg of Brilinta, 4000 units of unfractionated heparin. Last dose of Eliquis was on evening of February 25, 2025. She denies any allergies to contrast dye. After
detailed informed consent was obtained she was emergently brought up to the heart catheterization lab. She definitely saw her clinical account liaison earlier this week on Thursday with no medication changes and she was otherwise doing well so no other changes
were made. No recent stress test per patient.
Progress Note - [facility]
Subjective
Date of Service: March 03, 2025
No complaints. Feeling well, walking around the unit without SOB or CP
Objective
Labs:
03/03/25 02:37
03/03/25 02:37
Labs
Hgb 11.2 g/dL (12.0-16.0) L 03/03/25 02:37
Hct 32.3 % (37.0-47.0) L 03/03/25 02:37
Plt Count 155 10^3/uL (130-400) 03/03/25 02:37
PT 17.5 Sec (11.4-14.6) H 02/26/25 00:37
INR 1.41 02/26/25 00:37
APTT Cancelled 03/02/25 11:00
Sodium 136 mmol/L (135-145) 03/03/25 02:37
Potassium 4.8 mmol/L (3.5-5.1) 03/03/25 02:37
BUN 25 mg/dl (7-17) H 03/03/25 02:37
Creatinine 0.7 mg/dL (0.6-1.0) 03/03/25 02:37
Glucose 162 mg/dl (70-99) H 03/03/25 02:37
Vital Signs and I&O:
Vital Signs
Temp Pulse Resp BP Pulse Ox
98.3 F 104 18 120/67 100
03/03/25 08:39 03/03/25 11:30 03/03/25 08:39 03/03/25 10:50 03/03/25 10:50
Vital Signs
Temp Pulse Resp BP Pulse Ox
98.3 F 104 18 120/67 100
03/03/25 08:39 03/03/25 11:30 03/03/25 08:39 03/03/25 10:50 03/03/25 10:50
Intake & Output
03/01/25 03/02/25 03/03/25 03/04/25
06:59 06:59 06:59 06:59
Intake Total 1724.0 / 1760.7 810.3 / 831.3 94 / 94
Output Total 1785 / 1835 1840 / 1840 450 / 450
Balance -61.0 / -74.3 -1029.7 / -1008.7 -356 / -356
Physical Exam
Physical Exam
GEN: No distress, awake, alert, oriented x3
HEENT: supple, anicteric, mmm
LUNGS: CTA b/l, no wheezes/rales
CV: irregularly irregular, S1/S2, no murmur
EXT: No clubbing, cyanosis, or edema
NEURO: Gross non-focal
SKIN: Warm, dry, no rash
[2025-03-03 12:02] LABS: Glucose - Point of Care 210 mg/dl (70-99)
[2025-03-03] MEDS: NOVOLOG FLEXPEN 8 UNITS SC (12:03)
[2025-03-03] MEDS: NOVOLOG FLEXPEN-LOW RESISTANCE 2 UNITS SC (12:03)
[2025-03-03] MEDS: COREG 1.5625 MG PO ×2 (12:11→20:23)
[2025-03-03 15:57] LABS: Glucose - Point of Care 145 mg/dl (70-99)
[2025-03-03] MEDS: FARXIGA 10 MG PO (16:00)
[2025-03-03] MEDS: LIPITOR 40 MG PO (16:00)
[2025-03-03] MEDS: GLUCOPHAGE 1000 MG PO (16:00)
[2025-03-03] MEDS: GLUCOTROL 5 MG PO (16:02)
[2025-03-03] MEDS: NOVOLOG FLEXPEN-LOW RESISTANCE SC (16:03)
[2025-03-03 21:47] LABS: Glucose - Point of Care 98 mg/dl (70-99)
--- NOTE | 2025-03-03 22:50 | PTCARENOTE ---
ax3 afib 85-100- bp wnl afebrile- sites cdi. ambulates to br with walker.
[2025-03-03] MEDS: MELATONIN 5 MG PO (23:13)
[2025-03-04] VITALS (7 sets, daily range): BP systolic 99–138; BP diastolic 61–84; BMI 30.1
--- NOTE | 2025-03-04 07:10 | W.PN.CARDCBS ---
Addendum entered and electronically signed by Sherly Haas MD 03/04/25 10:59:
I saw and examined the patient.
The Deposit Refund Clerk's note was reviewed and I agree with the note.
Comment:
Exam stable except for increased heart rates in atrial fibrillation (rhythm irregular) noted clinically and independently reviewed by me on telemetry monitoring. Decreased breath sounds at the bases likely secondary to atelectasis. No chest pain
noted. Admitted critically ill with cardiogenic shock. Now ambulating and increasing activity. Coronary disease status post LAD stent in the setting of acute anterolateral ST UT. Residual coronary disease also noted. Heart failure with reduced
ejection fraction post UT also noted. Telemetry without significant ventricular arrhythmia noted and reviewed by me. Prior EKG reviewed by me with increased QT interval.
Labs independently reviewed by me today with mild but improved anemia. Stable renal function is noted.
Plan at this time:
Continue guideline directed medical treatment post cardiogenic shock and myocardial infarction.
As an outpatient reassess residual coronary disease.
Triple therapy until 03/09/2025 then de-escalate to Eliquis/Plavix.
Aggressive risk factor modification including lipid-lowering and diabetes control.
Continue guideline directed medical therapy for heart failure with reduced ejection fraction. Uptitrate as tolerates.
Will try to increase carvedilol to 3.125 mg twice daily.
Eventually if blood pressure will tolerate consider switch to Entresto from lisinopril.
Continue current dose of diuretic. Volume status appears stable.
She continues in atrial fibrillation. Amiodarone load is underway. Prior QT interval mildly increased.
Reassess EKG tomorrow
Consider transesophageal echocardiogram and cardioversion on Thursday.
Increase activity as tolerates. Incentive spirometer ordered.
Original Note:
Today's Communication / Plan
-
Continue PO lasix 20mg daily
Continue coreg, spironolactone, enalapril, and farxiga
Continue Eliquis, plavix, aspirin until 03/09
Consider MICHEL/CV Thursday if remains in rapid afib
Impression / Plan
-
PCP: Dr. Mukund Welch
Outpatient [facility]: Dr. Kem Zavala
Impression:
Admitted with STEMI 02/26/25
Cardiogenic shock
s/p RHC with CI 1.43, SVR 1839 02/27/25
s/p IABP placement 02/27/25, removed 03/01/2025
ICM EF 15-20%
Acute HFrEF
CAD
acute anterolateral STEMI with 100% thrombotic occlusion of the mid LAD with 3.0 x 18 mm Medtronic [place] EULOGIO, complicated by no reflow treated with rounds of vasodilators 02/26/25
residual 75 to 80% distal RCA stenosis just proximal to the bifurcation of the RPDA and the RPL
Paroxysmal atrial fibrillation
Afib with RVR starting 02/26/25
Chronic anticoagulation with Eliquis
Hypertension
Hyperlipidemia
Type 2 diabetes mellitus, [id number]
h/o TIA
Ambulatory dysfunction, using a cane
Prior falls
Former smoker
Lives alone independently
Echo 08/01/2022: EF 55-60%
Echo 02/26/2025: EF 15-20%, severe global hypokinesis with mid anteroseptal, mid anterior, mid septal, and apical akinesis, stage I diastolic dysfunction, mild MR, mod TR with PAP 54 mmHg
Echo 03/02/2025: EF 35-40%, mild cLVH, anterior, anteroseptal, and apical hypokinesis, false tendon in the LV apex, PFO present w/ L to R shunt, MAC, prolapse of posterior mitral leaflet present, mild MR, mild TR, estimated PAP 27 mmHg
Plan:
-Admitted w/ STEMI and cardiogenic shock. Trop peaked at 154. Underwent LHC and had LAD PCI complicated by no reflow that was treated with rounds of vasodilator. Residual disease noted in the RCA w/ plan for eventual staged intervention.
-Cardiogenic shock noted earlier in admission and IABP in place 02/27 to 03/01. Remains hemodynamically stable 03/04.
-Also w/ rapid afib this admission. Now loading w/ amiodarone 400mg BID. Has received 5.85 grams of IV/PO amiodarone as of early AM 03/04.
-Also was given digoxin x2 given elevated rates. No plans to continue.
-QTc 508 ms by EKG 03/02. Will repeat in AM.
-Rates remain somewhat elevated at times. Would consider for MICHEL/CV Thursday, 03/06 if remains in afib w/ elevated rates.
-Continue triple therapy with aspirin, Plavix, and Eliquis for 1 week (until 03/09/2025) and then Plavix and Eliquis thereafter for the next year.
-Echo initially 02/26 noted EF down to 15-20%. Up to 35-40% by follow up echo 03/02.
-Continue uptitration of medical therapy as able.
-Continue enalapril 10mg BID, spironolactone 25mg daily. Coreg 1.5625 BID and Farxiga added 03/03.
-Continue PO lasix 20mg daily. Creat stable at 0.7 03/03, AM labs pending 03/04. Weight stable at 192lbs.
-PT/OT evaluation, follow for d/c recommendations
-Eventual outpatient cardiac rehab once improved, cardiac rehab consulted as well
-LDL 44. Outpatient dose of simvastatin changed to atorvastatin
-HgbA1c 8.6%. DM AUTO TRANSMISSION TECHNICIAN following.
HPI: Patient is a 85-year-old female with past medical history of hypertension, hyperlipidemia, type 2 diabetes mellitus, [id number], former smoker coronary artery disease with a prior silent UT per patient, persistent atrial fibrillation
on chronic Eliquis and beta-danny, prior TIA, some ambulatory dysfunction using a cane with prior falls however none recently who presents from home brought in by EMS after having sudden onset substernal chest discomfort around 930 this evening
while she was at rest watching TV associated with shortness of breath and generalized fatigue. She went to bed on without any difficulties and had no other complaints throughout the day yesterday. She ate her dinner without any
abnormalities. She was called in as a prehospital ST elevation UT with EKG showing significant anterolateral ST elevations concerning for a anterolateral ST elevation UT for which heart catheterization lab was activated. In the emergency room she
continued to have 6-8 out of 10 chest discomfort and she received 325 mg of aspirin, 180 mg of Brilinta, 4000 units of unfractionated heparin. Last dose of Eliquis was on evening of February 25, 2025. She denies any allergies to contrast dye. After
detailed informed consent was obtained she was emergently brought up to the heart catheterization lab. She definitely saw her mobile development manager earlier this week on Thursday with no medication changes and she was otherwise doing well so no other changes
were made. No recent stress test per patient.
Progress Note - [facility]
Subjective
Date of Service: March 04, 2025
Feeling well this AM. No complaints.
Objective
Labs:
Labs
Hgb 11.2 g/dL (12.0-16.0) L 03/03/25 02:37
Hct 32.3 % (37.0-47.0) L 03/03/25 02:37
Plt Count 155 10^3/uL (130-400) 03/03/25 02:37
PT 17.5 Sec (11.4-14.6) H 02/26/25 00:37
INR 1.41 02/26/25 00:37
APTT Cancelled 03/02/25 11:00
Sodium 136 mmol/L (135-145) 03/03/25 02:37
Potassium 4.8 mmol/L (3.5-5.1) 03/03/25 02:37
BUN 25 mg/dl (7-17) H 03/03/25 02:37
Creatinine 0.7 mg/dL (0.6-1.0) 03/03/25 02:37
Glucose 162 mg/dl (70-99) H 03/03/25 02:37
Vital Signs and I&O:
Vital Signs
Temp Pulse Resp BP Pulse Ox
98.1 F 104 18 126/81 96
03/04/25 03:12 03/04/25 03:04 03/03/25 22:48 03/04/25 03:04 03/03/25 22:48
Vital Signs
Temp Pulse Resp BP Pulse Ox
98.1 F 104 18 126/81 96
03/04/25 03:12 03/04/25 03:04 03/03/25 22:48 03/04/25 03:04 03/03/25 22:48
Intake & Output
03/02/25 03/03/25 03/04/25 03/05/25
06:59 06:59 06:59 06:59
Intake Total 810.3 / 831.3 94 / 94
Output Total 1840 / 1840 450 / 450
Balance -1029.7 / -1008.7 -356 / -356
Physical Exam
Physical Exam
GEN: No distress, awake, alert, oriented x3, sitting up in bed
HEENT: supple, anicteric, mmm
LUNGS: CTA b/l, no wheezes/rales
CV: irregularly irregular, S1/S2, no murmur
EXT: No clubbing, cyanosis, or edema
NEURO: Gross non-focal
SKIN: Warm, dry, no rash
[2025-03-04 08:14] LABS: Glucose - Point of Care 113 mg/dl (70-99)
[2025-03-04] MEDS: NOVOLOG FLEXPEN-LOW RESISTANCE SC ×2 (09:00→17:22)
[2025-03-04] MEDS: PACERONE 400 MG PO ×2 (09:01→20:05)
[2025-03-04] MEDS: FARXIGA 10 MG PO (09:01)
[2025-03-04] MEDS: COREG 1.5625 MG PO (09:02)
[2025-03-04] MEDS: PLAVIX 75 MG PO (09:03)
[2025-03-04] MEDS: GLUCOTROL 5 MG PO ×2 (09:03→17:22)
[2025-03-04] MEDS: VASOTEC 10 MG PO ×2 (09:03→20:05)
[2025-03-04] MEDS: ELIQUIS 5 MG PO ×2 (09:03→20:05)
[2025-03-04] MEDS: GLUCOPHAGE 1000 MG PO ×2 (09:03→17:22)
[2025-03-04] MEDS: LASIX 20 MG PO (09:03)
[2025-03-04] MEDS: ALDACTONE 25 MG PO (09:04)
[2025-03-04] MEDS: LOW STRENGTH ASPIRIN 81 MG PO (09:04)
[2025-03-04] MEDS: LIDOCAINE 4% PATCH 1 PATCH TOPICAL (09:04)
[2025-03-04] MEDS: LEXAPRO 10 MG PO (09:04)
[2025-03-04 09:22] LABS: Blood Urea Nitrogen 19 mg/dl (7-17); Calcium 9.2 mg/dl (8.4-10.2); Carbon Dioxide 29 mmol/L (22-30); Chloride 104 mmol/L (98-107); Estimated Creatinine Clearance 59 ml/min; Glucose 118 mg/dl (70-99); Potassium 5.2 mmol/L (3.5-5.1); Sodium 139 mmol/L (135-145); eGFR > 60.00
[2025-03-04 09:35] LABS: Hematocrit 34.7 % (37.0-47.0); Hemoglobin 11.7 g/dL (12.0-16.0); Mean Corp Hgb Conc. 33.7 g/dL (33.0-37.0); Mean Corpuscular Hgb 31.5 pg (27.0-31.0); Mean Corpuscular Volume 93.5 fL (81.0-99.0); Mean Platelet Volume 10.2 fL (7.4-10.4); Platelet Count 206 10^3/uL (130-400); Red Blood Cell Count 3.71 10^6/uL (4.20-5.40)
[2025-03-04] MEDS: LANTUS 0.32 UNITS SC (10:13)
[2025-03-04 12:41] LABS: Glucose - Point of Care 168 mg/dl (70-99)
[2025-03-04] MEDS: NOVOLOG FLEXPEN-LOW RESISTANCE 1 UNITS SC (13:11)
--- NOTE | 2025-03-04 15:28 | PTCARENOTE ---
Assessmnet as documented. Pt w/o complaints and in good spirits. Family visiting
[2025-03-04 16:27] LABS: Glucose - Point of Care 125 mg/dl (70-99)
[2025-03-04] MEDS: LIPITOR 40 MG PO (17:22)
[2025-03-04] MEDS: COREG 3.25 MG PO (20:06)
[2025-03-04 21:35] LABS: Glucose - Point of Care 135 mg/dl (70-99)
--- NOTE | 2025-03-04 23:07 | PTCARENOTE ---
pt converted to sinus 70's- ekg to be done in am
[2025-03-05] VITALS (9 sets, daily range): BP systolic 105–134; BP diastolic 61–93; BMI 29.8
[2025-03-05 04:58] LABS: Hematocrit 35.1 % (37.0-47.0); Hemoglobin 11.9 g/dL (12.0-16.0); Mean Corp Hgb Conc. 33.9 g/dL (33.0-37.0); Mean Corpuscular Hgb 31.3 pg (27.0-31.0); Mean Corpuscular Volume 92.4 fL (81.0-99.0); Mean Platelet Volume 9.9 fL (7.4-10.4); Platelet Count 241 10^3/uL (130-400)
[2025-03-05 05:22] LABS: Blood Urea Nitrogen 26 mg/dl (7-17); Calcium 9.6 mg/dl (8.4-10.2); Carbon Dioxide 26 mmol/L (22-30); Chloride 104 mmol/L (98-107); Estimated Creatinine Clearance 59 ml/min; Glucose 103 mg/dl (70-99); Potassium 4.8 mmol/L (3.5-5.1); Sodium 138 mmol/L (135-145); eGFR > 60.00
[2025-03-05 08:17] LABS: Glucose - Point of Care 107 mg/dl (70-99)
[2025-03-05] MEDS: NOVOLOG FLEXPEN-LOW RESISTANCE SC ×2 (08:23→17:18)
[2025-03-05] MEDS: LIDOCAINE 4% PATCH 1 PATCH TOPICAL (08:46)
[2025-03-05] MEDS: COREG 3.25 MG PO ×2 (08:47→19:32)
[2025-03-05] MEDS: ELIQUIS 5 MG PO ×2 (08:47→19:32)
[2025-03-05] MEDS: GLUCOPHAGE 1000 MG PO ×2 (08:47→18:04)
[2025-03-05] MEDS: LOW STRENGTH ASPIRIN 81 MG PO (08:47)
[2025-03-05] MEDS: PLAVIX 75 MG PO (08:47)
[2025-03-05] MEDS: VASOTEC 10 MG PO ×2 (08:47→19:36)
[2025-03-05] MEDS: LASIX 20 MG PO (08:47)
[2025-03-05] MEDS: FARXIGA 10 MG PO (08:48)
[2025-03-05] MEDS: PACERONE 400 MG PO ×2 (08:48→19:32)
[2025-03-05] MEDS: LEXAPRO 10 MG PO (08:50)
[2025-03-05] MEDS: LANTUS 0.32 UNITS SC (08:54)
[2025-03-05] MEDS: ALDACTONE 25 MG PO (08:54)
[2025-03-05] MEDS: GLUCOTROL 5 MG PO ×2 (08:54→18:03)
--- NOTE | 2025-03-05 12:18 | W.PN.CARDCBS ---
Today's Communication / Plan
-
PT/OT and discharge planning
Continue to monitor telemetry
Antiplatelets/anticoagulant therapy
Guideline directed medical therapy post PCI with outpatient follow-up on on revascularized RCA
Guideline directed medical therapy as tolerates and up titration for heart failure with reduced ejection fraction
Impression / Plan
-
PCP: Dr. Mukund Welch
Outpatient Panel Coverer: Dr. Kem Zavala
Impression:
Admitted with STEMI 02/26/25
Cardiogenic shock
s/p RHC with CI 1.43, SVR 1839 02/27/25
s/p IABP placement 02/27/25, removed 03/01/2025
ICM EF 15-20%
Acute HFrEF
CAD
acute anterolateral STEMI with 100% thrombotic occlusion of the mid LAD with 3.0 x 18 mm [employer] [place] EULOGIO, complicated by no reflow treated with rounds of vasodilators 02/26/25
residual 75 to 80% distal RCA stenosis just proximal to the bifurcation of the RPDA and the RPL
Paroxysmal atrial fibrillation
Afib with RVR starting 02/26/25 converted to sinus rhythm 03/26
Chronic anticoagulation with Eliquis
Hypertension
Hyperlipidemia
Type 2 diabetes mellitus, [id number]
h/o TIA
Ambulatory dysfunction, using a cane
Prior falls
Former smoker
Lives alone independently
Echo 08/01/2022: EF 55-60%
Echo 02/26/2025: EF 15-20%, severe global hypokinesis with mid anteroseptal, mid anterior, mid septal, and apical akinesis, stage I diastolic dysfunction, mild MR, mod TR with PAP 54 mmHg
Echo 03/02/2025: EF 35-40%, mild cLVH, anterior, anteroseptal, and apical hypokinesis, false tendon in the LV apex, PFO present w/ L to R shunt, MAC, prolapse of posterior mitral leaflet present, mild MR, mild TR, estimated PAP 27 mmHg
Plan:
She is doing well today. She denies chest pain, palpitations and dizziness. She feels that her breathing is doing well overall. She does have incentive spirometry.
-She was initially admitted w/ STEMI and cardiogenic shock. Trop peaked at 154. Underwent LHC and with LAD PCI complicated by no reflow that was treated with rounds of vasodilator. Residual disease noted in the RCA w/ plan for eventual staged
intervention after assessment as an outpatient. Cardiogenic shock noted earlier in admission and IABP in place 02/27 to 03/01. Severely depressed left ventricular ejection fraction which has made some improvement post intervention.
Continue post PCI care.
Continue triple therapy with aspirin, Plavix, and Eliquis for 1 week (until 03/09/2025) and then Plavix and Eliquis thereafter for the next year.
Lipid-lowering LDL 44. Outpatient dose of simvastatin changed to atorvastatin
Aggressive diabetes care HgbA1c 8.6%. DM ESCORT PATIENTS following.
-On 02/26/2025 she developed rapid afib which was new. She converted to sinus rhythm 03/05/25.
She continues on loading w/ amiodarone 400mg BID. Has received 5.85 grams of IV/PO amiodarone as of early AM 03/04.
Likely de-escalate amiodarone on discharge to 200 mg twice daily for 1 week and then 200 mg daily to complete load
Continue oral anticoagulation
Continue to monitor telemetry. Independently reviewed by me.
EKG sinus rhythm reviewed by me today. Previously QT interval on 03/02 was prolonged now normal.
-She has heart failure with reduced ejection fraction in the setting of acute MO and cardiogenic shock. Echo initially 02/26 noted EF down to 15-20%. Up to 35-40% by follow up echo 03/02.
She is starting to tolerate up titration of guideline directed medical therapy. Continue uptitration of medical therapy as able.
Continue enalapril 10mg BID (consider switch to Entresto as an outpatient but would need to hold 72 hours), spironolactone 25mg daily. Coreg 1.5625 BID and Farxiga added 03/03.
Continue PO lasix 20mg daily. Creat stable. Weight stable.
Reassess 40-day echo for LV function
-Diabetes per primary service
-PT/OT and home visiting nurses
-Eventual outpatient cardiac rehab once improved, cardiac rehab consulted as well
She is getting closer to discharge and if stable may be ready tomorrow.
-
HPI: Patient is a 85-year-old female with past medical history of hypertension, hyperlipidemia, type 2 diabetes mellitus, [id number], former smoker coronary artery disease with a prior silent MO per patient, persistent atrial fibrillation
on chronic Eliquis and beta-danny, prior TIA, some ambulatory dysfunction using a cane with prior falls however none recently who presents from home brought in by EMS after having sudden onset substernal chest discomfort around 930 this evening
while she was at rest watching TV associated with shortness of breath and generalized fatigue. She went to bed on without any difficulties and had no other complaints throughout the day yesterday. She ate her dinner without any
abnormalities. She was called in as a prehospital ST elevation MO with EKG showing significant anterolateral ST elevations concerning for a anterolateral ST elevation MO for which heart catheterization lab was activated. In the emergency room she
continued to have 6-8 out of 10 chest discomfort and she received 325 mg of aspirin, 180 mg of Brilinta, 4000 units of unfractionated heparin. Last dose of Eliquis was on evening of February 25, 2025. She denies any allergies to contrast dye. After
detailed informed consent was obtained she was emergently brought up to the heart catheterization lab. She definitely saw her photographic process attendant earlier this week on Thursday with no medication changes and she was otherwise doing well so no other changes
were made. No recent stress test per patient.
Progress Note - Panel Coverer
Subjective
Date of Service: March 05, 2025
She denies chest pain and palpitations. She feels her breathing is better today.
Objective
Labs:
03/05/25 04:40
03/05/25 04:40
Labs
Hgb 11.9 g/dL (12.0-16.0) L 03/05/25 04:40
Hct 35.1 % (37.0-47.0) L 03/05/25 04:40
Plt Count 241 10^3/uL (130-400) 03/05/25 04:40
PT 17.5 Sec (11.4-14.6) H 02/26/25 00:37
INR 1.41 02/26/25 00:37
APTT Cancelled 03/02/25 11:00
Sodium 138 mmol/L (135-145) 03/05/25 04:40
Potassium 4.8 mmol/L (3.5-5.1) 03/05/25 04:40
BUN 26 mg/dl (7-17) H 03/05/25 04:40
Creatinine 0.8 mg/dL (0.6-1.0) 03/05/25 04:40
Glucose 103 mg/dl (70-99) H 03/05/25 04:40
Vital Signs and I&O:
Vital Signs
Temp Pulse Resp BP Pulse Ox
97.9 F 80 18 114/71 98
03/05/25 11:39 03/05/25 11:39 03/05/25 11:39 03/05/25 11:39 03/05/25 11:39
Vital Signs
Temp Pulse Resp BP Pulse Ox
97.9 F 80 18 114/71 98
03/05/25 11:39 03/05/25 11:39 03/05/25 11:39 03/05/25 11:39 03/05/25 11:39
Intake & Output
03/03/25 03/04/25 03/05/25 03/06/25
06:59 06:59 06:59 06:59
Intake Total 94 / 94 1080 / 1080
Output Total 450 / 450
Balance -356 / -356 1080 / 1079
Physical Exam
Physical Exam
General: Well developed, well nourished in NAD.
Heart: Non displaced PMI, RRR, no murmurs, No S3, S4, no rubs.
Lungs: Clear to auscultation bilaterally but decreased at bases
Extremities: No clubbing, cyanosis or edema bilaterally.
Neuro: Grossly nonfocal, awake, alert and oriented x3.
[2025-03-05 12:24] LABS: Glucose - Point of Care 177 mg/dl (70-99)
[2025-03-05] MEDS: NOVOLOG FLEXPEN-LOW RESISTANCE 1 UNITS SC (13:17)
[2025-03-05 17:12] LABS: Glucose - Point of Care 116 mg/dl (70-99)
[2025-03-05 18:02] LABS: Glucose - Point of Care 99 mg/dl (70-99)
[2025-03-05] MEDS: LIPITOR 40 MG PO (18:04)
[2025-03-05 18:24] LABS: Urine Albumin Negative (Neg - Trace); Urine Bilirubin Negative (Negative); Urine Character Slightly Cloudy (Clear); Urine Color Yellow; Urine Glucose 4+ (Negative); Urine Ketone Negative (Negative); Urine Leukocyte 2+ (Negative); Urine Nitrite Positive (Negative); Urine Occult Blood 1+ (Negative); Urine Specific Gravity 1.015 (<1.030); Urine Urobilinogen 1+ (Neg - 1+)
[2025-03-05 19:26] LABS: Urine Bacteria Moderate (Negative); Urine Red Blood Cell 0-2 /HPF (0-2); Urine White Cell 30-40 /HPF (0-5)
[2025-03-05 21:15] LABS: Glucose - Point of Care 95 mg/dl (70-99)
[2025-03-06 03:00] VITALS: BP 126/75; BMI 30.1
[2025-03-06 03:21] LABS: Hematocrit 34.1 % (37.0-47.0); Hemoglobin 11.5 g/dL (12.0-16.0); Mean Corp Hgb Conc. 33.7 g/dL (33.0-37.0); Mean Corpuscular Volume 91.9 fL (81.0-99.0); Mean Platelet Volume 9.7 fL (7.4-10.4); Platelet Count 298 10^3/uL (130-400); Red Blood Cell Count 3.71 10^6/uL (4.20-5.40); Red Cell Dist. Width 12.9 % (11.5-14.5); White Blood Cell Count 10.5 10^3/uL (4.8-10.8)
[2025-03-06 05:45] LABS: Blood Urea Nitrogen 24 mg/dl (7-17); Calcium 10.1 mg/dl (8.4-10.2); Carbon Dioxide 27 mmol/L (22-30); Chloride 103 mmol/L (98-107); Estimated Creatinine Clearance 59 ml/min; Glucose 65 mg/dl (70-99); Potassium 5.3 mmol/L (3.5-5.1); Sodium 138 mmol/L (135-145); eGFR > 60.00
[2025-03-06 06:10] LABS: Glucose - Point of Care 76 mg/dl (70-99)
--- NOTE | 2025-03-06 06:10 | PTCARENOTE ---
am glucose on labs was 65- 4 oz oj given repeat 15 minutes later was 76- pt will be on low glucose protocol with q2h accu checks - will pass on to next shift
[2025-03-06 08:10] VITALS: BP 114/68
[2025-03-06 08:17] LABS: Glucose - Point of Care 101 mg/dl (70-99)
[2025-03-06] MEDS: FARXIGA 10 MG PO (08:17)
[2025-03-06] MEDS: PLAVIX 75 MG PO (08:17)
[2025-03-06] MEDS: LEXAPRO 10 MG PO (08:18)
[2025-03-06] MEDS: COREG 3.25 MG PO (08:20)
[2025-03-06] MEDS: ALDACTONE 25 MG PO (08:23)
[2025-03-06] MEDS: VASOTEC 10 MG PO (08:23)
[2025-03-06] MEDS: ELIQUIS 5 MG PO (08:24)
[2025-03-06] MEDS: PACERONE 400 MG PO (08:24)
[2025-03-06] MEDS: LOW STRENGTH ASPIRIN 81 MG PO (08:24)
[2025-03-06] MEDS: LIDOCAINE 4% PATCH 1 PATCH TOPICAL (08:25)
[2025-03-06] MEDS: LASIX 20 MG PO (08:25)
--- NOTE | 2025-03-06 08:48 | PN.DE.MGMTRT ---
Insulin Management
- -
03/06/2025: Diabetes Management Follow up
85 year old female admitted with STEMI on 02/26/25. PMH: HTN, HLD, PAF on AC, GERD, MVP, h/o hemorrhoids and T2DM. Pt presented to the ED with substernal chest pain due to an Acute STEMI and underlying CAD with prior NC (silent). Pt underwent
successful PCI to her mid LAD with 100% occlusion with EULOGIO
Pt was taking [id number] mg BID and Glipizide 5mg daily prior to admission. She routinely follows up with Dr. Zavala her PCP for diabetes care. A1C 8.6%, Cr 0.6, eGFR >60.
Pt awake, alert, oriented, sitting up @ edge of bed, offers no complaints, awaiting discharge home today.
s/p RHC, noted for Cardiogenic shock, ICM EF 15-20% and Acute HFrEF s/p IABP placement 02/27/25- removed 03/01/2025
Glucose improved over the weekend to a premeal range of 99 to 177. Noted for an episode of hypoglycemia as low as 65 V,101 POC
Will reduce Lantus to 28 units @ HS. Cont Farxiga 10mg daily, Glipizide 5mg BID and Metformin at 1000 mg BID,
Pt's monthly co-pay for Jardiance and Farxiga is $47, however, Jardiance is listed as preferred by her insurance carrier. Please start Jardiance at upon discharge home.
Will cont to follow and make further insulin dose adjustments if necessary
Pt has a working glucose monitor at home with enough supplies.
Meds at discharge: Lantus 28 units @ HS, Glipizide 5mg BID, Metformin 1000 mg BID and Jardiance 10mg daily
Diabetes History
- -
Type of Diabetes: 2 requiring insulin
Pre-Admission Diabetes Regimen
03/06/25 03/06/25
03:06 04:29
Creatinine Cancelled 0.8
Lab Results
Hemoglobin A1c 8.6 % (4.0-5.6) H 02/26/25 02:42
Insulin Pump Settings
IP Diabetes Regimen
03/05/25 03/05/25 03/05/25
12:22 17:09 18:01
Glucose
POC Glucose 177 H 116 H 99
03/05/25 03/06/25 03/06/25
21:14 03:06 04:29
Glucose Cancelled 65 L
POC Glucose 95
03/06/25 03/06/25
06:09 08:15
Glucose
POC Glucose 76 101 H
Meal type: Dinner
Amount consumed: 100%
Patient Education
[2025-03-06] MEDS: LANTUS 0.28 UNITS SC (09:52)
[2025-03-06] MEDS: GLUCOPHAGE 1000 MG PO (09:52)
[2025-03-06] MEDS: GLUCOTROL 5 MG PO (09:52)
[2025-03-06] MEDS: LANTUS SC (09:55)
[2025-03-06] MEDS: NOVOLOG FLEXPEN-LOW RESISTANCE SC ×2 (09:55→12:39)
--- NOTE | 2025-03-06 11:00 | W.PN.CARDCBS ---
Addendum entered and electronically signed by Yolanda Grace PA-C 03/06/25 15:19:
[id number]
Addendum entered and electronically signed by Fidel Villalpando DO 03/06/25 12:39:
I saw and examined the patient.
The Supervisor Metalizing's note was reviewed and I agree with the note.
Comment:
Plan:
Stable for d/c today
Cont current regimen.
Remains sinus. Cont amiodarone 200 mg BID for one week then 200 mg daily
Triple therapy until March 09 then cont Plavix and Eliquis
Outpt follow up arranged.
Original Note:
Today's Communication / Plan
-
Continue current cardiac medications
In SR. will discharge on lower dose amiodarone 200mg BID x 1 week, then decrease to 200mg daily
Continue triple therapy w/ aspirin, plavix, and Eliquis until 03/09, then stop aspirin and continue Plavix and Eliquis
Follow up w/ PCP for ongoing DM management.
Cardiology follow up arranged
OK for discharge
Impression / Plan
-
PCP: Dr. Mukund Welch
Outpatient Leadership Development Consultant: Dr. Kem Zavala
Impression:
Admitted with STEMI 02/26/25
Cardiogenic shock
s/p RHC with CI 1.43, SVR 1839 02/27/25
s/p IABP placement 02/27/25, removed 03/01/2025
ICM EF 15-20%
Acute HFrEF
CAD
acute anterolateral STEMI with 100% thrombotic occlusion of the mid LAD with 3.0 x 18 mm [employer] [place] EULOGIO, complicated by no reflow treated with rounds of vasodilators 02/26/25
residual 75 to 80% distal RCA stenosis just proximal to the bifurcation of the RPDA and the RPL
Paroxysmal atrial fibrillation
Afib with RVR starting 02/26/25 converted to sinus rhythm 03/26
Chronic anticoagulation with Eliquis
Hypertension
Hyperlipidemia
Type 2 diabetes mellitus, [id number]
h/o TIA
Ambulatory dysfunction, using a cane
Prior falls
Former smoker
Lives alone independently
Echo 08/01/2022: EF 55-60%
Echo 02/26/2025: EF 15-20%, severe global hypokinesis with mid anteroseptal, mid anterior, mid septal, and apical akinesis, stage I diastolic dysfunction, mild MR, mod TR with PAP 54 mmHg
Echo 03/02/2025: EF 35-40%, mild cLVH, anterior, anteroseptal, and apical hypokinesis, false tendon in the LV apex, PFO present w/ L to R shunt, MAC, prolapse of posterior mitral leaflet present, mild MR, mild TR, estimated PAP 27 mmHg
Plan:
-Admitted w/ STEMI and cardiogenic shock. Trop peaked at 154. Underwent LHC and had LAD PCI complicated by no reflow that was treated with rounds of vasodilator. Residual disease noted in the RCA w/ plan for eventual staged intervention.
-Cardiogenic shock noted earlier in admission and IABP in place 02/27 to 03/01. Remains hemodynamically stable 03/06.
-Continue post ND care. On aspirin, plavix, and Eliquis for 1 week (until 03/09/2025). Will transition to Plavix and Eliquis thereafter.
-Eventually will arrange for staged intervention of the RCA, timing TBD at follow up visit.
-Also w/ rapid afib this admission and loaded w/ amiodarone. Spontaneously converted to SR 03/05 and remains in SR on review of tele.
-QTc 439ms by ECG in SR 03/05. At discharge will decrease amiodarone to 200mg BID for 1 week and then can decrease to 200mg daily thereafter
-Echo 02/26 noted EF as low as 15-20%, however appeared improved by follow up echo 03/02, up to 35-40%.
-Continue medical therapy with enalapril, spironolactone, coreg, and farxiga. BP stable. May consider switching enalapril to Entresto as OP.
-Appears euvolemic. Continue PO lasix 20mg daily. Weight stable at 192 lbs.
-Creat 0.8. K slightly elevated at 5.3 on 03/06. Will check BMP in 1 week after discharge. May need to decrease spironolactone.
-Repeat echo at 40 day aparna to reassess EF.
-LDL 44. Simvastatin changed to atorvastatin this admission.
-HgbA1c 8.6%. DM HEPATOLOGIST following. Episode of hypoglycemia this AM noted, however ok for discharge today. Will continue current DM regimen per HEPATOLOGIST.
-Stable for discharge home w/ VN.
-Cardiac rehab as OP
HPI: Patient is a 85-year-old female with past medical history of hypertension, hyperlipidemia, type 2 diabetes mellitus, [id number]-[id number], former smoker coronary artery disease with a prior silent ND per patient, persistent atrial fibrillation
on chronic Eliquis and beta-danny, prior TIA, some ambulatory dysfunction using a cane with prior falls however none recently who presents from home brought in by EMS after having sudden onset substernal chest discomfort around 930 this evening
while she was at rest watching TV associated with shortness of breath and generalized fatigue. She went to bed on without any difficulties and had no other complaints throughout the day yesterday. She ate her dinner without any
abnormalities. She was called in as a prehospital ST elevation ND with EKG showing significant anterolateral ST elevations concerning for a anterolateral ST elevation ND for which heart catheterization lab was activated. In the emergency room she
continued to have 6-8 out of 10 chest discomfort and she received 325 mg of aspirin, 180 mg of Brilinta, 4000 units of unfractionated heparin. Last dose of Eliquis was on evening of February 25, 2025. She denies any allergies to contrast dye. After
detailed informed consent was obtained she was emergently brought up to the heart catheterization lab. She definitely saw her public health outreach worker earlier this week on Thursday with no medication changes and she was otherwise doing well so no other changes
were made. No recent stress test per patient.
Progress Note - Leadership Development Consultant
Subjective
Date of Service: March 06, 2025
Feeling well this AM. No complaints
Objective
Labs:
03/06/25 03:06
03/06/25 04:29
Labs
Hgb 11.5 g/dL (12.0-16.0) L 03/06/25 03:06
Hct 34.1 % (37.0-47.0) L 03/06/25 03:06
Plt Count 298 10^3/uL (130-400) D 03/06/25 03:06
PT 17.5 Sec (11.4-14.6) H 02/26/25 00:37
INR 1.41 02/26/25 00:37
APTT Cancelled 03/02/25 11:00
Sodium 138 mmol/L (135-145) 03/06/25 04:29
Potassium 5.3 mmol/L (3.5-5.1) H 03/06/25 04:29
BUN 24 mg/dl (7-17) H 03/06/25 04:29
Creatinine 0.8 mg/dL (0.6-1.0) 03/06/25 04:29
Glucose 65 mg/dl (70-99) L 03/06/25 04:29
Vital Signs and I&O:
Vital Signs
Temp Pulse Resp BP Pulse Ox
97.5 F 75 20 126/75 96
03/06/25 08:08 03/06/25 03:00 03/06/25 08:08 03/06/25 03:00 03/06/25 08:08
Vital Signs
Temp Pulse Resp BP Pulse Ox
97.5 F 75 20 126/75 96
03/06/25 08:08 03/06/25 03:00 03/06/25 08:08 03/06/25 03:00 03/06/25 08:08
Intake & Output
05/03/25 05/04/25 05/05/25 05/06/25
06:59 06:59 06:59 06:59
Intake Total 1080 / 1080 440 / 440
Balance 1080 / 1080 440 / 440
Physical Exam
Physical Exam
GEN: No distress, awake, alert, oriented x3
HEENT: supple, anicteric, mmm
LUNGS: CTA b/l, no wheezes/rales
CV: Reg, S1/S2, no murmur
EXT: No clubbing, cyanosis, or edema
NEURO: Gross non-focal
SKIN: Warm, dry, no rash
[2025-03-06 11:41] VITALS: BP 117/60
--- NOTE | 2025-03-06 12:04 | W.DS.TRANS ---
DC Summary - Self Pay Representative
-
Discharge Instructions:
Discharge Diagnosis/Procedures STEMI
Angioplasty and stent to Left Anterior
Descending artery (02/26)
Diet Low Cholesterol,Diabetic, Carb Controlled,2 Gram
Sodium
Additional Activity No lifting >10 lbs for 1 week following [facility]
Driving Restrictions No driving for 24 hours
Bathing Restrictions OK to Shower
Blood Work BMP in 1 week
Other Services Cardiac Rehab
Specialty Instructions Weigh Daily
Instructions:
Stand-Alone Forms: DC Instructions- Cath/EP Lab
Changes to Home Medications: Yes
Discharge Medications:
DC Medications w/original date entered in [employer]
escitalopram oxalate 10 mg tablet 10 mg PO DAILY Mental Health/Anxiety 03/08/13
metformin 1,000 mg tablet 1,000 mg PO BID Diabetes 03/08/13
cinnamon bark 500 mg capsule (Cinnamon) 500 mg PO DAILY Supplement 02/27/22
apixaban 5 mg tablet (Eliquis) 5 mg PO BID Blood Clot Prevention/Tx 02/27/25
calcium 500 mg tablet 500 mg PO BID Supplement 02/27/25
ryencfdf-klgs-budj 8 mg-folic 400 mcg-K 50 mcg-lutein 300 mcg tablet (Centrum Silver Women) 1 tab PO DAILY Supplement 02/27/25
amiodarone 200 mg tablet 200 mg PO BID Arrhythmia #14 tabs 03/06/25
amiodarone 200 mg tablet 200 mg PO DAILY Arrhythmia #30 tabs 03/06/25
aspirin 81 mg chewable tablet 81 mg PO DAILY Blood clot prevention/tx #3 tabs 03/06/25
atorvastatin 40 mg tablet 40 mg PO QPM High cholesterol #30 tabs 03/06/25
carvedilol 3.25 mg tablet 3.25 mg PO BID Heart disease/condition #60 tabs 03/06/25
clopidogrel 75 mg tablet 75 mg PO DAILY Blood clot prevention/tx #30 tabs 03/06/25
dapagliflozin propanediol 10 mg tablet 10 mg PO DAILY Diabetes #30 tabs 03/06/25
enalapril maleate 10 mg tablet 10 mg PO BID #60 tabs 03/06/25
furosemide 20 mg tablet 20 mg PO DAILY Heart disease/condition #30 tabs 03/06/25
glipizide 5 mg tablet 5 mg PO BID@0800,1700 Diabetes #60 tabs 03/06/25
insulin glargine 100 unit/mL subcutaneous solution (Lantus U-100 Insulin) 28 unit (0.28 mL) SC DAILY Diabetes #10 mL 03/06/25
spironolactone 25 mg tablet 25 mg PO DAILY Heart disease/condition #30 tabs 03/06/25
Home Medication Changes
Amiodarone is new
Aspirin is new
Atorvastatin is new, simvastatin stopped
Coreg is new, metoprolol stopped
Plavix is new
Farxiga is new
Enalapril is new, losartan stopped
furosemide is new, chlorthalidone stopped
glipizide is higher dose
Lantus is new
Spironolactone is new
Pending Results: Yes
Additional Pending Results:
Urine culture results
[2025-03-06 12:24] LABS: Glucose - Point of Care 109 mg/dl (70-99)
--- NOTE | 2025-03-06 13:16 | CM ---
Reviewed chart. Met with Mrs. Cueto to review discharge plans. She states she is feeling well and maybe able to go home soon. We reviewed [facility] and she is agreeable to [facility]. Prior to admission she resides alone
in a two story home with five steps to enter. She has an elevator to get to the second floor. Prior to admission she was independent with ambulation in her home and uses a single point cane in the community. She ambulated 100 feet with a rolling
walker and supervision. She has a prescription plan and uses [facility]. Medical work-up in progress. The discharge plan is to return home with [facility] when medically stable.
--- NOTE | 2025-03-06 14:57 | PTCARENOTE ---
Discharge instructions reviewed with Pt, she expressed understanding
== END 2025-03-06 15:35 | disposition home health service (06) | DRG 270 ==
LOC: IVU 02:20
PROVIDERS: Internal Medicine Cardiovascular Disease; Nurse Practitioner; Nurse Practitioner Family; Physician Assistant; Physician Assistant Medical; ADMITTING PHYSICIAN Internal Medicine; ATTENDING PHYSICIAN Internal Medicine Interventional Cardiology; EMERGENCY PHYSICIAN Student in an Organized Health Care Education/Training Program
PROC: 4A023N7 Measurement of Cardiac Sampling and Pressure, Left Heart, Percutaneous Approach (ICD-10-PCS; 2025-02-26)
PROC: B240ZZ3 Ultrasonography of Single Coronary Artery, Intravascular (ICD-10-PCS; 2025-02-26)
PROC: 027034Z Dilation of Coronary Artery, One Artery with Drug-eluting Intraluminal Device, Percutaneous Approach (ICD-10-PCS; 2025-02-26)
PROC: B2111ZZ Fluoroscopy of Multiple Coronary Arteries using Low Osmolar Contrast (ICD-10-PCS; 2025-02-26)
PROC: 4A023N6 Measurement of Cardiac Sampling and Pressure, Right Heart, Percutaneous Approach (ICD-10-PCS; 2025-02-27)
PROC: 5A02210 Assistance with Cardiac Output using Balloon Pump, Continuous (ICD-10-PCS; 2025-02-27)
PROC: 02HP32Z Insertion of Monitoring Device into Pulmonary Trunk, Percutaneous Approach (ICD-10-PCS; 2025-02-27)
DX: I21.09 ST elevation (STEMI) myocardial infarction involving other coronary artery of anterior wall (principal); I50.21 Acute systolic (congestive) heart failure; R57.0 Cardiogenic shock; I48.19 Other persistent atrial fibrillation; E87.20 Acidosis, unspecified; J98.11 Atelectasis; I25.5 Ischemic cardiomyopathy; I11.0 Hypertensive heart disease with heart failure; I25.10 Atherosclerotic heart disease of native coronary artery without angina pectoris; Z79.01 Long term (current) use of anticoagulants; E78.00 Pure hypercholesterolemia, unspecified; E11.649 Type 2 diabetes mellitus with hypoglycemia without coma; Z86.73 Personal history of transient ischemic attack (TIA), and cerebral infarction without residual deficits; Z91.81 History of falling; Z87.891 Personal history of nicotine dependence; Z79.899 Other long term (current) drug therapy; K58.9 Irritable bowel syndrome, unspecified; Z96.653 Presence of artificial knee joint, bilateral; Z96.611 Presence of right artificial shoulder joint; Z88.0 Allergy status to penicillin; Z88.5 Allergy status to narcotic agent; Z79.84 Long term (current) use of oral hypoglycemic drugs; D72.829 Elevated white blood cell count, unspecified; I25.2 Old myocardial infarction; K21.9 Gastro-esophageal reflux disease without esophagitis
CPT/HCPCS: 93308; 33967; 71045; 71046; 80048; 80053; 80061; 81003; 81015; 82810; 82947; 82962; 83036; 83605; 83615; 83735; 83880; 84484; 85025; 85027; 85347; 85610; 85730; 87077; 87086; 92978; 93005; 93306; 93321; 93325; 93451; 97116; 97163; 97166; 97530; 97535; 99152; 99153; 99291; C1725; C1753; C1874; C1894; C9606; J0153; J1160; Q9957; Q9967

== ENCOUNTER → 2025-03-10 14:51 | Outpatient (REF) | payer MEDICARE, SELFPAY | LOC: RAD 14:51 | PROVIDERS: ATTENDING PHYSICIAN Physician Assistant; FAMILY PHYSICIAN Physician Assistant Medical | DX: D72.829 Elevated white blood cell count, unspecified (principal) | CPT/HCPCS: 71046 ==

== ENCOUNTER 2025-03-11 15:51 | Inpatient (IN) | payer MEDICARE, SELFPAY ==
[2025-03-11] VITALS (7 sets, daily range): BP systolic 100–139; BP diastolic 55–80; PULSE 83–85; BMI 27.5
--- NOTE | 2025-03-11 12:14 | ED.GENMED ---
History of Present Illness
General
Chief Complaint: Fall
Source: patient
Exam Limitations: none
Time Seen by Provider: 03/11/25 12:13
Nursing documentation reviewed up to this point in time: agreed with
History of Present Illness
History of Present Illness:
85-year-old female with history of TIA, balance problems, A-fib on Eliquis, HTN, HLD, GERD, NIDDM, depression, MO 02/26/2025 with stent LAD,, ischemic cardiomyopathy, EF 35-40%, CHF, presents stating at 10:30 this a.m. was in laundry room, got
ringing in her ears, and 'I fell backwards.' Landed on her buttocks and twisted right ankle. She was unable to get up. Son arrived 20 minutes later and could not get her up due to her weight and injured ankle so called EMS. She denies hitting her
head, she did not lose consciousness. Recalls the entire incident.
Her BP has been low and her Enalapril BID was changed to OD and her Amiodarone BID changed to OD due to her low BP's. Son states BP this a.m. was 96/
Pt denies CP, SOB, abdominal pain, headache. Denies weakness, feels 100% back to her baseline save for pain in right ankle.
Past History
Past History
ED Past Medical History: Arrthythmia, GERD, HTN, Hypercholesterolemia and NIDDM
ED Past Surgical History: Orthopedic and Urological
Social History
Tobacco: Former smoker
Alcohol: None
Drug: None
Personal:
Living: alone
Employment: Retired
Family History
Family History: Other (Noncontributory)
Review of Systems
Review of Systems
Allergies reviewed?: Yes
All Other Systems: ROS reviewed and negative except as documented in HPI and ROS
Constitutional: Denies fever
Respiratory: Denies trouble breathing
Cardiac: Denies chest pain, diaphoresis, palpitations or syncope
ABD/GI: Denies abdominal pain, nausea, vomiting, diarrhea or anorexia
: Reports incontinence (chronic); Denies dysuria, frequency, difficulty voiding or urgency
Musculoskeletal: Reports other (pain and swelling right ankle); Denies edema
Skin: Reports no symptoms
Neurological: Reports no symptoms; Denies headache, weakness or numbness
Phy Exam
Physical Exam
Physical Exam:
GENERAL: No acute distress. A&Ox3.
CONSTITUTIONAL: Afebrile.
EYES: clear, conjunctivae normal
ENMT: moist mucus membranes, Pharynx nl
RESPIRATORY: Regular respirations, nonlabored, lungs clear.
CARDIOVASCULAR: Regular rate and rhythm, no murmurs, no rubs.
GI: Soft, nontender, normal BS
MUSCULOSKELETAL: No spinal bony tenderness. Right ankle tender and mildly swollen, Normal DP and PT pulses, normal capillary refill. Moves with ease. Well perfused.
SKIN: Warm, dry, pink
PSYCH: Normal mood and affect. Well kept, interactive and appropriate
NEUROLOGIC: Awake, alert and oriented. No focal neurological deficits
Course
Orders/Labs/Results
Orders:
Orders
03/11/25 11:53
Electrocardiogram (*1) Urgent
Reason for Study: Other
Other Reason for Exam: lightheaded
EKG- Treatment ONCE
Ankle, Right 3 view CR [CR Ankle - Right Min 3 Views *] Urgent
Comment:
Reason For Exam: fell to ground twisted ankle
03/11/25 13:08
Complete Blood Count/With Diff Urgent
Comprehensive Metabolic Panel Urgent
Creatine Phosphokinase Urgent
Comment: ADDON
03/11/25 14:09
0.9% Sodium Chloride 500 ml [Nss] 500 ml IV BOLUS
03/11/25 14:42
Stirrup Splint Right-Treatment ONCE
03/11/25 14:49
ORTHOPEDIC CONSULT Urgent
Consulting Provider: Abelino Jackson
Was physician already notified: Yes
Reason for consult: fracture right ankle, distal fibula, medial malleolus
03/11/25 Dinner
2000 calorie (17 carb) Diabetic
At Your Request: Full Participation
Diabetic Diet: Cholesterol Lowering
03/11/25 15:11
CT Head W/o Iv Contrast Routine
Comment:
Reason For Exam: Fall, h/o ICH
03/11/25 15:30
Admit/Transfer Patient As Directed
Co-Sign Provider:
Level of Care: Inpatient admission
Assign to:: Telemetry
Physician / Group: Marcello Mena
Diagnosis: Ankle fracture, dysequilibrium, AFL/AF
Reason for Telemetry: Arrhythmia
Date to Stop Telemetry: 03/14/25
Time to Stop Telemetry: 11:00
Reason for Hospitalization: Ankle fracture, disequilibrium with fall, transient AFL/AF + RVR
Expected length of stay greater than two midnights?: Yes
ELOS- Estimated Length of Stay in days: 3
I certify the patient meets the requirements for IP care: Yes
PRN Pain Medication Management As Directed
May give lesser potent ordered pain med per pt: Yes
preference::
Protocol:: Medication orders for pain may be administered in a
manner that supports deferring to patient preference
when the pt is:
- Requesting an ordered lesser potent pain medication.
Least to most potent pain medications are defined
as: acetaminophen < NSAID < tramadol < opioids
(morphine, oxycodone, hydromorphone).
- Requesting a lesser dose of the same medication IF
ORDERED.
- Requesting a less intrusive route of administration
if both routes are prescribed by the provider (PO <
IV).
03/11/25 15:36
Code Status As Directed
Resuscitation Status: Full Code
03/11/25 15:47
CARDIOLOGY CONSULT Routine
Consulting Provider: Kem Zavala
Was physician already notified: Yes
Reason for consult: Pre-op risk assessment, Recent LAD PCI
Accucheck [Bedside Glucose Monitoring] As Directed
Frequency: AC&HS
03/11/25 16:30
Insulin Aspart Corrective Mod [Novolog Flexpen-Moderate Resistance] See Protocol SC AC
03/11/25 17:25
Acetaminophen [Tylenol] 650 mg PO Q4HPRN PRN
Bisacodyl [Dulcolax] 10 mg RECTAL [id number] PRN
Docusate W/Senna [Senokot-S] 1 tablet PO BIDPRN PRN
Ondansetron Injectable [Zofran] 4 mg IV Q6HPRN PRN
Oxycodone [Roxicodone] 5 mg PO Q4HPRN PRN
Polyethylene Glycol Powder [Miralax] 17 grams PO DAILYPRN PRN
03/11/25 17:25
Activity As Directed
Activity Level: Out of Bed-Early Mobility
Comment: Pending OR with ortho
Intake/ Output As Directed
Frequency: Per unit guidelines
Pneumatic Compression Sleeves As Directed
Type: Knee high
Vital Signs As Directed
Frequency: Per unit guidelines
Weight As Directed
Frequency: Daily
DX Deep Vein Thrombosis Video Routine
03/11/25 18:00
Atorvastatin [Lipitor] 40 mg PO QPM
03/11/25 20:00
Calcium Carbonate [Oscal Inocencio 500] 500 mg PO BID
Carvedilol [Coreg] 3.125 mg PO BID
03/12/25 Breakfast
NPO
Allow oral meds: Yes
Allow clear liquids: Sips of Clears
Basic Metabolic Panel IN AM
Complete Blood Count/With Diff IN AM
Magnesium IN AM
03/12/25 08:00
Aspirin Chewable [Low Strength Aspirin] 81 mg PO DAILY
Dapagliflozin [Farxiga] 10 mg PO DAILY
Escitalopram Oxalate [Lexapro] 10 mg PO DAILY
Furosemide [Lasix] 20 mg PO DAILY
Multivitamin [Theragran] 1 tablet PO DAILY
Spironolactone [Aldactone] 25 mg PO DAILY
cinnamon bark [Cinnamon] See Dose Instructions PO DAILY
03/14/25 11:00
DC Protocol for Telemetry ONCE
Abnormal Lab Results
03/11/25
13:08
WBC 13.8 H 10^3/uL
(4.8-10.8)
MCH 31.4 H pg
(27.0-31.0)
Plt Count 438 H D 10^3/uL
(130-400)
Abs Immat Gran (auto) 0.1 H 10^3/uL
(0-0.05)
Absolute Neuts (auto) 10.8 H 10^3/uL
(1.4-6.5)
Absolute Monos (auto) 0.7 H 10^3/uL
(0.1-0.6)
Neutrophils % 77.6 H %
(42.2-75.2)
Lymphocytes % 14.4 L %
(20.5-51.1)
BUN 35 H mg/dl
(7-17)
Creatinine 1.1 H mg/dL
(0.6-1.0)
Glucose 236 H mg/dl
(70-99)
Calcium 10.9 H mg/dl
(8.4-10.2)
03/11/25 13:08
03/11/25 13:08
Vital Signs
Initial and Last Documented VS:
Initial Vital Signs
Temp Pulse Resp BP Pulse Ox
98.1 F 75 16 100/55 98
03/11/25 11:47 03/11/25 11:47 03/11/25 11:47 03/11/25 11:47 03/11/25 11:47
Last Documented Vital Signs
Temp Pulse Resp BP Pulse Ox
99.2 F 82 20 137/74 96
03/11/25 17:32 03/11/25 17:32 03/11/25 17:32 03/11/25 17:32 03/11/25 17:32
MDM/Problems Addressed
Differential Diagnosis Includes:
fx vs sprain right ankle
Near syncope from dysrhythmia, dehydration, vaso vagal
MDM/Problems Addressed:
85-year-old female with history of TIA, balance problems, A-fib on Eliquis, HTN, HLD, GERD, NIDDM, depression, MO 02/26/2025 with stent LAD,, ischemic cardiomyopathy, EF 35-40%, CHF, presents stating at 10:30 this a.m. was in laundry room, got
ringing in her ears, and 'I fell backwards.' Landed on her buttocks and twisted right ankle. She was unable to get up. Son arrived 20 minutes later and could not get her up due to her weight and injured ankle so called EMS. She denies hitting her
head, she did not lose consciousness. Recalls the entire incident.
Her BP has been low and her Enalapril BID was changed to OD and her Amiodarone BID changed to OD due to her low BP's. Son states BP this a.m. was 96/
Pt denies CP, SOB, abdominal pain, headache. Denies weakness, feels 100% back to her baseline save for pain in right ankle. \\
BP 100/55 HR 75
EKG: A flutter with variable block. HR 118. Last EKG
Son at bedside states pt had elevated WBC and PCP ordered lab work for Thursday (2 days)
1:30 p.m.
CBC: WBC 13.8, may be reactive, otherwise unremarkable
CMP: BUN/creat 35/1.1, glucose 236 otherwise unremarkable.
Xray right ankle: Comminuted distal fibular fx, medial malleolus avulsion fx
2:30 p.m.
After 300 IVF's pt now in NSR on monitor.
Plan: Admit: Fracture RLE, near syncope, episode atrial flutter on arrival.
Hospitalist notified of admission
Orthopedic Dr. Jackson notified and in, he splinted patient
Pt returned from xray and monitor showing NSR HR 82
*EKG
EKG Intrepretation Date: 03/11/25
Interpretation: abnormal
Comparison EKG: changes noted (a flutter has replaced NSR)
Heart Rate: 118
Rate: tachycardiac
Rhythm: atrial flutter
Linn: normal axis
QRS Pattern: normal QRS
Ischemia: T-wave inversion
*Critical Care Note
Total Time (30-74mins, 75-104mins- exclusive of procedures): Not Applicable
ED Attending Note
-
Portions of this chart may have been created with voice recognition software.� Occasional wrong word or��sound alike� substitutions may have occurred due to the inherent limitations of voice recognition software.
Discharge Plan
Departure
Patient Disposition: Admit
Date of Disposition: 03/11/25
Time of Disposition: 14:38
Admit to: Telemetry
Presentation/result/management discussed w/ accepting MD/DO: Hospitalist
Condition: Fair
Discharge Problem:
Near syncope, Closed right ankle fracture, Atrial fibrillation/flutter
Interventions
Interventions:
*Risk Screen - Suicide Last Done: 03/11/25 11:47
*General Assessment Last Done: 03/11/25 14:42
*Neglect/Abuse Screening Last Done: 03/11/25 11:47
*ED- Fall Risk Assessment Last Done: 03/11/25 14:42
*Nursing Disposition Last Done: 03/11/25 17:18
ED-Musculoskeletal Assessment Last Done: 03/11/25 14:42
ED- Neurological Assessment Last Done: 03/11/25 14:42
ED-Skin Assessment Last Done: 03/11/25 14:42
Discharge Date and Time
Discharge Date/Time: 03/11/25 17:18
[2025-03-11 13:20] LABS: % Basophils 0.9 % (0-2); % Immature Granulocytes 0.4 % (0-0.5); % Lymphocytes 14.4 % (20.5-51.1); % Monocytes 4.7 % (1.7-9.3); % Neutrophils 77.6 % (42.2-75.2); Absolute Basophils 0.1 10^3/uL (0-0.2); Absolute Eosinophils 0.3 10^3/uL (0-0.7); Absolute Immature Granulocytes 0.1 10^3/uL (0-0.05); Absolute Monocytes 0.7 10^3/uL (0.1-0.6); Absolute Neutrophils 10.8 10^3/uL (1.4-6.5); Hematocrit 38.8 % (37.0-47.0); Hemoglobin 13.3 g/dL (12.0-16.0); Mean Corp Hgb Conc. 34.3 g/dL (33.0-37.0); Mean Corpuscular Hgb 31.4 pg (27.0-31.0); Mean Corpuscular Volume 91.7 fL (81.0-99.0); Mean Platelet Volume 9.4 fL (7.4-10.4); Nucleated Red Blood Cells % 0 %; Platelet Count 438 10^3/uL (130-400); Red Blood Cell Count 4.23 10^6/uL (4.20-5.40); Red Cell Dist. Width 13.2 % (11.5-14.5); White Blood Cell Count 13.8 10^3/uL (4.8-10.8)
[2025-03-11 13:34] LABS: ALT (SGPT) 23 U/L (0-35); AST (SGOT) 26 U/L (14-36); Albumin 4.2 g/dl (3.5-5.0); Alkaline Phosphatase 66 U/L (38-126); Blood Urea Nitrogen 35 mg/dl (7-17); Calcium 10.9 mg/dl (8.4-10.2); Carbon Dioxide 23 mmol/L (22-30); Chloride 102 mmol/L (98-107); Estimated Creatinine Clearance 40 ml/min; Glucose 236 mg/dl (70-99); Potassium 5.1 mmol/L (3.5-5.1); Sodium 137 mmol/L (135-145); Total Bilirubin 0.9 mg/dl (0.2-1.3); Total Protein 6.7 g/dl (6.3-8.2); eGFR 49.55
[2025-03-11] MEDS: NSS 500 IV (14:11)
--- NOTE | 2025-03-11 15:25 | HPS.HSE ---
Family Physician
-
Family Physician: Mukund Welch PA-C
Chief Complaint
-
Fall, ankle injury
History of Present Illness
85-year-old female with HFrEF (LVEF 35%) due to ischemic cardiomyopathy, CAD s/p LAD PCI (01/2025), paroxysmal AF on Eliquis, MVP, GERD, NIDDM C/B neuropathy, hypertension, dyslipidemia, osteoporosis, H/O bilateral knee replacements, H/O ectopic
, H/O ICH, H/O L5-S1 radiculopathy s/p multiple SARAH, H/O TIA that presented to the ED after she had a fall at home. Episode occurred around 10:30 AM today while the patient was in the laundry room she noted that her ears started to ring
and she fell backwards. Landed on her buttocks and twisted her right ankle, was unable to get up from that position. 20 minutes later her son arrived and was unable to get her up due to her weight and injured ankle, so he called EMS. Patient
denied any loss of consciousness, any head strike states she recalls the entire incident. Does mention that her blood pressure has recently been low and her antihypertensive regimen has been de-escalated. AFVSS through ED course. Labs with WBC
13.8, platelet count 438, creatinine 1.1, BUN 35, calcium 10.9, glucose 236. ECG showed atrial flutter with variable AV block, however patient subsequently converted back to NSR with HR WNL. X-ray of the right ankle showed bimalleolar Duarte type C
ankle fracture with instability.
Medical History
Past Medical History
Past Medical History: Reports Other
Additional Past Medical History:
HFrEF (35%)
Ischemic cardiomyopathy
CAD s/p LAD PCI (01/2025)
Paroxysmal AF on Eliquis
Mitral valve prolapse
GERD
NIDDM C/B neuropathy
Hypertension
Dyslipidemia
Osteoporosis
History of ectopic
History of ICH
History of lumbosacral radiculopathy
History of transient ischemic attack
Past Surgical History: Reports Other
Additional Past Surgical History:
L5/S1 epidural steroid injections (multiple)
Right shoulder replacement (2018)
Unilateral salpingectomy for ruptured ectopic (1970s)
Bilateral knee replacement
Bone graft from left hip to jaw
Cardiac stent to LAD (2024)
Social History
Tobacco: Former Smoker
Alcohol: Occasional
Drug: None
Living: Alone
Employment: Retired
Family History
Family History: Not pertinent
Allergies / Home Medications
Allergies reflects when Allergies were last updated in [facility].
Home Medications with original date entered in [facility]
Allergy/Medication List:
Allergies
Allergy/AdvReac Type Severity Reaction Status Date / Time
amoxicillin Allergy NAUSEA Verified 03/11/25 11:51
FROM
AUGMENTIN
amoxicillin trihydrate Allergy Nausea / Verified 03/11/25 11:51
[From Augmentin] Vomiting
bupropion HCl Allergy 'made me Verified 03/11/25 11:51
[From Wellbutrin] ANGRY'
cefuroxime axetil Allergy Unknown Verified 03/11/25 11:51
[From Ceftin]
ciprofloxacin HCl Allergy Unknown Verified 03/11/25 11:51
[From Cipro]
codeine Allergy UPSET Verified 03/11/25 11:51
STOMACH
levofloxacin [From Levaquin] Allergy Unknown Verified 03/11/25 11:51
NSAIDS (Non-Steroidal Allergy avoids due Verified 03/11/25 11:51
Anti-Inflamma to ulcers
potassium clavulanate Allergy Nausea / Verified 03/11/25 11:51
[From Augmentin] Vomiting
molds and trees Allergy Head Uncoded 03/11/25 11:51
congestion
and
sneezing
poison pb Allergy Rash, Uncoded 03/11/25 11:51
itching
wheat Allergy Patient Uncoded 03/11/25 11:51
Denies
Home Medications
escitalopram oxalate 10 mg tablet 10 mg PO DAILY Mental Health/Anxiety 03/08/13
metformin 1,000 mg tablet 1,000 mg PO BID Diabetes 03/08/13
cinnamon bark 500 mg capsule (Cinnamon) 500 mg PO DAILY Supplement 02/27/22
apixaban 5 mg tablet (Eliquis) 5 mg PO BID Blood Clot Prevention/Tx 02/27/25
calcium 500 mg tablet 500 mg PO BID Supplement 02/27/25
[id number] 8 mg-folic 400 mcg-K 50 mcg-lutein 300 mcg tablet (Centrum Silver Women) 1 tab PO DAILY Supplement 02/27/25
amiodarone 200 mg tablet 200 mg PO BID Arrhythmia #14 tabs 03/06/25
amiodarone 200 mg tablet 200 mg PO DAILY Arrhythmia #30 tabs 03/06/25
aspirin 81 mg chewable tablet 81 mg PO DAILY Blood clot prevention/tx #3 tabs 03/06/25
atorvastatin 40 mg tablet 40 mg PO QPM High cholesterol #30 tabs 03/06/25
carvedilol 3.125 mg tablet (Coreg) 3.125 mg PO BID #60 tabs 03/06/25
clopidogrel 75 mg tablet 75 mg PO DAILY Blood clot prevention/tx #30 tabs 03/06/25
dapagliflozin propanediol 10 mg tablet 10 mg PO DAILY Diabetes #30 tabs 03/06/25
enalapril maleate 10 mg tablet 10 mg PO BID #60 tabs 03/06/25
furosemide 20 mg tablet 20 mg PO DAILY Heart disease/condition #30 tabs 03/06/25
glipizide 5 mg tablet 5 mg PO BID@0800,1700 Diabetes #60 tabs 03/06/25
insulin glargine 100 unit/mL subcutaneous solution (Lantus U-100 Insulin) 28 unit (0.28 mL) SC DAILY Diabetes #10 mL 03/06/25
spironolactone 25 mg tablet 25 mg PO DAILY Heart disease/condition #30 tabs 03/06/25
Review of Systems
-
History Source: Patient
A 12 point ROS was completed and negative except as noted: Yes
Constitutional: Reports No Symptoms
EENT: Reports See HPI
Respiratory: Reports No Symptoms
Cardiac: Reports No Symptoms
Abdomen/GI: Reports No Symptoms
: Reports No Symptoms
Musculoskeletal: Reports See HPI
Skin: Reports No Symptoms
Neurological: Reports No Symptoms
Endocrine: Reports No Symptoms
Hematologic/Lymphatic: Reports No Symptoms
Psych: Reports No Symptoms
Physical Exam
Vital Signs
Vital Signs
Temp Pulse Resp BP Pulse Ox
98.1 F 96 15 122/75 97
03/11/25 11:47 03/11/25 13:49 03/11/25 13:49 03/11/25 12:00 03/11/25 13:49
Physical Exam
General: Well Developed, Well Nourished, No Apparent Distress and Comfortable
HEENT: NormoCephalic, Anicteric, Moist mucous membranes, Atraumatic and PERRLA
Respiratory: Clear and Non Labored Respirations; No Accessory Resp Muscle Use
Cardiac: S1/S2, Regular Rhythm and Carotid Pulses (WNL); No Murmur, Rub, Gallop, Peripheral Edema, JVD or Carotid Bruits
GI: Soft, Non Tender, Non Distended and Normal Bowel Sounds; No Organomegaly
Musculoskeletal: No Clubbing, No Cyanosis and Other (RLE with wrapping and bandaging in place, immobilized)
Skin: Warm and Dry; No Rash or Jaundice
Neuro: AO x 3, Nonfocal/grossly intact and Cranial Nerves Intact; No Tremors
Psych: Calm
Laboratory Results
-
03/11/25 13:08
03/11/25 13:08
Laboratory Results
Total Bilirubin 0.9 mg/dl (0.2-1.3) 03/11/25 13:08
AST 26 U/L (14-36) 03/11/25 13:08
ALT 23 U/L (0-35) 03/11/25 13:08
Alkaline Phosphatase 66 U/L (38-126) 03/11/25 13:08
Data Reviewed
-
Diagnostic Radiology: Image Personally Visualized and interpreted and Report Reviewed by me
Lab Data: Labs Reviewed by me and Discussed with Physician (ED, ortho)
Impression/Plan
-
#Acute bimalleolar Duarte C ankle fracture
#Mechanical fall
#Disequilibrium with tinnitus
#Osteoporosis
-Likely a traumatic fall superimposed on osteoporosis with underlying chronic disequilibrium
-Patient had mechanical fall while in her laundry room, preceded by ringing in her ears; has chronic instability
-Question if she has underlying M�ni�re's disease with disequilibrium and tinnitus; low suspicion for syncopal process
-X-ray here showing unstable Duarte type C ankle fracture on the right, orthopedics consulted
-Will maintain nonweightbearing until orthopedics evaluation
-Provide PRN antiemetics and analgesics
-Fall precautions, check orthostatic vital signs and CK level
-NPO @ MN in event Ortho wants to proceed with surgery
-Monitor on telemetry for now, hold DOAC/DAPT/ACEi in case of OR
-If conservative approach/casting preferred will resume DOAC/DAPT/ACEi morning of 03/12
-Cardiology consulted for preoperative risk stratification
#Leukocytosis
-Likely reactive with fracture
-No obvious signs of infection, no fever
-Trend CBC and temperature curve off antibiotic
#HFrEF (LVEW35%)
#Ischemic cardiomyopathy
#CAD s/p LAD PCI (01/2025)
-Home GDMT with carvedilol, ACEi, MRA, SGLT2i, DAPT and statin following recent STEMI
-Currently on triple therapy with DAPT and Eliquis, planned 1 month after LAD PCI (02/24/25)
-Home regimen also includes Lasix 20 mg daily for diuresis
-Low suspicion for ACS, appears euvolemic
-Hold DAPT/ACEi as above for possible OR
#Atrial flutter
#Paroxysmal AF on Eliquis
-Home regimen includes carvedilol, amiodarone, and DOAC (amiodarone load to finish 03/13)
-ECG on arrival initially with AFL and heart rate 118, quickly converted to NSR
-Will monitor on telemetry for recurrence of AFL, continued on home regimen for now
-If A-flutter recurrence would have low threshold for CTI ablation with underlying cardiomyopathy
-Holding Eliquis as above in preparation of the OR
#GERD
-No known history of Dennis's esophagus or erosive esophagitis
-Home medications include no PPI or antihistamines
-Will monitor for symptoms here
#IDDM C/B neuropathy
-Poorly controlled with last A1c 8.6%; complicated by neuropathy and likely associated with ASCVD
-Home medications include Lantus 28 units daily, glipizide 5 mg BID, metformin 1 g BID, SGLT2i
-Will continue with Lantus and SGLT2i here, start ISS, hold glipizide and metformin
-Blood glucose 140-180 as goal
#Hypertension
-No known history of hypertensive systemic disease
-Currently on carvedilol, ACEI, MRA, SGLT2i as above for HFrEF
-Per patient her regimen has recently been de-escalated due to hypotension
-Blood pressure here stable, will monitor on current regimen
#Dyslipidemia
-Has history of ASCVD as above with LAD PCI recently
-Home medications include high intensity statin
-Most recent FLP with LDL 44; goal LDL < 55
#History of ectopic
#History of lumbosacral radiculopathy
#History of transient ischemic attack
Diet: Carb controlled, low-fat with n.p.o. at midnight in case of OR
DVT prophylaxis: SCDs
CODE STATUS: Full code
Discussed with orthopedics and cardiology. Will hold DAPT, WALDEMAR inhibitor, and Eliquis for now. Follow-up cardiology preoperative risk stratification
Family at bedside updated on plan
--- NOTE | 2025-03-11 16:36 | CON.CAR ---
Consultation
Consultation Request
Date/Time Consultation Requested: 03/11/2025 and 1600
Date/Time Consultation Performed: 03/11/2025 1630
Requesting Provider: Dr. Mena
Performing Provider: Kem Zavala MD
Reason for Consultation: Possible preoperative assessment
Medical History
-
History of Present Illness:
85-year-old woman with history of paroxysmal atrial fibrillation and prior cerebral hemorrhage/subarachnoid, prior TIA who was admitted to [facility] on February 26 with cardiogenic shock related to a anterior ST segment elevation PR with mid
LAD occlusion. EF 15-20% improved to 35-40% on follow-up echo March 02, peak troponin she required intra-aortic balloon placement, received a 3 x 18 mm Medtronic [place] stents, with no reflow and with 75-80% distal RCA stenosis. She had paroxysmal
atrial fibrillation with conversion to sinus rhythm on amiodarone. She was discharged on March 06, and fell at home today sustaining right ankle fracture. She was in her laundry room, did not trip, was not aware of atrial fibrillation or flutter, but
felt a 'buzzing' in her ear, was very lightheaded and knew she would fall. There was no true loss of consciousness. She has a right ankle by malleolus Duarte type C fracture with instability.
Past Medical History
Past Medical History: Arrhythmias (Paroxysmal atrial fibrillation on Eliquis, with recurrent A-fib January 2025 in the setting of PR, conversion to sinus rhythm on amiodarone), CAD (As above with anterolateral myocardial infarction February 26, 2025 with
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
prolapse, mild mitral regurgitation) and Other (Obstructive sleep apnea, osteonecrosis of jaw)
Past Surgical History: Gynecological (Ectopic ) and Orthopedic (Multiple epidurals, right shoulder total arthroplasty, total knee arthroplasties bilateral)
Social History
Tobacco: Former Smoker
Alcohol: None
Drug: None
Personal:
Living: Alone
Employment: Retired
Family History
Family History: Reviewed & Not Pertinent
Allergies / Home Medications
Allergy/AdvReac Type Severity Reaction Status Date / Time
amoxicillin Allergy NAUSEA Verified 03/11/25 11:51
FROM
AUGMENTIN
amoxicillin trihydrate Allergy Nausea / Verified 03/11/25 11:51
[From Augmentin] Vomiting
bupropion HCl Allergy 'made me Verified 03/11/25 11:51
[From Wellbutrin] ANGRY'
cefuroxime axetil Allergy Unknown Verified 03/11/25 11:51
[From Ceftin]
ciprofloxacin HCl Allergy Unknown Verified 03/11/25 11:51
[From Cipro]
codeine Allergy UPSET Verified 03/11/25 11:51
STOMACH
levofloxacin [From Levaquin] Allergy Unknown Verified 03/11/25 11:51
NSAIDS (Non-Steroidal Allergy avoids due Verified 03/11/25 11:51
Anti-Inflamma to ulcers
potassium clavulanate Allergy Nausea / Verified 03/11/25 11:51
[From Augmentin] Vomiting
molds and trees Allergy Head Uncoded 03/11/25 11:51
congestion
and
sneezing
poison pb Allergy Rash, Uncoded 03/11/25 11:51
itching
wheat Allergy Patient Uncoded 03/11/25 11:51
Denies
�Medication �Instructions �Recorded �Confirmed �Type
escitalopram oxalate 10 mg tablet 10 mg PO DAILY Mental 03/08/13 02/27/25 History
Health/Anxiety
metformin 1,000 mg tablet 1,000 mg PO BID Diabetes 03/08/13 02/27/25 History
cinnamon bark 500 mg capsule 500 mg PO DAILY Supplement 02/27/22 02/27/25 History
(Cinnamon)
apixaban 5 mg tablet (Eliquis) 5 mg PO BID Blood Clot 02/27/25 02/27/25 History
Prevention/Tx
calcium 500 mg tablet 500 mg PO BID Supplement 02/27/25 02/27/25 History
[id number] 8 mg-folic 400 1 tab PO DAILY Supplement 02/27/25 02/27/25 History
mcg-K 50 mcg-lutein 300 mcg tablet
(Centrum Silver Women)
amiodarone 200 mg tablet 200 mg PO BID Arrhythmia #14 tabs 03/06/25 Rx
amiodarone 200 mg tablet 200 mg PO DAILY Arrhythmia #30 tabs 03/06/25 Rx
aspirin 81 mg chewable tablet 81 mg PO DAILY Blood clot 03/06/25 Rx
prevention/tx #3 tabs
atorvastatin 40 mg tablet 40 mg PO QPM High cholesterol #30 03/06/25 Rx
tabs
carvedilol 3.125 mg tablet (Coreg) 3.125 mg PO BID #60 tabs 03/06/25 Rx
clopidogrel 75 mg tablet 75 mg PO DAILY Blood clot 03/06/25 Rx
prevention/tx #30 tabs
dapagliflozin propanediol 10 mg 10 mg PO DAILY Diabetes #30 tabs 03/06/25 Rx
tablet
enalapril maleate 10 mg tablet 10 mg PO BID #60 tabs 03/06/25 Rx
furosemide 20 mg tablet 20 mg PO DAILY Heart 03/06/25 Rx
disease/condition #30 tabs
glipizide 5 mg tablet 5 mg PO BID@0800,1700 Diabetes #60 03/06/25 Rx
tabs
insulin glargine 100 unit/mL 28 unit (0.28 mL) SC DAILY 03/06/25 Rx
subcutaneous solution (Lantus Diabetes #10 mL
U-100 Insulin)
spironolactone 25 mg tablet 25 mg PO DAILY Heart 03/06/25 Rx
disease/condition #30 tabs
Review of Systems
-
All other systems: Negative unless noted
Physical Exam
Vital Signs
Temp Pulse Resp BP Pulse Ox
36.7 C 80 16 102/78 98
03/11/25 11:47 03/11/25 15:45 03/11/25 15:45 03/11/25 15:00 03/11/25 15:45
Lab Results
03/11/25 13:08
03/11/25 13:08
Physical Exam
General: No Apparent Distress
HEENT: Normocephalic
Respiratory: Clear
Cardiac: Regular Rhythm and Other (No murmurs)
GI: Non Tender, Non Distended and Normal Bowel Sounds
Musculoskeletal: No Edema and Other (Right ankle is wrapped)
Skin: Warm
Neuro: AO x 3
Psych: Calm
Impression / Plan
-
Impression:
Right ankle fracture 03/11/2025, bimalleolar Duarte type C, unstable
Anterolateral STEMI 02/26/25 with cardiogenic shock
s/p RHC with CI 1.43, SVR 1839 02/27/25
s/p IABP placement 02/27/25, removed 03/01/2025ICM EF 15-20%
3 x 18 Medtronic [place] drug-eluting stent to mid LAD 02/26/2025
Acute HFrEF
CAD
acute anterolateral STEMI with 100% thrombotic occlusion of the mid LAD with 3.0 x 18 mm Medtronic [place] EULOGIO, complicated by no reflow treated with rounds of vasodilators 02/26/25
residual 75 to 80% distal RCA stenosis just proximal to the bifurcation of the RPDA and the RPL
History of paroxysmal atrial fibrillation on Eliquis
Afib with RVR starting 02/26/25 converted to sinus rhythm 03/26Chronic anticoagulation with Eliquis
Hypertension
Hyperlipidemia
Type 2 diabetes mellitus, [id number]
h/o TIA
Ambulatory dysfunction, using a cane
Prior falls
Former smoker
Lives alone independently
Echo 08/01/2022: EF 55-60%
Echo 02/26/2025: EF 15-20%, severe global hypokinesis with mid anteroseptal, mid anterior, mid septal, and apical akinesis, stage I diastolic dysfunction, mild MR, mod TR with PAP 54 mmHg
Echo 03/02/2025: EF 35-40%, mild cLVH, anterior, anteroseptal, and apical hypokinesis, false tendon in the LV apex, PFO present w/ L to R shunt, MAC, prolapse of posterior mitral leaflet present, mild MR, mild TR, estimated PAP 27 mmHg
Plan:
She presents with 8 by bimalleolar right ankle fracture that is stable and would likely be best suited to operative repair.
Furthermore, she was lightheaded when she fell, and it sounds as if she may have been presyncopal. She was in atrial flutter upon presentation and has spontaneously converted to normal sinus rhythm. Therefore it is conceivable that her atrial
arrhythmia was the cause of her fall. She may have had a postconversion pause. Unfortunately, she was in CAT scan when she converted to sinus rhythm so she was not on the monitor. It is also possible she had an episode of nonsustained VT
following her myocardial infarction but her EF has been improving. Her electrocardiogram was unremarkable. We will need to monitor her to see if she has symptomatic tachycardia arrhythmia or pauses that might necessitate pacemaker implantation.
She may need ambulatory monitoring after discharge or even implantation of an LINQ.
From the standpoint of her myocardial infarction she is doing surprisingly well. Her EF has improved and I suspect has improved further still. Will check follow-up echo on Thursday.
The major question is best approach for her ankle fracture, and the fact that she is currently on Eliquis and clopidogrel for her recent ST elevation PR and drug-eluting stent. Aspirin had been stopped 2 days ago. Will need to discuss with
orthopedic surgery as to the importance of surgical repair of her ankle. If her orthopedic outcome is much better with surgery, we could probably come up with a solution for her atrial flutter and recent PR/PCI that would permit surgery at
acceptable risk. If LV function is continuing to improve, risk of perioperative cardiac complications would be elevated but not prohibitive, with our major concern being her distal RCA stenosis. Risk of stent thrombosis would be low if we could
hold Eliquis, resume aspirin and limit interruption of clopidogrel.
For the present, she seems comfortable. We will reassess in the morning.
Data Reviewed
-
EKG: Tracing Personally Visualized and interpreted (Atrial flutter with 2 1 conduction variable heart block, nonspecific ST and T wave changes, borderline QT interval, prior anterior myocardial infarction)
Medical Tests (Nuc Med, Echo etc): Report Reviewed by me
Labs: Labs Reviewed by me (White count 13.8, hemoglobin 13.3, BUN/creatinine 35 and 1.1)
[2025-03-11 17:10] LABS: Creatine Phosphokinase 34 U/L (30-135)
--- NOTE | 2025-03-11 17:14 | EDRN ---
HERI Zavala at the bedside for cardiac consult
[2025-03-11 17:57] LABS: Glucose - Point of Care 102 mg/dl (70-99)
[2025-03-11] MEDS: NOVOLOG FLEXPEN-MODERATE RESISTANCE SC (18:35)
[2025-03-11] MEDS: LIPITOR 40 MG PO (18:36)
[2025-03-11] MEDS: PACERONE 200 MG PO (20:05)
[2025-03-11] MEDS: OSCAL CAL 500 500 MG PO (20:05)
[2025-03-11] MEDS: COREG 3.125 MG PO (20:06)
[2025-03-11 22:20] LABS: Glucose - Point of Care 105 mg/dl (70-99)
--- NOTE | 2025-03-11 22:48 | CON.ORTHO ---
Consultation
-
Date/Time Consultation Requested: 11MAR2025 14:53
Date/Time Consultation Performed: 11MAR2025 15:00
Requesting Provider: Mignon Marino
Performing Provider: Abelino Jackson MD
Reason for Consultation: right ankle fracture
Consultation - Orthopedics
History
Ms Cueto is a 85F with extensive cardiac history, including recent hospitalization for AL and placement of stent 02MAR2025, who presents to the emergency after sustaining a fall at her home. She reports hearing a buzzing in her ears prior to her
fall. She twisted her right ankle and due to the pain presented to the [facility] emergency room where xrays demonstrated a right ankle fracture. She was closed reduced by myself in the emergency department, after which she states her pain
was much improved. She denies numbness and tingling but states she has diabetic neuropathy. She takes metformin for her diabetes, as well as triple anticoagulation for her recent stent placement. She states she uses a cane at baseline when in
public, but recently has been using it at home sometimes. She presents with her granddaughter.
Allergies / Home Medications
Allergy/AdvReac Type Severity Reaction Status Date / Time
amoxicillin Allergy NAUSEA Verified 03/11/25 11:51
FROM
AUGMENTIN
amoxicillin trihydrate Allergy Nausea / Verified 03/11/25 11:51
[From Augmentin] Vomiting
bupropion HCl Allergy 'made me Verified 03/11/25 11:51
[From Wellbutrin] ANGRY'
cefuroxime axetil Allergy Unknown Verified 03/11/25 11:51
[From Ceftin]
ciprofloxacin HCl Allergy Unknown Verified 03/11/25 11:51
[From Cipro]
codeine Allergy UPSET Verified 03/11/25 11:51
STOMACH
levofloxacin [From Levaquin] Allergy Unknown Verified 03/11/25 11:51
NSAIDS (Non-Steroidal Allergy avoids due Verified 03/11/25 11:51
Anti-Inflamma to ulcers
potassium clavulanate Allergy Nausea / Verified 03/11/25 11:51
[From Augmentin] Vomiting
molds and trees Allergy Head Uncoded 03/11/25 11:51
congestion
and
sneezing
poison pb Allergy Rash, Uncoded 03/11/25 11:51
itching
�Medication �Instructions �Recorded
escitalopram oxalate 10 mg tablet 10 mg PO DAILY Mental 03/08/13
Health/Anxiety
metformin 1,000 mg tablet 1,000 mg PO BID Diabetes 03/08/13
cinnamon bark 500 mg capsule 500 mg PO DAILY Supplement 02/27/22
(Cinnamon)
apixaban 5 mg tablet (Eliquis) 5 mg PO BID Blood Clot 02/27/25
Prevention/Tx
amiodarone 200 mg tablet 200 mg PO BID Arrhythmia #14 tabs 03/06/25
atorvastatin 40 mg tablet 40 mg PO QPM High cholesterol #30 03/06/25
tabs
clopidogrel 75 mg tablet 75 mg PO DAILY Blood clot 03/06/25
prevention/tx #30 tabs
dapagliflozin propanediol 10 mg 10 mg PO DAILY Diabetes #30 tabs 03/06/25
tablet
furosemide 20 mg tablet 20 mg PO DAILY Heart 03/06/25
disease/condition #30 tabs
insulin glargine 100 unit/mL 28 unit (0.28 mL) SC DAILY 03/06/25
subcutaneous solution (Lantus Diabetes #10 mL
U-100 Insulin)
spironolactone 25 mg tablet 25 mg PO DAILY Heart 03/06/25
disease/condition #30 tabs
calcium carbonate 500 mg PO BID 03/11/25
carvedilol 3.125 mg tablet 3.125 mg PO BID 03/11/25
enalapril maleate 10 mg tablet 10 mg PO QPM 03/11/25
glipizide 5 mg tablet 5 mg PO BID Diabetes 03/11/25
therapeutic multivitamin 1 tab PO DAILY 03/11/25
Vital Signs / Lab Results
Temp Pulse Resp BP Pulse Ox
98.9 F 85 18 120/85 96
03/11/25 18:30 03/11/25 20:06 03/11/25 18:30 03/11/25 20:06 03/11/25 18:30
03/11/25 13:08
03/11/25 13:08
Physical exam:
AAOx3
Right lower extremity
externally rotated foot with obvious deformity and pressure on the medial skin from her ankle fracture
Sensation in tact, palpable DP/PT pulses, brisk capillary refill
Ankle ROM deferred, 5/5 EHL/FHL; able to straight leg raise without difficulty
Xray right ankle: distal fibular shaft fracture and medial malleolar fracture, likely Pronation Abduction variant
Assessment / Plan
Ms Cueto is an 85F with a right ankle fracture
Treatment options were discussed with the patient.Operative intervention may be the most reliable way to achieve and maintain optimal reduction and ensure the best functional outcome, but the patient's medical history make operative intervention
high risk. In order to proceed with surgery her anticoagulation would need to be stopped, which would place her at an unacceptably high risk of complication. The patient will be placed in a cast and should follow up as an outpatinet in two weeks for
repeat clinical and xray evaluation
[2025-03-12] VITALS (7 sets, daily range): BP systolic 85–123; BP diastolic 55–81; PULSE 86–107; BMI 27.4
[2025-03-12 06:03] LABS: Glucose - Point of Care 136 mg/dl (70-99)
[2025-03-12 06:09] LABS: % Basophils 0.6 % (0-2); % Eosinophils 1.4 % (0-6); % Immature Granulocytes 0.6 % (0-0.5); % Lymphocytes 14.2 % (20.5-51.1); % Monocytes 6.1 % (1.7-9.3); % Neutrophils 77.1 % (42.2-75.2); Absolute Basophils 0.1 10^3/uL (0-0.2); Absolute Eosinophils 0.2 10^3/uL (0-0.7); Absolute Immature Granulocytes 0.1 10^3/uL (0-0.05); Absolute Lymphocytes 2.3 10^3/uL (1.2-3.4); Absolute Neutrophils 12.6 10^3/uL (1.4-6.5); Hemoglobin 12.2 g/dL (12.0-16.0); Mean Corp Hgb Conc. 33.9 g/dL (33.0-37.0); Mean Corpuscular Hgb 31.4 pg (27.0-31.0); Mean Corpuscular Volume 92.8 fL (81.0-99.0); Mean Platelet Volume 9.8 fL (7.4-10.4); Nucleated Red Blood Cells % 0 %; Platelet Count 397 10^3/uL (130-400); Red Blood Cell Count 3.88 10^6/uL (4.20-5.40); Red Cell Dist. Width 13.2 % (11.5-14.5); White Blood Cell Count 16.3 10^3/uL (4.8-10.8)
[2025-03-12 06:33] LABS: Blood Urea Nitrogen 28 mg/dl (7-17); Calcium 10.2 mg/dl (8.4-10.2); Carbon Dioxide 21 mmol/L (22-30); Chloride 104 mmol/L (98-107); Estimated Creatinine Clearance 49 ml/min; Glucose 123 mg/dl (70-99); Magnesium 1.4 mg/dl (1.6-2.3); Potassium 4.8 mmol/L (3.5-5.1); Sodium 138 mmol/L (135-145); eGFR > 60.00
[2025-03-12] MEDS: LANTUS SC (09:23)
[2025-03-12] MEDS: NOVOLOG FLEXPEN-MODERATE RESISTANCE SC ×2 (09:23→11:55)
[2025-03-12] MEDS: FARXIGA 10 MG PO (09:34)
[2025-03-12] MEDS: PLAVIX 75 MG PO (09:34)
[2025-03-12] MEDS: LASIX 20 MG PO (09:34)
[2025-03-12] MEDS: LEXAPRO 10 MG PO (09:35)
[2025-03-12] MEDS: THERAGRAN 1 TABLET PO (09:35)
[2025-03-12] MEDS: PACERONE 200 MG PO ×2 (09:35→20:20)
[2025-03-12] MEDS: ALDACTONE 25 MG PO (09:35)
[2025-03-12] MEDS: ELIQUIS 5 MG PO ×2 (09:35→20:20)
[2025-03-12] MEDS: COREG 3.125 MG PO ×2 (09:35→20:20)
[2025-03-12] MEDS: OSCAL CAL 500 500 MG PO ×2 (09:35→20:20)
--- NOTE | 2025-03-12 10:56 | CM ---
Reviewed the chart notes and spoke with the patient and son at the bedside. The patient resides alone in a two story home with five steps to enter and three steps down to family room with railing. The patient reports using a cane outside the home.
The patient reports no VN/SNF in the past. The patient confirmed her pharmacy of choice is the [facility]. CM continues to be available to patient/family and is monitoring medical plan for needs at discharge.
Plan: Discharge plans will depend on the patient's progress. PT/OT evaluations pending.
--- NOTE | 2025-03-12 11:28 | W.PN.CARDCBS ---
Today's Communication / Plan
-
Agree with amiodarone 200 mg twice daily
Continue Eliquis and clopidogrel, no aspirin
Monitor on telemetry, looking for postconversion pauses that could have contributed to fall fracture
Impression / Plan
-
Impression:
Right ankle fracture 03/11/2025, bimalleolar Duarte type C, unstable
Anterolateral STEMI 02/26/25 with cardiogenic shock
s/p RHC with CI 1.43, SVR 1839 02/27/25
s/p IABP placement 02/27/25, removed 03/01/2025ICM EF 15-20%
3 x 18 Medtronic [place] drug-eluting stent to mid LAD 02/26/2025
Acute HFrEF
CAD
acute anterolateral STEMI with 100% thrombotic occlusion of the mid LAD with 3.0 x 18 mm Medtronic [place] EULOGIO, complicated by no reflow treated with rounds of vasodilators 02/26/25
residual 75 to 80% distal RCA stenosis just proximal to the bifurcation of the RPDA and the RPL
History of paroxysmal atrial fibrillation on Eliquis
Afib with RVR starting 02/26/25 converted to sinus rhythm 03/26Chronic anticoagulation with Eliquis
Hypertension
Hyperlipidemia
Type 2 diabetes mellitus, [id number]
h/o TIA
Ambulatory dysfunction, using a cane
Prior falls
Former smoker
Lives alone independently
Echo 08/01/2022: EF 55-60%
Echo 02/26/2025: EF 15-20%, severe global hypokinesis with mid anteroseptal, mid anterior, mid septal, and apical akinesis, stage I diastolic dysfunction, mild MR, mod TR with PAP 54 mmHg
Echo 03/02/2025: EF 35-40%, mild cLVH, anterior, anteroseptal, and apical hypokinesis, false tendon in the LV apex, PFO present w/ L to R shunt, MAC, prolapse of posterior mitral leaflet present, mild MR, mild TR, estimated PAP 27 mmHg
Plan:
She is in atrial fibrillation with a slightly rapid ventricular response, asymptomatic unaware that she is in A-fib. No evidence of heart failure, chest pain, etc.
Cardiac management is much simpler hide by the fact she is not a surgical candidate. Continue clopidogrel and Eliquis as time.
From my standpoint, the major issue is her atrial fibrillation, and it is conceivable her fall and fracture was caused by a postconversion pause. We know she converted to sinus rhythm here in the hospital before going back in atrial fibrillation,
but unfortunately she was not on telemetry at that moment so we do not know if a pause recurred. For now, continue amiodarone. We may need to uptitrate carvedilol for better rate control, though blood pressure is relatively low and this may limit
our ability to increase her beta-danny. I am not anxious to cardiovert as she has demonstrated that she goes in and out atrial fibrillation.
Will supplement magnesium. Amiodarone has been doubled to 200 mg twice daily which is reasonable. Otherwise, no changes to regimen.
Clinical summary: 85-year-old woman with history of paroxysmal atrial fibrillation and prior cerebral hemorrhage/subarachnoid, prior TIA who was admitted to [facility] on February 26 with cardiogenic shock related to a anterior ST segment
elevation [place] with mid LAD occlusion. EF 15-20% improved to 35-40% on follow-up echo March 02, peak troponin she required intra-aortic balloon placement, received a 3 x 18 mm Medtronic [place] stents, with no reflow and with 75-80% distal RCA stenosis.
She had paroxysmal atrial fibrillation with conversion to sinus rhythm on amiodarone. She was discharged on March 06, and fell at home today sustaining right ankle fracture. She was in her laundry room, did not trip, was not aware of atrial
fibrillation or flutter, but felt a 'buzzing' in her ear, was very lightheaded and knew she would fall. There was no true loss of consciousness. She has a right ankle by malleolus Duarte type C fracture with instability.
Progress Note - Delinquent Tax [employer]or
Subjective
Date of Service: March 12, 2025:
She offers no complaints, has been seen by Ortho, plan is to cast for 6 weeks and reassess, so no operative intervention is planned. She remains in atrial fibrillation/flutter. Nurses states she was in sinus rhythm but this is not apparent on
telemetry. She was in sinus rhythm and atrial fibrillation flutter in the ER, but was off monitor when she converted to sinus rhythm before going back into atrial fibrillation. Currently receiving magnesium for mag level of 1.4.
PMH/PSH: Anterior [place] February 26 with cardiogenic shock, treated with LAD PCI, initial EF 15 to 20%, 35-40% at discharge, 75 to 80% distal RCA stenosis, prior history of paroxysmal atrial fibrillation, recurrence January 2025 started on amiodarone,
history of TIA with aphasia 2021, GERD, hypertension, hypercholesterolemia, diabetes, mitral valve prolapse with mild MR, sleep apnea, osteonecrosis of jaw, ectopic , multiple epidurals, total knees and right shoulder arthroplasty
Medications: Amiodarone 200 mg twice daily atorvastatin 40 mg a day, carvedilol 3.125 twice daily, Farxiga 10 mg a day, Lexapro 10 mg a day, furosemide 20 mg a day, spironolactone 25 mg a day, aspirin on hold, clopidogrel 75 mg a day, apixaban 5 mg
twice daily, enalapril 10 mg daily, Lantus insulin
114/75, pulse 66, weight is 84.1 kg, no distress, head neck exam unremarkable, lungs are relatively clear, irregular rate and rhythm without obvious murmurs, right leg casted
Hemoglobin 12.2, white count 16, platelets 397, BUN/creatinine 28 and 0.9, CO2 21, magnesium 1.4
Objective
Labs:
03/12/25 04:37
03/12/25 04:37
Labs
Hgb 12.2 g/dL (12.0-16.0) 03/12/25 04:37
Hct 36.0 % (37.0-47.0) L 03/12/25 04:37
Plt Count 397 10^3/uL (130-400) 03/12/25 04:37
Sodium 138 mmol/L (135-145) 03/12/25 04:37
Potassium 4.8 mmol/L (3.5-5.1) 03/12/25 04:37
BUN 28 mg/dl (7-17) H 03/12/25 04:37
Creatinine 0.9 mg/dL (0.6-1.0) 03/12/25 04:37
Glucose 123 mg/dl (70-99) H 03/12/25 04:37
Vital Signs and I&O:
Vital Signs
Temp Pulse Resp BP Pulse Ox
37.3 C 66 18 114/75 98
03/12/25 11:15 03/12/25 11:15 03/12/25 11:15 03/12/25 11:15 03/12/25 11:15
Vital Signs
Temp Pulse Resp BP Pulse Ox
37.3 C 66 18 114/75 98
03/12/25 11:15 03/12/25 11:15 03/12/25 11:15 03/12/25 11:15 03/12/25 11:15
Intake & Output
03/10/25 03/11/25 03/12/25 03/13/25
07:59 07:59 07:59 07:59
Intake Total 960 / 960
Balance 960 / 960
Physical Exam
Physical Exam
See above
[2025-03-12 11:44] LABS: Glucose - Point of Care 200 mg/dl (70-99)
[2025-03-12] MEDS: MAGNESIUM SULFATE 50 IV ×2 (12:03→13:39)
[2025-03-12] MEDS: VASOTEC 10 MG PO (12:04)
--- NOTE | 2025-03-12 12:40 | W.PN.HOSP.TC ---
Today's Communication/Plan
-
Resumed home Eliquis, Plavix, enalapril
Telemetry
Conservative therapy for ankle fracture
As needed analgesics
PT/OT
Assessment / Plan
Assessment / Plan
#Acute bimalleolar Duarte C ankle fracture
#Osteoporosis
-Likely a traumatic fall superimposed on osteoporosis with underlying chronic disequilibrium
-Patient had mechanical fall while in her laundry room, preceded by ringing in her ears; has chronic instability
-Question if she has underlying M�ni�re's disease with disequilibrium and tinnitus; low suspicion for syncopal process
-X-ray here showing unstable Duarte type C ankle fracture on the right, orthopedics consulted
-Due to recent LAD STEMI and PCI, distal RCA lesion surgical correction was deemed too high risk
-Orthopedics planning for conservative approach, cast placed, will follow-up in office with orthopedics in 2
-Resumed DOAC, Plavix, WALDEMAR inhibitor on 03/12
-Provide PRN antiemetics and analgesics
-PT consult and OOB
#Atrial flutter
#Paroxysmal AF on Eliquis
-Home regimen includes carvedilol, amiodarone, and DOAC (amiodarone load to finish 03/13)
-ECG on arrival initially with AFL and heart rate 118, quickly converted to NSR after arrival
-As of morning 03/12 she remains in atrial fibrillation with RVR and heart rate near 110/min
-Continue to monitor on telemetry; consider increase in carvedilol versus DCCV if worsening
-If AFL recurrent would consider CTI ablation with underlying cardiomyopathy
-Resumed Eliquis 03/12 as no OR plan
#Leukocytosis
-Likely reactive with fracture though does have intermittently high WBC recently
-No obvious signs of infection, no fevers; WBC here 13.8-16.3
-Trend CBC and temperature curve off antibiotic
#HFrEF (LVEW35%)
#Ischemic cardiomyopathy
#CAD s/p LAD PCI (01/2025)
-Home GDMT with carvedilol, ACEi, MRA, SGLT2i, DAPT and statin following recent STEMI
-Currently on Plavix and Eliquis; s/p triple therapy with DAPT and Eliquis
-Home regimen also includes Lasix 20 mg daily for diuresis
-Low suspicion for ACS, appears euvolemic
-Resumed home Plavix and ACEi as no OR planned
#GERD
-No known history of Dennis's esophagus or erosive esophagitis
-Home medications include no PPI or antihistamines
-Will monitor for symptoms here
#IDDM C/B neuropathy
-Poorly controlled with last A1c 8.6%; complicated by neuropathy and likely associated with ASCVD
-Home medications include Lantus 28 units daily, glipizide 5 mg BID, metformin 1 g BID, SGLT2i
-Will continue with Lantus and SGLT2i here, start ISS, hold glipizide and metformin
-Blood glucose 140-180 as goal
#Hypertension
-No known history of hypertensive systemic disease
-Currently on carvedilol, ACEI, MRA, SGLT2i as above for HFrEF
-Per patient her regimen has recently been de-escalated due to hypotension
-Blood pressure here stable, will monitor on current regimen
#Dyslipidemia
-Has history of ASCVD as above with LAD PCI recently
-Home medications include high intensity statin
-Most recent FLP with LDL 44; goal LDL < 55
#History of ectopic
#History of lumbosacral radiculopathy
#History of transient ischemic attack
Diet: Carb controlled, low-fat
DVT prophylaxis: SCDs
CODE STATUS: Full code
Anticipated Discharge: 24 - 48 hours
Subjective/Interval History
-
Date of Service: March 12, 2025
Objective Data
-
Labs:
Laboratory Results
03/12/25
04:37
WBC 16.3 H
Hgb 12.2
Hct 36.0 L
Plt Count 397
Sodium 138
Potassium 4.8
Chloride 104
Carbon Dioxide 21 L
BUN 28 H
Creatinine 0.9
Glucose 123 H
Calcium 10.2
Vital Signs:
Vital Signs
Temp Pulse Resp BP Pulse Ox
99.2 F 108 18 116/74 98
03/12/25 11:15 03/12/25 12:04 03/12/25 11:15 03/12/25 12:04 03/12/25 11:15
I&O
03/11/25 03/12/25 03/13/25
06:59 06:59 06:59
Intake Total 960 / 960
Balance 960 / 960
--- NOTE | 2025-03-12 16:21 | PTCARENOTE ---
Patient unable to tolerate standing orthostatic VS- see ortho VS flowsheet for further details
[2025-03-12 16:35] LABS: Glucose - Point of Care 220 mg/dl (70-99)
[2025-03-12] MEDS: LIPITOR 40 MG PO (16:42)
[2025-03-12] MEDS: NOVOLOG FLEXPEN-MODERATE RESISTANCE 3 UNITS SC (16:50)
[2025-03-12] MEDS: NSS 1000 IV (18:02)
[2025-03-12 22:22] LABS: Glucose - Point of Care 222 mg/dl (70-99)
[2025-03-13] VITALS (8 sets, daily range): BP systolic 93–115; BP diastolic 54–78; PULSE 80–83; O2SAT 96; BMI 27.8
[2025-03-13 08:08] LABS: Glucose - Point of Care 145 mg/dl (70-99)
[2025-03-13] MEDS: NOVOLOG FLEXPEN-MODERATE RESISTANCE SC (08:37)
[2025-03-13] MEDS: LANTUS 0.28 UNITS SC (08:38)
[2025-03-13] MEDS: OSCAL CAL 500 500 MG PO ×2 (08:38→20:13)
[2025-03-13] MEDS: ELIQUIS 5 MG PO ×2 (08:38→20:13)
[2025-03-13] MEDS: LASIX 20 MG PO (08:39)
[2025-03-13] MEDS: COREG 3.125 MG PO ×2 (08:39→20:13)
[2025-03-13] MEDS: FARXIGA 10 MG PO (08:39)
[2025-03-13] MEDS: PLAVIX 75 MG PO (08:39)
[2025-03-13] MEDS: VASOTEC 10 MG PO (08:39)
[2025-03-13] MEDS: THERAGRAN 1 TABLET PO (08:40)
[2025-03-13] MEDS: ALDACTONE 25 MG PO (08:40)
[2025-03-13] MEDS: PACERONE 200 MG PO (08:40)
[2025-03-13] MEDS: LEXAPRO 10 MG PO (08:42)
[2025-03-13 08:52] LABS: % Basophils 0.8 % (0-2); % Eosinophils 1.2 % (0-6); % Immature Granulocytes 0.6 % (0-0.5); % Lymphocytes 16.1 % (20.5-51.1); % Monocytes 7.6 % (1.7-9.3); % Neutrophils 73.7 % (42.2-75.2); Absolute Basophils 0.1 10^3/uL (0-0.2); Absolute Eosinophils 0.2 10^3/uL (0-0.7); Absolute Immature Granulocytes 0.1 10^3/uL (0-0.05); Absolute Lymphocytes 2.2 10^3/uL (1.2-3.4); Absolute Neutrophils 9.8 10^3/uL (1.4-6.5); Hematocrit 36.2 % (37.0-47.0); Hemoglobin 12.2 g/dL (12.0-16.0); Mean Corp Hgb Conc. 33.7 g/dL (33.0-37.0); Mean Corpuscular Hgb 31.2 pg (27.0-31.0); Mean Corpuscular Volume 92.6 fL (81.0-99.0); Mean Platelet Volume 9.6 fL (7.4-10.4); Nucleated Red Blood Cells % 0 %; Platelet Count 377 10^3/uL (130-400); Red Blood Cell Count 3.91 10^6/uL (4.20-5.40); Red Cell Dist. Width 13.4 % (11.5-14.5); White Blood Cell Count 13.3 10^3/uL (4.8-10.8)
--- NOTE | 2025-03-13 08:53 | VNURNOTE ---
Chart reviewed. [facility] is [facility]. Will continue to follow hospital course and DC plans.
[2025-03-13 09:34] LABS: Blood Urea Nitrogen 26 mg/dl (7-17); Calcium 9.6 mg/dl (8.4-10.2); Carbon Dioxide 25 mmol/L (22-30); Chloride 107 mmol/L (98-107); Estimated Creatinine Clearance 49 ml/min; Glucose 157 mg/dl (70-99); Potassium 5.6 mmol/L (3.5-5.1); Sodium 139 mmol/L (135-145); eGFR > 60.00
[2025-03-13] MEDS: STERILE WATER FOR INJECTION 10 ML IV (10:32)
[2025-03-13] MEDS: ROCEPHIN 1000 MG IV (10:32)
[2025-03-13] MEDS: FLUSH (NSS) 2 FLUSH IV (10:33)
[2025-03-13 11:40] LABS: Glucose - Point of Care 216 mg/dl (70-99)
[2025-03-13] MEDS: TYLENOL 650 MG PO (11:55)
[2025-03-13] MEDS: NOVOLOG FLEXPEN-MODERATE RESISTANCE 3 UNITS SC ×2 (11:56→18:23)
--- NOTE | 2025-03-13 12:43 | W.PN.CARDCBS ---
Addendum entered and electronically signed by Kem Zavala MD 03/13/25 13:57:
Clinical summary: 85-year-old woman with history of paroxysmal atrial fibrillation and prior cerebral hemorrhage/subarachnoid, prior TIA who was admitted to [facility] on February 26 with cardiogenic shock related to a anterior ST segment
elevation [place] with mid LAD occlusion. EF 15-20% improved to 35-40% on follow-up echo March 02, peak troponin she required intra-aortic balloon placement, received a 3 x 18 mm Medtronic Orlando stents, with no reflow and with 75-80% distal RCA stenosis.
She had paroxysmal atrial fibrillation with conversion to sinus rhythm on amiodarone. She was discharged on March 06, and fell at home today sustaining right ankle fracture. She was in her laundry room, did not trip, was not aware of atrial
fibrillation or flutter, but felt a 'buzzing' in her ear, was very lightheaded and knew she would fall. There was no true loss of consciousness. She has a right ankle by malleolus Duarte type C fracture with instability. Orthopedics has elected to
manage medically and she is currently casted.
She has converted to sinus rhythm, did not have a postconversion pause at the time of conversion. No ventricular arrhythmias seen.
Current meds: Amiodarone 200 mg twice daily, atorvastatin 40 mg at bedtime, calcium, carvedilol 3.125 twice daily, dapagliflozin 10 mg a day, Lexapro 10 mg a day, furosemide 20 mg daily, multivitamins, spironolactone 25 mg a day, Lantus, clopidogrel
75 mg a day, enalapril 10 mg daily, apixaban 5 mg twice daily
111/58, pulse 88, respirate 16, afebrile, weight is 85.4, Up 1.3 kg, intake and output +1.4 L, lungs are clear, regular rate and rhythm,No significant murmur, JVD okay, right leg casted, not much edema on the left
Hemoglobin is 12.2 white count is 13.3, BMP is pending, yesterday BUN and creatinine were 20 and 0.9 with potassium 4.8, magnesium was 1.4, got 2 g magnesium yesterday
Telemetry: Back in sinus rhythm, she did not have a postconversion pause.
Impression:
Bimalleolar right ankle fracture
Recurrent paroxysmal atrial fibrillation/flutter
Anterolateral ST segment elevation NJ January 2025 with cardiogenic shock and improved EF following LAD PCI, 35-40%
Acute HFrEF, now improved
Near syncope, suspect orthostasis
Other diagnoses as below
Plan:
She is back in sinus rhythm on amiodarone. When she converted from A-fib to sinus rhythm she did not have a post conversion pause, so this is likely not the cause of her lightheadedness that led to a fall.
She is relatively hypotensive, on Lasix and on a regimen for LV dysfunction/CHF. It may be that her ventricle is recovering she does not need diuretics and hypotension could have been a contributor to her fall. Will decrease enalapril to 5 mg
daily, spironolactone to 12.5 mg daily and will hold furosemide, possibly discontinue. Check proBNP.
Continue clopidogrel and Eliquis for her recent PCI. No aspirin. Hemoglobin is stable.
From cardiac standpoint, okay to begin discharge planning. We should probably arrange for a 2-week monitor at discharge to exclude arrhythmia as the cause of her fall.
Original Note:
Today's Communication / Plan
-
Follow-up echo ordered
Continue Eliquis and Plavix
Advanced GDMT for heart failure as blood pressure allows
Will need monitor placed prior to discharge
Impression / Plan
-
PCP: Mukund Welch
Scuba Diver: Kem Zavala
Impression:
Right ankle fracture 03/11/2025, bimalleolar Duarte type C, unstable
Anterolateral STEMI 02/26/25 with cardiogenic shock
s/p RHC with CI 1.43, SVR 1839 02/27/25
s/p IABP placement 02/27/25, removed 03/01/2025
s/p 3 x 18 Medtronic Dangelo drug-eluting stent to mid LAD 02/26/2025
ICM EF 15-20%
Acute HFrEF 01/2025
CAD
acute anterolateral STEMI with 100% thrombotic occlusion of the mid LAD with 3.0 x 18 mm Medtronic Dangelo EULOGIO, complicated by no reflow treated with rounds of vasodilators 02/26/25
residual 75 to 80% distal RCA stenosis just proximal to the bifurcation of the RPDA and the RPL
History of paroxysmal atrial fibrillation on Eliquis
Afib with RVR starting 02/26/25 converted to sinus rhythm
Chronic anticoagulation with Eliquis
Hypertension
Hyperlipidemia
Type 2 diabetes mellitus, [id number]
h/o TIA
Ambulatory dysfunction, using a cane
Prior falls
Former smoker
Lives alone independently
Echo 08/01/2022: EF 55-60%
Echo 02/26/2025: EF 15-20%, severe global hypokinesis with mid anteroseptal, mid anterior, mid septal, and apical akinesis, stage I diastolic dysfunction, mild MR, mod TR with PAP 54 mmHg
Echo 03/02/2025: EF 35-40%, mild cLVH, anterior, anteroseptal, and apical hypokinesis, false tendon in the LV apex, PFO present w/ L to R shunt, MAC, prolapse of posterior mitral leaflet present, mild MR, mild TR, estimated PAP 27 mmHg
Plan:
-Paroxysmal atrial fibrillation spontaneously converted to sinus rhythm. Per review of telemetry no conversion pauses noted. Continue amiodarone 200 mg twice daily x 2 weeks then 200 mg daily after. Continue Eliquis and Plavix.
- Coronary artery disease with recent STEMI 02/26/2025 complicated by cardiogenic shock and ischemic cardiomyopathy. Status post mid LAD EULOGIO continue Eliquis and Plavix.
- Patient has known residual disease of RCA just proximal to bifurcation of RPDA and posterior lateral. Continue aggressive medical management. Could consider staged intervention if patient should have recurrent angina symptoms
- Ischemic cardiomyopathy. Continue GDMT with Coreg, Aldactone, enalapril, carvedilol and Farxiga. Of note enalapril and Aldactone reduced doses this admission due to hypotension.
- Follow-up echo has been ordered
- Would have patient wear 1 week outpatient monitor upon discharge given PAF and recent fall.
- Right ankle fracture, no surgery planned. Patient in cast.
Clinical summary: 85-year-old woman with history of paroxysmal atrial fibrillation and prior cerebral hemorrhage/subarachnoid, prior TIA who was admitted to [facility] on February 26 with cardiogenic shock related to a anterior ST segment
elevation [place] with mid LAD occlusion. EF 15-20% improved to 35-40% on follow-up echo March 02, peak troponin she required intra-aortic balloon placement, received a 3 x 18 mm Medtronic Orlando stents, with no reflow and with 75-80% distal RCA stenosis.
She had paroxysmal atrial fibrillation with conversion to sinus rhythm on amiodarone. She was discharged on March 06, and fell at home today sustaining right ankle fracture. She was in her laundry room, did not trip, was not aware of atrial
fibrillation or flutter, but felt a 'buzzing' in her ear, was very lightheaded and knew she would fall. There was no true loss of consciousness. She has a right ankle by malleolus Duarte type C fracture with instability.
Progress Note - Scuba Diver
Subjective
Date of Service: March 13, 2025
Patient seen and examined. Patient sitting comfortably in chair. Reports she is happy to be out of bed. Denies any cardiac symptoms including chest pain, shortness of breath, dizziness, lightheadedness, palpitations, edema, orthopnea or PND
Objective
Labs:
03/13/25 08:24
03/13/25 08:24
Labs
Hgb 12.2 g/dL (12.0-16.0) 03/13/25 08:24
Hct 36.2 % (37.0-47.0) L 03/13/25 08:24
Plt Count 377 10^3/uL (130-400) 03/13/25 08:24
Sodium 139 mmol/L (135-145) 03/13/25 08:24
Potassium 5.6 mmol/L (3.5-5.1) H 03/13/25 08:24
BUN 26 mg/dl (7-17) H 03/13/25 08:24
Creatinine 0.9 mg/dL (0.6-1.0) 03/13/25 08:24
Glucose 157 mg/dl (70-99) H 03/13/25 08:24
Vital Signs and I&O:
Vital Signs
Temp Pulse Resp BP Pulse Ox
98.3 F 87 16 105/59 96
03/13/25 11:33 03/13/25 11:33 03/13/25 11:33 03/13/25 11:33 03/13/25 11:33
Vital Signs
Temp Pulse Resp BP Pulse Ox
98.3 F 87 16 105/59 96
03/13/25 11:33 03/13/25 11:33 03/13/25 11:33 03/13/25 11:33 03/13/25 11:33
Intake & Output
03/11/25 03/12/25 03/13/25 03/14/25
06:59 06:59 06:59 06:59
Intake Total 960 / 960 1800 / 1800
Output Total 400 / 400
Balance 960 / 960 1400 / 1400
Physical Exam
Physical Exam
GEN: No distress, awake, Ox3
HEENT: supple, anicteric, mmm
LUNGS: CTA, no wheezes/rales
CV: Reg, S1/S2, no murmur, rub or gallop
ABD: soft, BS+, NT/ND
EXT: No edema on left lower extremity. Right lower extremity in cast up to knee
NEURO: Gross non-focal
SKIN: No rash, warm, dry, pink
--- NOTE | 2025-03-13 15:04 | CM ---
CM following re: discharge planning.
Reviewed pt's chart, met with pt.
Pt is with history of paroxysmal atrial fibrillation and prior cerebral hemorrhage/subarachnoid, prior TIA, admitted to with acute bimalleolar Duarte C ankle fracture. Per Ortho, pt is not a surgical candidate.
PT and OT evaluations noted - acute rehab level of care recommended. Pt is aware, expressed her agreement and pt requested [facility].
A referral to [facility] made.
D/C plan: [facility] when medically stable.
CM will follow with discharge plan updates as hospitalization progresses
--- NOTE | 2025-03-13 16:09 | W.PN.HOSP.TC ---
Today's Communication/Plan
-
PT
Rehab placement
Complains of dysuria
Recent urine culture with E. coli.
Noted with mild leukocytosis.
Repeat urine culture
Empiric ceftriaxone.
Hyperkalemia.
Monitor for hypotension
Cardiology input appreciated
Last dose of Lasix given on 03/13 and currently on hold
Follow BMP closely
May need to hold WALDEMAR/Aldactone if persistent worsening hyperkalemia
Repeat echocardiogram pending
Assessment / Plan
Assessment / Plan
#Acute bimalleolar Duarte C ankle fracture
#Osteoporosis
-Likely a traumatic fall superimposed on osteoporosis with underlying chronic disequilibrium
-Patient had mechanical fall while in her laundry room, preceded by ringing in her ears; has chronic instability
-Question if she has underlying M�ni�re's disease with disequilibrium and tinnitus; low suspicion for syncopal process
-X-ray here showing unstable Duarte type C ankle fracture on the right, orthopedics consulted
-Due to recent LAD STEMI and PCI, distal RCA lesion surgical correction was deemed too high risk
-Orthopedics planning for conservative approach, cast placed, will follow-up in office with orthopedics in 2
-Resumed DOAC, Plavix, WALDEMAR inhibitor on 03/12
-Provide PRN antiemetics and analgesics
-PT consult and OOB
#Atrial flutter
#Paroxysmal AF on Eliquis
-Home regimen includes carvedilol, amiodarone, and DOAC (amiodarone load to finish 03/13)
- Converted to sinus rhythm.
Amiodarone increased to 200 mg twice daily
Continue Coreg
Continue anticoagulation with Eliquis
#HFrEF (LVEW35%)
#Ischemic cardiomyopathy
#CAD s/p LAD PCI (01/2025)
-Home GDMT with carvedilol, ACEi, MRA, SGLT2i, DAPT and statin following recent STEMI
BP remains marginal.
Noted with hyperkalemia on 03/14
Received Lasix on 03/14
Follow BMP and hemodynamics closely.
Consider to hold WALDEMAR and potassium sparing diuretics
Repeat echocardiogram to reassess LV function pending on 03/13
Complains of dysuria.
Has mild leukocytosis
Afebrile.
Urine culture over recent admission with E. coli.
Will repeat UA and cultures
Empiric ceftriaxone initiated on 03/13
#GERD
-No known history of Dennis's esophagus or erosive esophagitis
-Home medications include no PPI or antihistamines
-Will monitor for symptoms here
#IDDM C/B neuropathy
-Poorly controlled with last A1c 8.6%; complicated by neuropathy and likely associated with ASCVD
-Home medications include Lantus 28 units daily, glipizide 5 mg BID, metformin 1 g BID, SGLT2i
-Will continue with Lantus and SGLT2i here, start ISS, hold glipizide and metformin
-Blood glucose 140-180 as goal
#Hypertension
-No known history of hypertensive systemic disease
-Currently on carvedilol, ACEI, MRA, SGLT2i as above for HFrEF
-Per patient her regimen has recently been de-escalated due to hypotension
-Blood pressure here stable, will monitor on current regimen
#Dyslipidemia
-Has history of ASCVD as above with LAD PCI recently
-Home medications include high intensity statin
-Most recent FLP with LDL 44; goal LDL < 55
#History of ectopic
#History of lumbosacral radiculopathy
#History of transient ischemic attack
Diet: Carb controlled, low-fat
DVT prophylaxis: SCDs
CODE STATUS: Full code
Anticipated Discharge: 24 - 48 hours
Subjective/Interval History
-
Date of Service: March 13, 2025
Objective Data
-
Labs:
Laboratory Results
03/13/25
08:24
WBC 13.3 H
Hgb 12.2
Hct 36.2 L
Plt Count 377
Sodium 139
Potassium 5.6 H
Chloride 107
Carbon Dioxide 25
BUN 26 H
Creatinine 0.9
Glucose 157 H
Calcium 9.6
Vital Signs:
Vital Signs
Temp Pulse Resp BP Pulse Ox
98.1 F 82 16 99/55 98
03/13/25 15:00 03/13/25 15:00 03/13/25 15:00 03/13/25 15:00 03/13/25 15:00
I&O
03/12/25 03/13/25 03/14/25
06:59 06:59 06:59
Intake Total 960 / 960 1800 / 1800
Output Total 400 / 400
Balance 960 / 960 1400 / 1400
Physical Exam
-
General: Comfortable
HEENT: Normocephalic and Atraumatic
Respiratory: Clear to Auscultation
Cardiac: Irregular Rhythm
GI: Nondistended
Musculoskeletal: No Edema
Neuro: AO x 3
Psych: Calm
[2025-03-13 16:29] LABS: Glucose - Point of Care 208 mg/dl (70-99)
[2025-03-13 17:01] LABS: Urine Albumin 1+ (Neg - Trace); Urine Bilirubin Negative (Negative); Urine Character Cloudy (Clear); Urine Color Yellow; Urine Glucose 4+ (Negative); Urine Ketone 2+ (Negative); Urine Leukocyte 2+ (Negative); Urine Nitrite Negative (Negative); Urine Occult Blood 4+ (Negative); Urine Urobilinogen Negative (Neg - 1+)
[2025-03-13 17:12] LABS: Urine Squamous Cell 0-2 /LPF (Few)
[2025-03-13 17:13] LABS: Urine Bacteria Many (Negative); Urine Red Blood Cell 0-2 /HPF (0-2); Urine Yeast Moderate (Negative)
[2025-03-13] MEDS: LIPITOR 40 MG PO (18:23)
[2025-03-13 21:46] LABS: Glucose - Point of Care 106 mg/dl (70-99)
[2025-03-14 03:05] VITALS: BP 115/69
[2025-03-14 06:00] VITALS: BMI 27.4
[2025-03-14 06:33] LABS: NT-proBNP 4530 pg/ml
[2025-03-14 07:05] VITALS: BP 113/69
[2025-03-14 07:14] LABS: Glucose - Point of Care 116 mg/dl (70-99)
[2025-03-14] MEDS: OSCAL CAL 500 500 MG PO ×2 (08:21→20:00)
[2025-03-14] MEDS: COREG 3.125 MG PO ×2 (08:21→19:59)
[2025-03-14] MEDS: THERAGRAN 1 TABLET PO (08:21)
[2025-03-14] MEDS: LEXAPRO 10 MG PO (08:21)
[2025-03-14] MEDS: VASOTEC 5 MG PO (08:21)
[2025-03-14] MEDS: ALDACTONE 12.5 MG PO (08:21)
[2025-03-14] MEDS: ELIQUIS 5 MG PO ×2 (08:21→20:00)
[2025-03-14] MEDS: PLAVIX 75 MG PO (08:21)
[2025-03-14] MEDS: FARXIGA 10 MG PO (08:21)
[2025-03-14] MEDS: NOVOLOG FLEXPEN-MODERATE RESISTANCE SC (08:22)
[2025-03-14] MEDS: LANTUS 0.28 UNITS SC (08:22)
[2025-03-14 09:32] LABS: Blood Urea Nitrogen 23 mg/dl (7-17); Calcium 9.8 mg/dl (8.4-10.2); Carbon Dioxide 25 mmol/L (22-30); Chloride 108 mmol/L (98-107); Estimated Creatinine Clearance 55 ml/min; Glucose 122 mg/dl (70-99); Sodium 138 mmol/L (135-145); eGFR > 60.00
[2025-03-14 09:37] LABS: % Basophils 0.9 % (0-2); % Eosinophils 2.6 % (0-6); % Immature Granulocytes 0.3 % (0-0.5); % Neutrophils 72.2 % (42.2-75.2); Absolute Basophils 0.1 10^3/uL (0-0.2); Absolute Eosinophils 0.3 10^3/uL (0-0.7); Absolute Lymphocytes 2.2 10^3/uL (1.2-3.4); Absolute Monocytes 0.6 10^3/uL (0.1-0.6); Absolute Neutrophils 8.5 10^3/uL (1.4-6.5); Hematocrit 37.8 % (37.0-47.0); Hemoglobin 12.9 g/dL (12.0-16.0); Mean Corp Hgb Conc. 34.1 g/dL (33.0-37.0); Mean Corpuscular Hgb 31.3 pg (27.0-31.0); Mean Corpuscular Volume 91.7 fL (81.0-99.0); Mean Platelet Volume 10.3 fL (7.4-10.4); Nucleated Red Blood Cells % 0 %; Platelet Count 375 10^3/uL (130-400); Red Blood Cell Count 4.12 10^6/uL (4.20-5.40); Red Cell Dist. Width 13.3 % (11.5-14.5); White Blood Cell Count 11.7 10^3/uL (4.8-10.8)
[2025-03-14 11:20] VITALS: BP 93/64
[2025-03-14] MEDS: ROCEPHIN 1000 MG IV (11:23)
[2025-03-14] MEDS: STERILE WATER FOR INJECTION 10 ML IV (11:23)
[2025-03-14 11:52] LABS: Glucose - Point of Care 246 mg/dl (70-99)
[2025-03-14] MEDS: NOVOLOG FLEXPEN-MODERATE RESISTANCE 3 UNITS SC ×2 (13:35→18:04)
--- NOTE | 2025-03-14 13:54 | CM ---
CM following re: discharge planning.
Reviewed pt's chart, met with pt and pt's son at bedside. .
Pt is with history of paroxysmal atrial fibrillation and prior cerebral hemorrhage/subarachnoid, prior TIA, admitted to with acute bimalleolar Duarte C ankle fracture. Per Ortho, pt is not a surgical candidate.
PT and OT evaluations noted - acute rehab level of care recommended. Both pt and her son are aware, expressed her agreement and pt requested [facility].
A referral to [facility] made.
D/C plan: [facility] when medically stable.
CM will follow with discharge plan updates as hospitalization progresses
--- NOTE | 2025-03-14 14:19 | W.PN.CARDCBS ---
Addendum entered and electronically signed by Lance Sanchez MD 03/14/25 15:29:
I saw and examined the patient.
The Silver Solution Mixer's note was reviewed and I agree with the note.
Comment:
GEN: No distress, awake, Ox3
HEENT: supple, anicteric, mmm
LUNGS: CTA, no wheezes/rales
CV: Irreg, S1/S2, 1/6 syst LSB, no gallop
ABD: soft, BS+, NT/ND
EXT: No edema
NEURO: Gross non-focal
SKIN: No rash
Plan:
Afib with elevated rates. Restarting 200 mg p.o. twice daily x 2 weeks then 200 mg daily.
Continue Coreg 3.125 mg p.o. twice daily. Hold Lasix and enalapril.
Continue Eliquis 5 mg p.o. twice daily.
Cont Plavix.
Stop Farxiga with current UTI.
Original Note:
Today's Communication / Plan
-
Restart amiodarone 200 mg twice a day x 2 weeks then once daily thereafter
Ongoing treatment for UTI
Would hold/stop Farxiga given current UTI. Once clearance of UTI consider resuming as outpatient
Continue Plavix and Eliquis
Will arrange 2-week outpatient monitor upon discharge
Impression / Plan
-
PCP: Mukund Welch
Centrifugal Station Operator: Kem Zavala
Impression:
Right ankle fracture 03/11/2025, bimalleolar Daurte type C, unstable
Anterolateral STEMI 02/26/25 with cardiogenic shock
s/p RHC with CI 1.43, SVR 1839 02/27/25
s/p IABP placement 02/27/25, removed 03/01/2025
s/p 3 x 18 Medtronic [place]angel[place] drug-eluting stent to mid LAD 02/26/2025
ICM EF 15-20%
Acute HFrEF 01/2025
CAD
acute anterolateral STEMI with 100% thrombotic occlusion of the mid LAD with 3.0 x 18 mm Medtronic [place] EULOGIO, complicated by no reflow treated with rounds of vasodilators 02/26/25
residual 75 to 80% distal RCA stenosis just proximal to the bifurcation of the RPDA and the RPL
History of paroxysmal atrial fibrillation on Eliquis
Afib with RVR starting 02/26/25 converted to sinus rhythm
Chronic anticoagulation with Eliquis
Hypertension
Hyperlipidemia
Type 2 diabetes mellitus, [id number]
h/o TIA
Ambulatory dysfunction, using a cane
Prior falls
Former smoker
Lives alone independently
Echo 08/01/2022: EF 55-60%
Echo 02/26/2025: EF 15-20%, severe global hypokinesis with mid anteroseptal, mid anterior, mid septal, and apical akinesis, stage I diastolic dysfunction, mild MR, mod TR with PAP 54 mmHg
Echo 03/02/2025: EF 35-40%, mild cLVH, anterior, anteroseptal, and apical hypokinesis, false tendon in the LV apex, PFO present w/ L to R shunt, MAC, prolapse of posterior mitral leaflet present, mild MR, mild TR, estimated PAP 27 mmHg
Plan:
-Paroxysmal atrial fibrillation spontaneously converted to sinus rhythm 03/13 with no conversion pauses noted. Unfortunately patient went back into atrial fibrillation on the morning of 03/14/2025. Patient rather asymptomatic but heart rates poorly
controlled. Amiodarone mistakenly discontinued.
- Would resume amiodarone 200 mg twice daily x 2 weeks then 200 mg daily after. Continue Eliquis and Plavix.
- Will arrange for 2 week outpatient monitor upon discharge to rehab given PAF and recent fall.
- Coronary artery disease with recent STEMI 02/26/2025 complicated by cardiogenic shock and ischemic cardiomyopathy. Status post mid LAD EULOGIO continue Eliquis and Plavix.
- Patient has known residual disease of RCA just proximal to bifurcation of RPDA and posterior lateral. Continue aggressive medical management. Could consider staged intervention if patient should have recurrent angina symptoms
- Ischemic cardiomyopathy: Continue GDMT with Coreg, Aldactone, enalapril, carvedilol. Of note enalapril and Aldactone reduced doses this admission due to hypotension.
- Follow-up echo has been ordered, although EF has improved to 35 to 40% on echo 2 weeks ago which is reassuring
-Patient found to have UTI 03/13/2025. Would stop/hold Farxiga until resolution of UTI. Can consider resumption as outpatient
- Right ankle fracture, no surgery planned. Patient in cast.
- Plan to go to [facility] once stable
Clinical summary: 85-year-old woman with history of paroxysmal atrial fibrillation and prior cerebral hemorrhage/subarachnoid, prior TIA who was admitted to [facility] on February 26 with cardiogenic shock related to a anterior ST segment
elevation [place] with mid LAD occlusion. EF 15-20% improved to 35-40% on follow-up echo March 02, peak troponin she required intra-aortic balloon placement, received a 3 x 18 mm Medtronic Dangelo stents, with no reflow and with 75-80% distal RCA stenosis.
She had paroxysmal atrial fibrillation with conversion to sinus rhythm on amiodarone. She was discharged on March 06, and fell at home today sustaining right ankle fracture. She was in her laundry room, did not trip, was not aware of atrial
fibrillation or flutter, but felt a 'buzzing' in her ear, was very lightheaded and knew she would fall. There was no true loss of consciousness. She has a right ankle by malleolus Duarte type C fracture with instability.
Progress Note - Centrifugal Station Operator
Subjective
Date of Service: March 14, 2025
Patient seen and examined. Patient resting comfortably in bed. Patient went back into atrial fibrillation earlier today. She is rather asymptomatic.
Objective
Labs:
03/14/25 09:11
03/14/25 09:11
Labs
Hgb 12.9 g/dL (12.0-16.0) 03/14/25 09:11
Hct 37.8 % (37.0-47.0) 03/14/25 09:11
Plt Count 375 10^3/uL (130-400) 03/14/25 09:11
Sodium 138 mmol/L (135-145) 03/14/25 09:11
Potassium 5.0 mmol/L (3.5-5.1) 03/14/25 09:11
BUN 23 mg/dl (7-17) H 03/14/25 09:11
Creatinine 0.8 mg/dL (0.6-1.0) 03/14/25 09:11
Glucose 122 mg/dl (70-99) H 03/14/25 09:11
Vital Signs and I&O:
Vital Signs
Temp Pulse Resp BP Pulse Ox
98.1 F 105 16 93/64 95
03/14/25 11:20 03/14/25 11:20 03/14/25 11:20 03/14/25 11:20 03/14/25 11:20
Vital Signs
Temp Pulse Resp BP Pulse Ox
98.1 F 105 16 93/64 95
03/14/25 11:20 03/14/25 11:20 03/14/25 11:20 03/14/25 11:20 03/14/25 11:20
Intake & Output
03/12/25 03/13/25 03/14/25 03/15/25
06:59 06:59 06:59 06:59
Intake Total 960 / 960 1800 / 1800 400 / 400 480 / 480
Output Total 400 / 400
Balance 960 / 960 1400 / 1400 400 / 400 480 / 480
Physical Exam
Physical Exam
GEN: No distress, awake, Ox3
HEENT: supple, anicteric, mmm
LUNGS: CTA, no wheezes/rales
CV: Irregularly irregular, tachycardic, S1/S2, no murmur, rub or gallop
ABD: soft, BS+, NT/ND
EXT: No edema on left lower extremity. Right lower extremity in cast up to knee with some edema of toes
NEURO: Gross non-focal
SKIN: No rash, warm, dry, pink
[2025-03-14] MEDS: PACERONE 200 MG PO ×2 (14:34→20:00)
--- NOTE | 2025-03-14 14:44 | W.PN.HOSP.TC ---
Today's Communication/Plan
-
Paroxysmal A-fib with RVR.
Back to amiodarone today.
Continue Coreg.
Pending echocardiogram to reassess LVEF.
Adjust GDMT accordingly. Currently on Coreg, enalapril, spironolactone holding Lasix given marginal BP per
UTI, dysuria improved with initiation of antibiotics/ceftriaxone with pending final urine cultures.
Continue physical therapy
Discharge plan
Assessment / Plan
Assessment / Plan
#Acute bimalleolar Duarte C ankle fracture
#Osteoporosis
-Likely a traumatic fall superimposed on osteoporosis with underlying chronic disequilibrium
-Patient had mechanical fall while in her laundry room, preceded by ringing in her ears; has chronic instability
-Question if she has underlying M�ni�re's disease with disequilibrium and tinnitus; low suspicion for syncopal process
-X-ray here showing unstable Duarte type C ankle fracture on the right, orthopedics consulted
-Due to recent LAD STEMI and PCI, distal RCA lesion surgical correction was deemed too high risk
-Orthopedics planning for conservative approach, cast placed, will follow-up in office with orthopedics in 2
-Resumed DOAC, Plavix, WALDEMAR inhibitor on 03/12
-Provide PRN antiemetics and analgesics
-PT consult and OOB
#Atrial flutter
#Paroxysmal AF on Eliquis
-Home regimen includes carvedilol, amiodarone, and DOAC (amiodarone load to finish 03/13)
- Converted to sinus rhythm.
Amiodarone increased to 200 mg twice daily
Continue Coreg
Continue anticoagulation with Eliquis
#HFrEF (LVEW35%)
#Ischemic cardiomyopathy
#CAD s/p LAD PCI (01/2025)
-Home GDMT with carvedilol, ACEi, MRA, SGLT2i, DAPT and statin following recent STEMI
BP remains marginal.
Noted with hyperkalemia on 03/14
Received Lasix on 03/14
Follow BMP and hemodynamics closely.
Consider to hold WALDEMAR and potassium sparing diuretics
Repeat echocardiogram to reassess LV function pending on 03/13
Complains of dysuria.
Has mild leukocytosis
Afebrile.
Urine culture over recent admission with E. coli.
Will repeat UA and cultures
Empiric ceftriaxone initiated on 03/13
#GERD
-No known history of Dennis's esophagus or erosive esophagitis
-Home medications include no PPI or antihistamines
-Will monitor for symptoms here
#IDDM C/B neuropathy
-Poorly controlled with last A1c 8.6%; complicated by neuropathy and likely associated with ASCVD
-Home medications include Lantus 28 units daily, glipizide 5 mg BID, metformin 1 g BID, SGLT2i
-Will continue with Lantus and SGLT2i here, start ISS, hold glipizide and metformin
-Blood glucose 140-180 as goal
#Hypertension
-No known history of hypertensive systemic disease
-Currently on carvedilol, ACEI, MRA, SGLT2i as above for HFrEF
-Per patient her regimen has recently been de-escalated due to hypotension
-Blood pressure here stable, will monitor on current regimen
#Dyslipidemia
-Has history of ASCVD as above with LAD PCI recently
-Home medications include high intensity statin
-Most recent FLP with LDL 44; goal LDL < 55
#History of ectopic
#History of lumbosacral radiculopathy
#History of transient ischemic attack
Diet: Carb controlled, low-fat
DVT prophylaxis: SCDs
CODE STATUS: Full code
Anticipated Discharge: 24 - 48 hours
Subjective/Interval History
-
Date of Service: March 14, 2025
Objective Data
-
Labs:
Laboratory Results
03/14/25
09:11
WBC 11.7 H
Hgb 12.9
Hct 37.8
Plt Count 375
Sodium 138
Potassium 5.0
Chloride 108 H
Carbon Dioxide 25
BUN 23 H
Creatinine 0.8
Glucose 122 H
Calcium 9.8
Vital Signs:
Vital Signs
Temp Pulse Resp BP Pulse Ox
98.1 F 105 16 93/64 95
03/14/25 11:20 03/14/25 11:20 03/14/25 11:20 03/14/25 11:20 03/14/25 11:20
I&O
03/13/25 03/14/25 03/15/25
06:59 06:59 06:59
Intake Total 1800 / 1800 400 / 400 480 / 480
Output Total 400 / 400
Balance 1400 / 1400 400 / 400 480 / 480
Physical Exam
-
General: Comfortable
HEENT: Normocephalic and Atraumatic
Respiratory: Clear to Auscultation
Cardiac: Irregular Rhythm
GI: Nondistended
Musculoskeletal: No Edema
Neuro: AO x 3
Psych: Calm
[2025-03-14 15:00] VITALS: BP 100/53; BP 108/60; BP 95/53; PULSE 88; PULSE 89; PULSE 93
[2025-03-14 16:43] LABS: Glucose - Point of Care 247 mg/dl (70-99)
[2025-03-14] MEDS: LIPITOR 40 MG PO (18:04)
[2025-03-14 19:05] VITALS: BP 106/62
[2025-03-14 22:00] LABS: Glucose - Point of Care 179 mg/dl (70-99)
[2025-03-14 23:05] VITALS: BP 118/70
[2025-03-15] VITALS (8 sets, daily range): BP systolic 101–125; BP diastolic 63–77; PULSE 85–97; O2SAT 97–98; BMI 27.5
[2025-03-15 07:29] LABS: Glucose - Point of Care 148 mg/dl (70-99)
[2025-03-15 07:31] LABS: % Basophils 1.1 % (0-2); % Eosinophils 2.6 % (0-6); % Immature Granulocytes 0.3 % (0-0.5); % Lymphocytes 21.3 % (20.5-51.1); % Monocytes 5.9 % (1.7-9.3); % Neutrophils 68.8 % (42.2-75.2); Absolute Basophils 0.1 10^3/uL (0-0.2); Absolute Eosinophils 0.3 10^3/uL (0-0.7); Absolute Lymphocytes 2.4 10^3/uL (1.2-3.4); Absolute Monocytes 0.7 10^3/uL (0.1-0.6); Absolute Neutrophils 7.7 10^3/uL (1.4-6.5); Hematocrit 37.5 % (37.0-47.0); Hemoglobin 12.7 g/dL (12.0-16.0); Mean Corp Hgb Conc. 33.9 g/dL (33.0-37.0); Mean Corpuscular Hgb 31.3 pg (27.0-31.0); Mean Corpuscular Volume 92.4 fL (81.0-99.0); Mean Platelet Volume 10.1 fL (7.4-10.4); Nucleated Red Blood Cells % 0 %; Platelet Count 403 10^3/uL (130-400); Red Blood Cell Count 4.06 10^6/uL (4.20-5.40); Red Cell Dist. Width 13.4 % (11.5-14.5); White Blood Cell Count 11.2 10^3/uL (4.8-10.8)
[2025-03-15 07:43] LABS: Blood Urea Nitrogen 28 mg/dl (7-17); Calcium 9.8 mg/dl (8.4-10.2); Carbon Dioxide 21 mmol/L (22-30); Chloride 105 mmol/L (98-107); Estimated Creatinine Clearance 55 ml/min; Glucose 144 mg/dl (70-99); Potassium 5.1 mmol/L (3.5-5.1); Sodium 137 mmol/L (135-145); eGFR > 60.00
[2025-03-15] MEDS: NOVOLOG FLEXPEN-MODERATE RESISTANCE SC (08:24)
[2025-03-15] MEDS: OSCAL CAL 500 500 MG PO ×2 (08:27→20:47)
[2025-03-15] MEDS: ALDACTONE 12.5 MG PO (08:27)
[2025-03-15] MEDS: THERAGRAN 1 TABLET PO (08:27)
[2025-03-15] MEDS: COREG 3.125 MG PO ×2 (08:27→20:47)
[2025-03-15] MEDS: PLAVIX 75 MG PO (08:28)
[2025-03-15] MEDS: LEXAPRO 10 MG PO (08:28)
[2025-03-15] MEDS: ELIQUIS 5 MG PO ×2 (08:28→20:47)
[2025-03-15] MEDS: PACERONE 200 MG PO ×2 (08:28→20:47)
[2025-03-15] MEDS: LANTUS 0.28 UNITS SC (08:29)
[2025-03-15] MEDS: ROCEPHIN 1000 MG IV (09:57)
[2025-03-15] MEDS: STERILE WATER FOR INJECTION 10 ML IV (09:57)
[2025-03-15] MEDS: FLUSH (NSS) 1 FLUSH IV (09:57)
--- NOTE | 2025-03-15 10:17 | CM ---
CM following re: discharge planning.
Reviewed pt's chart, met with pt and pt's son at bedside. .
Pt is with history of paroxysmal atrial fibrillation and prior cerebral hemorrhage/subarachnoid, prior TIA, admitted to with acute bimalleolar Duarte C ankle fracture. Per Ortho, pt is not a surgical candidate.
PT and OT evaluations noted - acute rehab level of care recommended.
A referral to [facility] made yesterday. Per [facility] aide, a referral for acute rehab has been denied due to not meeting criteria for acute rehab level of care.
Pt is aware, expressed her disappointed feelings, explanation of denial explained and pt expressed her understanding. A list of SNFs provided. Pt preferred: [facility] and [facility]. A referral to above SNFs made. Awaiting for determination.
D/C plan: preferred SNF: [facility] or [facility].
CM will follow to assist pt with discharge to a preferred SNF.
[2025-03-15 12:09] LABS: Glucose - Point of Care 280 mg/dl (70-99)
[2025-03-15] MEDS: NOVOLOG FLEXPEN-MODERATE RESISTANCE 5 UNITS SC ×2 (12:35→17:31)
--- NOTE | 2025-03-15 12:44 | W.PN.CARDCBS ---
Addendum entered and electronically signed by Lance Sanchez MD 03/15/25 13:49:
I saw and examined the patient.
The Blintze Roller's note was reviewed and I agree with the note.
Comment:
GEN: No distress, awake, Ox3
HEENT: supple, anicteric, mmm
LUNGS: CTA, no wheezes/rales
CV: Reg, S1/S2, 1/6 syst LSB, no gallop
ABD: soft, BS+, NT/ND
EXT: No edema
NEURO: Gross non-focal
SKIN: No rash
PLan:
She is back in sinus rhythm. Continue amiodarone and carvedilol. No further conversion pauses. Will check monitor as outpatient.
Continue Eliquis/Plavix.
Continue rehab.
Will resume Lasix 20 mg daily. Will hold off on lisinopril for now and likely resume as outpatient.
Original Note:
Today's Communication / Plan
-
Continue to follow on tele
continue amio, coreg
Eliquis, plavix for AC
Likely restart lasix in AM
Impression / Plan
-
PCP: Mukund Welch
Crew Leader Gluing: Kem Zavala
Impression:
Right ankle fracture 03/11/2025, bimalleolar Duarte type C, unstable
Paroxysmal atrial fibrillation w/ RVR
Chronic anticoagulation with Eliquis
E.coli UTI
Recent admission w/ anterolateral STEMI and cardiogenic shock 02/26/25 - 03/06/2025
ICM, EF up to 35-40% 03/02/2025
Chronic HFrEF
CAD
acute anterolateral STEMI with 100% thrombotic occlusion of the mid LAD with 3.0 x 18 mm Medtronic Dangelo EULOGIO, complicated by no reflow treated with rounds of vasodilators 02/26/25
residual 75 to 80% distal RCA stenosis just proximal to the bifurcation of the RPDA and the RPL
Hypertension
Hyperlipidemia
Type 2 diabetes mellitus
h/o TIA
Ambulatory dysfunction, using a cane
Prior falls
Former smoker
Lives alone independently
Echo 08/01/2022: EF 55-60%
Echo 02/26/2025: EF 15-20%, severe global hypokinesis with mid anteroseptal, mid anterior, mid septal, and apical akinesis, stage I diastolic dysfunction, mild MR, mod TR with PAP 54 mmHg
Echo 03/02/2025: EF 35-40%, mild cLVH, anterior, anteroseptal, and apical hypokinesis, false tendon in the LV apex, PFO present w/ L to R shunt, MAC, prolapse of posterior mitral leaflet present, mild MR, mild TR, estimated PAP 27 mmHg
Echo 03/13/2025: EF 35%, stage I diastolic dysfunction, mild posterior MVP with mild to mod MAC, mild MR, mild TR, estimated PAP 24 mmHg,
Plan:
-Presented after fall at home 03/11/2025. Found to have R ankle fracture. Seen by orthopedics and plan is for non-operative management.
-Noted to be in atrial flutter w/ RVR on arrival to ER, and has continued to have paroxysms of atrial fibrillation/flutter this admission. In SR today.
-Continue amiodarone 200mg BID and Coreg 3.125mg BID. HR stable. Continue to follow on telemetry while admitted.
-Continue Eliquis and Plavix. Completed 1 week of triple therapy following PCI last admission.
-Will likely discharge w/ 2 week [address] monitor in place to continue to follow episodes of afib and assess for possible conversion pauses.
-Remains chest pain free this admission.
-Continue medical management of ICM with carvedilol, spironolactone, and enalapril. BP stable.
-UTI noted this admission. Farxiga stopped. Can consider resuming as OP. Continue abx per primary service.
-EF stable at 35% by echo 03/13 as noted above.
-Appears euvolemic. Lasix remains on hold due to hypotension. Creat stable at 0.8. Will plan to resume PO lasix in AM.
-Continue lipitor 40mg daily.
HPI: 85-year-old woman with history of paroxysmal atrial fibrillation and prior cerebral hemorrhage/subarachnoid, prior TIA who was admitted to [facility] on February 26 with cardiogenic shock related to a anterior ST segment elevation [place] with
mid LAD occlusion. EF 15-20% improved to 35-40% on follow-up echo March 02, peak troponin she required intra-aortic balloon placement, received a 3 x 18 mm Medtronic [place] stents, with no reflow and with 75-80% distal RCA stenosis. She had paroxysmal
atrial fibrillation with conversion to sinus rhythm on amiodarone. She was discharged on March 06, and fell at home today sustaining right ankle fracture. She was in her laundry room, did not trip, was not aware of atrial fibrillation or flutter, but
felt a 'buzzing' in her ear, was very lightheaded and knew she would fall. There was no true loss of consciousness. She has a right ankle by malleolus Duarte type C fracture with instability.
Progress Note - Crew Leader Gluing
Subjective
Date of Service: March 15, 2025
No complaints. Feeling well.
Objective
Labs:
03/15/25 06:28
03/15/25 06:28
Labs
Hgb 12.7 g/dL (12.0-16.0) 03/15/25 06:28
Hct 37.5 % (37.0-47.0) 03/15/25 06:28
Plt Count 403 10^3/uL (130-400) H 03/15/25 06:28
Sodium 137 mmol/L (135-145) 03/15/25 06:28
Potassium 5.1 mmol/L (3.5-5.1) 03/15/25 06:28
BUN 28 mg/dl (7-17) H 03/15/25 06:28
Creatinine 0.8 mg/dL (0.6-1.0) 03/15/25 06:28
Glucose 144 mg/dl (70-99) H 03/15/25 06:28
Vital Signs and I&O:
Vital Signs
Temp Pulse Resp BP Pulse Ox
98.0 F 85 18 116/69 100
03/15/25 10:45 03/15/25 10:45 03/15/25 10:45 03/15/25 10:45 03/15/25 10:45
Vital Signs
Temp Pulse Resp BP Pulse Ox
98.0 F 85 18 116/69 100
03/15/25 10:45 03/15/25 10:45 03/15/25 10:45 03/15/25 10:45 03/15/25 10:45
Intake & Output
03/13/25 03/14/25 03/15/25 03/16/25
06:59 06:59 06:59 06:59
Intake Total 1800 / 1800 400 / 400 1975 / 1975 240 / 240
Output Total 400 / 400 1050 / 1050
Balance 1400 / 1400 400 / 400 926 / 926 240 / 240
Physical Exam
Physical Exam
GEN: No distress, awake, alert, oriented x3
HEENT: supple, anicteric, mmm
LUNGS: CTA b/l, no wheezes/rales
CV: Reg, S1/S2, no murmur
EXT: No clubbing, cyanosis, or edema. RLE in cast
NEURO: Gross non-focal
SKIN: Warm, dry, no rash
--- NOTE | 2025-03-15 15:37 | W.PN.HOSP.TC ---
Today's Communication/Plan
-
Remains in sinus rhythm while on amiodarone.
Monitor on telemetry overnight
Resume Lasix in a.m.
Adjust insulin dosing per
Continued ceftriaxone pending final urine cultures and sensitivity.
Continue rehab with plan for SNF rehab upon discharge.
Assessment / Plan
Assessment / Plan
#Acute bimalleolar Duarte C ankle fracture
#Osteoporosis
-Likely a traumatic fall superimposed on osteoporosis with underlying chronic disequilibrium
-Patient had mechanical fall while in her laundry room, preceded by ringing in her ears; has chronic instability
-Question if she has underlying M�ni�re's disease with disequilibrium and tinnitus; low suspicion for syncopal process
-X-ray here showing unstable Duarte type C ankle fracture on the right, orthopedics consulted
-Due to recent LAD STEMI and PCI, distal RCA lesion surgical correction was deemed too high risk
-Orthopedics planning for conservative approach, cast placed, will follow-up in office with orthopedics in 2
-Resumed DOAC, Plavix, WALDEMAR inhibitor on 03/12
-Provide PRN antiemetics and analgesics
-PT consult and OOB
#Atrial flutter
#Paroxysmal AF on Eliquis
-Home regimen includes carvedilol, amiodarone, and DOAC (amiodarone load to finish 03/13)
- Converted to sinus rhythm.
Amiodarone increased to 200 mg twice daily
Continue Coreg
Continue anticoagulation with Eliquis
#HFrEF (LVEW35%)
#Ischemic cardiomyopathy
#CAD s/p LAD PCI (01/2025)
-Home GDMT with carvedilol, ACEi, MRA, SGLT2i, DAPT and statin following recent STEMI
BP remains marginal.
Noted with hyperkalemia on 03/14
Received Lasix on 03/14
Follow BMP and hemodynamics closely.
Consider to hold WALDEMAR and potassium sparing diuretics
Repeat echocardiogram to reassess LV function pending on 03/13
Urinary tract infection
Complains of dysuria.
Has mild leukocytosis
Afebrile. Nontoxic-appearing. No evidence of systemic infection.
Urine culture over recent admission with E. coli.
Repeat urine culture with E. coli pending final sensitivities
Initiated on ceftriaxone with improvement of symptoms
Would hold SGLT2 inhibitor at this point until complete resolution of UTI.
#GERD
-No known history of Dennis's esophagus or erosive esophagitis
-Home medications include no PPI or antihistamines
-Will monitor for symptoms here
#IDDM C/B neuropathy
-Poorly controlled with last A1c 8.6%; complicated by neuropathy and likely associated with ASCVD
-Home medications include Lantus 28 units daily, glipizide 5 mg BID, metformin 1 g BID, SGLT2i
-Will continue with Lantus
Hold SGLT2 inhibitor given UTI.
Initiate aspart 4 AC
Continue basal bolus protocol adjusting
#Hypertension
-No known history of hypertensive systemic disease
-Currently on carvedilol, ACEI, MRA, SGLT2i as above for HFrEF
-Per patient her regimen has recently been de-escalated due to hypotension
-Blood pressure here stable, will monitor on current regimen
#Dyslipidemia
-Has history of ASCVD as above with LAD PCI recently
-Home medications include high intensity statin
-Most recent FLP with LDL 44; goal LDL < 55
#History of ectopic
#History of lumbosacral radiculopathy
#History of transient ischemic attack
Diet: Carb controlled, low-fat
DVT prophylaxis: SCDs
CODE STATUS: Full code
Anticipated Discharge: Within 24 hours
Subjective/Interval History
-
Date of Service: March 15, 2025
Objective Data
-
Labs:
Laboratory Results
03/15/25
06:28
WBC 11.2 H
Hgb 12.7
Hct 37.5
Plt Count 403 H
Sodium 137
Potassium 5.1
Chloride 105
Carbon Dioxide 21 L
BUN 28 H
Creatinine 0.8
Glucose 144 H
Calcium 9.8
Vital Signs:
Vital Signs
Temp Pulse Resp BP Pulse Ox
98.0 F 85 18 116/69 100
03/15/25 10:45 03/15/25 10:45 03/15/25 10:45 03/15/25 10:45 03/15/25 10:45
I&O
03/14/25 03/15/25 03/16/25
06:59 06:59 06:59
Intake Total 400 / 400 1975 / 1975 480 / 480
Output Total 1050 / 1050
Balance 400 / 400 926 / 926 480 / 480
Physical Exam
-
General: Comfortable
HEENT: Normocephalic and Atraumatic
Respiratory: Clear to Auscultation
Cardiac: Irregular Rhythm
GI: Nondistended
Musculoskeletal: No Edema
Neuro: AO x 3
Psych: Calm
[2025-03-15 16:49] LABS: Glucose - Point of Care 276 mg/dl (70-99)
[2025-03-15] MEDS: NOVOLOG FLEXPEN 4 UNITS SC (17:31)
[2025-03-15] MEDS: LIPITOR 40 MG PO (17:35)
[2025-03-15 21:24] LABS: Glucose - Point of Care 210 mg/dl (70-99)
[2025-03-16] VITALS (11 sets, daily range): BP systolic 91–124; BP diastolic 59–76; PULSE 110–117; O2SAT 97; BMI 27.4
[2025-03-16 07:19] LABS: Glucose - Point of Care 170 mg/dl (70-99)
[2025-03-16] MEDS: NOVOLOG FLEXPEN 4 UNITS SC ×3 (08:33→17:16)
[2025-03-16] MEDS: NOVOLOG FLEXPEN-MODERATE RESISTANCE 1 UNITS SC ×3 (08:34→17:15)
[2025-03-16] MEDS: ROCEPHIN 1000 MG IV (08:34)
[2025-03-16] MEDS: STERILE WATER FOR INJECTION 10 ML IV (08:35)
[2025-03-16] MEDS: ELIQUIS 5 MG PO ×2 (08:35→20:47)
[2025-03-16] MEDS: OSCAL CAL 500 500 MG PO ×2 (08:35→20:47)
[2025-03-16] MEDS: THERAGRAN 1 TABLET PO (08:35)
[2025-03-16] MEDS: LASIX 20 MG PO (08:35)
[2025-03-16] MEDS: ALDACTONE 12.5 MG PO (08:36)
[2025-03-16] MEDS: LEXAPRO 10 MG PO (08:37)
[2025-03-16] MEDS: PLAVIX 75 MG PO (08:37)
[2025-03-16] MEDS: TYLENOL 650 MG PO ×2 (08:37→12:52)
[2025-03-16] MEDS: COREG 3.125 MG PO ×2 (08:37→12:52)
[2025-03-16] MEDS: PACERONE 200 MG PO (08:37)
[2025-03-16] MEDS: LANTUS 0.28 UNITS SC (08:45)
[2025-03-16 09:48] LABS: Blood Urea Nitrogen 28 mg/dl (7-17); Calcium 9.8 mg/dl (8.4-10.2); Carbon Dioxide 26 mmol/L (22-30); Chloride 106 mmol/L (98-107); Estimated Creatinine Clearance 49 ml/min; Glucose 166 mg/dl (70-99); Potassium 5.1 mmol/L (3.5-5.1); Sodium 137 mmol/L (135-145); eGFR > 60.00
--- NOTE | 2025-03-16 10:26 | W.PN.HOSP.TC ---
Today's Communication/Plan
-
Went back in to Afib RVR
Monitor HR w/am meds otherwise will need med adjustment-increase amio vs. dig
cont to monitor
pain control
Assessment / Plan
Assessment / Plan
#Acute bimalleolar Duarte C ankle fracture
#Osteoporosis
-Likely a traumatic fall superimposed on osteoporosis with underlying chronic disequilibrium
-Patient had mechanical fall while in her laundry room, preceded by ringing in her ears; has chronic instability
-Question if she has underlying M�ni�re's disease with disequilibrium and tinnitus; low suspicion for syncopal process
-X-ray here showing unstable Duarte type C ankle fracture on the right, orthopedics consulted
-Due to recent LAD STEMI and PCI, distal RCA lesion surgical correction was deemed too high risk
-Orthopedics planning for conservative approach, cast placed, will follow-up in office with orthopedics in 2
-Resumed DOAC, Plavix, WALDEMAR inhibitor on 03/12
-Provide PRN antiemetics and analgesics
-PT consult and OOB
#Atrial flutter
#Paroxysmal AF on Eliquis
-Home regimen includes carvedilol, amiodarone, and DOAC (amiodarone load to finish 03/13)
went back into afib RVR
Amiodarone increased to 200 mg twice daily
Continue Coreg
Continue anticoagulation with Eliquis
may need to increase dose of amiodarone vs. digoxin as soft bp limits options
#HFrEF (LVEW35%)
#Ischemic cardiomyopathy
#CAD s/p LAD PCI (01/2025)
-Home GDMT with carvedilol, ACEi, MRA, SGLT2i, DAPT and statin following recent STEMI
BP remains marginal.
Noted with hyperkalemia on 03/14
Received Lasix on 03/14
Follow BMP and hemodynamics closely.
Consider to hold WLADEMAR
Repeat echocardiogram to reassess LV function EF of 35%
Urinary tract infection
Complains of dysuria.
Has mild leukocytosis
Afebrile. Nontoxic-appearing. No evidence of systemic infection.
Urine culture over recent admission with E. coli.
Repeat urine culture with E. coli pending final sensitivities noted-sheriff sensitive
Initiated on ceftriaxone with improvement of symptoms
Would hold SGLT2 inhibitor at this point until complete resolution of UTI.
#GERD
-No known history of Dennis's esophagus or erosive esophagitis
-Home medications include no PPI or antihistamines
-Will monitor for symptoms here
#IDDM C/B neuropathy
-Poorly controlled with last A1c 8.6%; complicated by neuropathy and likely associated with ASCVD
-Home medications include Lantus 28 units daily, glipizide 5 mg BID, metformin 1 g BID, SGLT2i
-Will continue with 28u Lantus
Hold SGLT2 inhibitor given UTI.
Initiate aspart 4 AC
Continue basal bolus protocol adjusting
#Hypertension
-No known history of hypertensive systemic disease
-Currently on carvedilol,
-on hold ACEI, MRA, SGLT2i as above for HFrEF
-Per patient her regimen has recently been de-escalated due to hypotension
-Blood pressure here stable, will monitor on current regimen
#Dyslipidemia
-Has history of ASCVD as above with LAD PCI recently
-Home medications include high intensity statin
-Most recent FLP with LDL 44; goal LDL < 55
#History of ectopic
#History of lumbosacral radiculopathy
#History of transient ischemic attack
Diet: Carb controlled, low-fat
DVT prophylaxis: SCDs
CODE STATUS: Full code
Anticipated Discharge: 24 - 48 hours
Subjective/Interval History
-
Date of Service: March 16, 2025
went into Afib w/RVR
Denies cp or palpations
Objective Data
-
Labs:
Laboratory Results
05/15/25
08:14
Sodium 137
Potassium 5.1
Chloride 106
Carbon Dioxide 26
BUN 28 H
Creatinine 0.9
Glucose 166 H
Calcium 9.8
Vital Signs:
Vital Signs
Temp Pulse Resp BP Pulse Ox
98.4 F 107 18 124/76 98
03/16/25 07:15 03/16/25 07:15 03/16/25 07:15 03/16/25 07:15 03/16/25 07:15
I&O
03/15/25 03/16/25 03/17/25
06:59 06:59 06:59
Intake Total 1975 / 1975 960 / 960
Output Total 1050 / 1050
Balance 926 / 926 960 / 960
Physical Exam
-
General: Comfortable
HEENT: Normocephalic and Atraumatic
Respiratory: Non Labored Respirations and Decreased Breath Sounds; Negative Accessory Resp Muscle Use
Cardiac: S1/S2, Irregular Rhythm and Tachycardic
GI: Nondistended
Musculoskeletal: No Clubbing, No Edema and Other (RLE in cast noted )
Neuro: Awake and AO x 3
Psych: Calm
--- NOTE | 2025-03-16 11:08 | W.PN.CARDCBS ---
Addendum entered and electronically signed by Chelle Arciniega MD 03/16/25 16:15:
I saw and examined the patient.
The Supervisor Roving's note was reviewed and I agree with the note.
Comment: Patient is out of bed into a chair right now and had just worked with physical therapy earlier. Intermittently with her A-fib with RVR she feels breathlessness especially after activity she tells me. With her rapid atrial fibrillation and
going in and out of it her carvedilol was uptitrated earlier today and she received an additional dose of 3.125 mg this afternoon. Other than when she is exertional or straining herself she denies any resting chest discomfort or shortness of
breath. she is in good spirits and denies any pain in her ankle
On exam, patient is well-appearing, out of bed in the chair, awake, alert and oriented x 3, irregularly irregular heart rate, tachycardia, normal S1 and S2, no murmurs, rubs or gallops, JVP of about 7 to 8 cm of water, lungs are clear to
auscultation bilaterally, abdomen is soft, nontender, nondistended with active bowel sounds, warm extremities, cast noted on her right lower extremity, known fractured lower extremity without significant edema.
Recommendations:
1. I know her from a recent admission with anterolateral ST elevation NV complicated by cardiogenic shock from February 26 until March 06, 2025 where she underwent a mid LAD PCI with a 3.0 x 18 mm Medtronic [place] drug-eluting stent with residual 75 to 80%
mid to distal RCA stenosis just proximal to the bifurcation of the RPDA and the RPL. Continued Plavix. She did short course of triple therapy and is now off aspirin. High intensity statin as well as beta-danny as tolerated.
2. For her ischemic cardiomyopathy, she is being continued on Aldactone. Given softer blood pressures, her enalapril currently is on hold. For now given ongoing A-fib with RVR with soft blood pressures, our plan will be to switch her from
carvedilol to metoprolol tartrate 25 mg every 6 hours with plan to switch it to metoprolol XL in the setting of known ischemic cardiomyopathy prior to discharge once heart rates are stable. We will attempt to bring the enalapril back on if her
blood pressures allow to optimize GDMT. Continue close monitoring on telemetry for now. Will need to consider outpatient nurse monitoring given concern for possible conversion pauses. She is continued on Eliquis for her atrial fibrillation to
minimize risk for strokes.
3. She examines euvolemic on exam today so we will plan on continuing p.o. diuretics for now to maintain euvolemia.
4. Defer management of the fracture to primary team.
5. Hypertension: Her blood pressures if anything are on the softer end and her enalapril currently also on hold. Closely monitor blood pressures while we use Lopressor to control her heart rates better.
6. For atrial fibrillation with RVR, continue to 100 mg of amiodarone twice daily along with Lopressor as noted above.
7. Hyperlipidemia especially with recent ST elevation NV: Continue high intensity statin with 40 mg of atorvastatin daily given she is over age 81 to minimize side effects.
8. Continue to monitor closely on telemetry. Her LVEF did improve to 35% on repeat echp
9. Eventual outpatient plan to stage RCA PCI once she recovers from these acute issues.
Discussed with nursing at bedside.
Chelle Arciniega MD, [facility], [facility]
Total time spent: 52mins
Original Note:
Today's Communication / Plan
-
-back in afib w/ RVR, uptitrate Coreg for better rate control
-place 2 wk monitor on discharge
-plan is discharge to SNF, but would wait on discharge til HRs better controlled.
Impression / Plan
-
PCP: Mukund Welch
Entry Level Project Coordinator: Kem Zavala
Impression:
Right ankle fracture 03/11/2025, bimalleolar Duarte type C, unstable
Paroxysmal atrial fibrillation w/ RVR
Chronic anticoagulation with Eliquis
E.coli UTI
Recent admission w/ anterolateral STEMI and cardiogenic shock 02/26/25 - 03/06/2025
ICM, EF up to 35-40% 03/02/2025
Chronic HFrEF
CAD
acute anterolateral STEMI with 100% thrombotic occlusion of the mid LAD with 3.0 x 18 mm Medtronic [place] EULOGIO, complicated by no reflow treated with rounds of vasodilators 02/26/25
residual 75 to 80% distal RCA stenosis just proximal to the bifurcation of the RPDA and the RPL
Hypertension
Hyperlipidemia
Type 2 diabetes mellitus
h/o TIA
Ambulatory dysfunction, using a cane
Prior falls
Former smoker
Lives alone independently
Echo 08/01/2022: EF 55-60%
Echo 02/26/2025: EF 15-20%, severe global hypokinesis with mid anteroseptal, mid anterior, mid septal, and apical akinesis, stage I diastolic dysfunction, mild MR, mod TR with PAP 54 mmHg
Echo 03/02/2025: EF 35-40%, mild cLVH, anterior, anteroseptal, and apical hypokinesis, false tendon in the LV apex, PFO present w/ L to R shunt, MAC, prolapse of posterior mitral leaflet present, mild MR, mild TR, estimated PAP 27 mmHg
Echo 03/13/2025: EF 35%, stage I diastolic dysfunction, mild posterior MVP with mild to mod MAC, mild MR, mild TR, estimated PAP 24 mmHg,
Plan:
-Presented after fall at home 03/11/2025. Found to have R ankle fracture. Seen by orthopedics and plan is for non-operative management.
-Noted to be in atrial flutter w/ RVR on arrival to ER, and has continued to have paroxysms of atrial fibrillation/flutter this admission.
-Went back into afib 03/16/2025 ~4AM. HRs 110s-130s in afib. Pt asymptomatic.
-EKG 03/16/2025: atrial fibrillation 107 bpm QTc 507msec
-On amiodarone 200mg BID and Coreg 3.125mg BID. Uptitrate Carvedilol to 6.25 mg bid.
-repeat EKG in am, if QTc continues to prolong, reduce Amio to 200 mg daily.
-Continue to follow on telemetry while admitted.
-Continue Eliquis and Plavix. Completed 1 week of triple therapy following PCI last admission.
-Will likely discharge w/ 2 week OP monitor in place to continue to follow episodes of afib and assess for possible conversion pauses.
-Remains chest pain free this admission.
-Continue medical management of ICM with carvedilol, spironolactone. Enalapril currently on hold due to lower BPs. Had previously been on 10 mg bid at time of 03/06/2025 discharge. BPs currently 103-127/64-77.
-UTI noted this admission. Farxiga stopped. Can consider resuming as OP. Continue abx per primary service.
-EF stable at 35% by echo 03/13/2025 as noted above.
-Appears euvolemic. on Lasix 20 mg daily. Creat stable at 0.9. Lasix had been held earlier in admission due to
-Continue lipitor 40mg daily.
HPI: 85-year-old woman with history of paroxysmal atrial fibrillation and prior cerebral hemorrhage/subarachnoid, prior TIA who was admitted to [facility] on February 26 with cardiogenic shock related to a anterior ST segment elevation NV with
mid LAD occlusion. EF 15-20% improved to 35-40% on follow-up echo March 02, peak troponin she required intra-aortic balloon placement, received a 3 x 18 mm Medtronic [place]angel[place] stents, with no reflow and with 75-80% distal RCA stenosis. She had paroxysmal
atrial fibrillation with conversion to sinus rhythm on amiodarone. She was discharged on March 06, and fell at home today sustaining right ankle fracture. She was in her laundry room, did not trip, was not aware of atrial fibrillation or flutter, but
felt a 'buzzing' in her ear, was very lightheaded and knew she would fall. There was no true loss of consciousness. She has a right ankle by malleolus Duarte type C fracture with instability.
Progress Note - Entry Level Project Coordinator
Subjective
Date of Service: March 16, 2025
-went back into afib overnight around 4am, HRs in afib 110s-130s
denies palps, lightheadedness, SOB, CP
Objective
Labs:
03/15/25 06:28
03/16/25 08:14
Labs
Hgb 12.7 g/dL (12.0-16.0) 03/15/25 06:28
Hct 37.5 % (37.0-47.0) 03/15/25 06:28
Plt Count 403 10^3/uL (130-400) H 03/15/25 06:28
Sodium 137 mmol/L (135-145) 03/16/25 08:14
Potassium 5.1 mmol/L (3.5-5.1) 03/16/25 08:14
BUN 28 mg/dl (7-17) H 03/16/25 08:14
Creatinine 0.9 mg/dL (0.6-1.0) 03/16/25 08:14
Glucose 166 mg/dl (70-99) H 03/16/25 08:14
Vital Signs and I&O:
Vital Signs
Temp Pulse Resp BP Pulse Ox
98.4 F 107 18 124/76 98
03/16/25 07:15 03/16/25 07:15 03/16/25 07:15 03/16/25 07:15 03/16/25 07:15
Vital Signs
Temp Pulse Resp BP Pulse Ox
98.4 F 107 18 124/76 98
03/16/25 07:15 03/16/25 07:15 03/16/25 07:15 03/16/25 07:15 03/16/25 07:15
Intake & Output
03/14/25 03/15/25 03/16/25 03/17/25
06:59 06:59 06:59 06:59
Intake Total 400 / 400 1975 960 / 960
Output Total 1050 / 1050
Balance 400 / 400 926 / 926 960 / 960
Physical Exam
Physical Exam
GEN: No distress, awake, Ox3
HEENT: supple, anicteric, mmm
LUNGS: CTA, no wheezes/rales
CV: Tachy, irreg, 1/6 syst LSB, no murmur
ABD: soft, BS+, NT/ND
EXT: No edema
NEURO: Gross non-focal
SKIN: No rash
[2025-03-16 11:42] LABS: Glucose - Point of Care 184 mg/dl (70-99)
--- NOTE | 2025-03-16 13:47 | CM ---
Patient accepted pending bed availability to both [facility] and [facility]. Patient for continued work up with cardiology at this time. CM will continue to follow for discharge planning needs.
Plan; SNF: pending bed availability
[2025-03-16] MEDS: LOPRESSOR 25 MG PO ×2 (17:14→19:40)
[2025-03-16] MEDS: LIPITOR 40 MG PO (17:14)
[2025-03-16 17:15] LABS: Glucose - Point of Care 166 mg/dl (70-99)
[2025-03-16 21:18] LABS: Glucose - Point of Care 322 mg/dl (70-99)
[2025-03-16] MEDS: NOVOLOG FLEXPEN 7 UNITS SC (21:31)
[2025-03-16] MEDS: PACERONE PO (22:04)
[2025-03-16] MEDS: PACERONE 100 MG PO (22:08)
[2025-03-17] VITALS (9 sets, daily range): BP systolic 91–108; BP diastolic 55–70; PULSE 79–124; O2SAT 100; BMI 27.3
[2025-03-17] MEDS: LOPRESSOR 25 MG PO ×5 (00:20→23:21)
[2025-03-17 05:45] LABS: % Basophils 1.3 % (0-2); % Eosinophils 3.6 % (0-6); % Immature Granulocytes 0.3 % (0-0.5); % Lymphocytes 22.9 % (20.5-51.1); % Monocytes 5.4 % (1.7-9.3); % Neutrophils 66.5 % (42.2-75.2); Absolute Basophils 0.2 10^3/uL (0-0.2); Absolute Eosinophils 0.4 10^3/uL (0-0.7); Absolute Lymphocytes 2.7 10^3/uL (1.2-3.4); Absolute Monocytes 0.6 10^3/uL (0.1-0.6); Absolute Neutrophils 7.7 10^3/uL (1.4-6.5); Hematocrit 37.2 % (37.0-47.0); Hemoglobin 12.7 g/dL (12.0-16.0); Mean Corp Hgb Conc. 34.1 g/dL (33.0-37.0); Mean Corpuscular Volume 90.7 fL (81.0-99.0); Nucleated Red Blood Cells % 0 %; Platelet Count 400 10^3/uL (130-400); Red Cell Dist. Width 13.3 % (11.5-14.5); White Blood Cell Count 11.6 10^3/uL (4.8-10.8)
[2025-03-17 06:12] LABS: Blood Urea Nitrogen 30 mg/dl (7-17); Calcium 10.4 mg/dl (8.4-10.2); Carbon Dioxide 22 mmol/L (22-30); Chloride 107 mmol/L (98-107); Estimated Creatinine Clearance 55 ml/min; Glucose 146 mg/dl (70-99); Potassium 4.7 mmol/L (3.5-5.1); Sodium 138 mmol/L (135-145); eGFR > 60.00
[2025-03-17 07:04] LABS: Glucose - Point of Care 168 mg/dl (70-99)
--- NOTE | 2025-03-17 09:13 | W.PN.CARDCBS ---
Addendum entered and electronically signed by Chelle Arciniega MD 03/17/25 16:53:
I saw and examined the patient.
The Job Cost Estimator's note was reviewed and I agree with the note.
Comment: Patient is out of bed into a chair right now, overall heart rates are better controlled than yesterday
On exam, patient is well-appearing, out of bed in the chair, awake, alert and oriented x 3, irregularly irregular heart rate, normal S1 and S2, no murmurs, rubs or gallops, JVP of about 7 to 8 cm of water, lungs are clear to auscultation
bilaterally, abdomen is soft, nontender, nondistended with active bowel sounds, warm extremities, cast noted on her right lower extremity, known fractured lower extremity without significant edema.
Recommendations:
1. Paroxysmal atrial fibrillation: Heart rates are better controlled on metoprolol so we will switch her to Toprol XL 50 mg twice daily and continue amiodarone as is for now with plan to decrease to 200 mg daily at the time of discharge. For
stroke prevention, continue Eliquis which she seems to be tolerating well. Plan is to discharge home on a 2-week monitoring and evaluation advisor to make sure she is not having any conversion pauses contributing to her recent fall.
2. Recent admission with anterolateral ST elevation VA complicated by cardiogenic shock from February 26 until March 06, 2025 where she underwent a mid LAD PCI with a 3.0 x 18 mm Medtronic [place] drug-eluting stent with residual 75 to 80% mid to distal RCA
stenosis just proximal to the bifurcation of the RPDA and the RPL. Continued Plavix. She did short course of triple therapy and is now off aspirin. High intensity statin as well as beta-danny as tolerated.
3. For her ischemic cardiomyopathy, continue optimization of GDMT. Given stable blood pressures will reintroduce enalapril 2.5 mg daily for now while she continues on Toprol-XL as well as Aldactone with close monitoring of blood pressures. Most
recent echocardiogram showing an LVEF of 35 to 40%, improved from the time of the VA on GDMT.
4. She examines euvolemic on exam today so we will plan on continuing p.o. diuretics for now to maintain euvolemia.
5. Defer management of the fracture to primary team.
6. Eventual outpatient plan to stage RCA PCI once she recovers from these acute issues.
7. She will follow-up with her outpatient accessibility lift technician upon discharge. This has been arranged.
We will sign off from a cardiac standpoint. If there is any further questions or concerns, please call us back.
Chelle Arciniega MD, [facility], [facility]
Total time spent: 36mins
Original Note:
Today's Communication / Plan
-
-HRs better controlled on Lopressor 25 mg Q6 hr, switch to Toprol 50 mg bid - I ordered
-decrease Amiodarone to 200 mg daily at time of discharge
-2 week [place] monitor at time of discharge to assess for conversion pauses and assess HR distribution- [facility] will place today, anticipating pt will be discharged over weekend.
-restart Enalapril at lower dose of 2.5 mg daily- I ordered
-f/u at [facility] has been arranged.
Impression / Plan
-
PCP: Mukund Welch
[facility] Machine Feeder: Kem Zavala
Impression:
Right ankle fracture 03/11/2025, bimalleolar Duarte type C, unstable
Paroxysmal atrial fibrillation w/ RVR
Chronic anticoagulation with Eliquis
E.coli UTI
Recent admission w/ anterolateral STEMI and cardiogenic shock 02/26/25 - 03/06/2025
ICM, EF up to 35-40% 03/02/2025
Chronic HFrEF
CAD
acute anterolateral STEMI with 100% thrombotic occlusion of the mid LAD with 3.0 x 18 mm Medtronic [place] EULOGIO, complicated by no reflow treated with rounds of vasodilators 02/26/25
residual 75 to 80% distal RCA stenosis just proximal to the bifurcation of the RPDA and the RPL
Hypertension
Hyperlipidemia
Type 2 diabetes mellitus
h/o TIA
Ambulatory dysfunction, using a cane
Prior falls
Former smoker
Lives alone independently
Echo 08/01/2022: EF 55-60%
Echo 02/26/2025: EF 15-20%, severe global hypokinesis with mid anteroseptal, mid anterior, mid septal, and apical akinesis, stage I diastolic dysfunction, mild MR, mod TR with PAP 54 mmHg
Echo 03/02/2025: EF 35-40%, mild cLVH, anterior, anteroseptal, and apical hypokinesis, false tendon in the LV apex, PFO present w/ L to R shunt, MAC, prolapse of posterior mitral leaflet present, mild MR, mild TR, estimated PAP 27 mmHg
Echo 03/13/2025: EF 35%, stage I diastolic dysfunction, mild posterior MVP with mild to mod MAC, mild MR, mild TR, estimated PAP 24 mmHg,
Plan:
-Presented after fall at home 03/11/2025. Found to have R ankle fracture. Seen by orthopedics and plan is for non-operative management.
-Noted to be in atrial flutter w/ RVR on arrival to ER, and has continued to have paroxysms of atrial fibrillation/flutter this admission.
-Went back into afib 03/16/2025 ~4AM. HRs 110s-130s in afib. Pt asymptomatic.
-EKG 03/16/2025: atrial fibrillation 107 bpm QTc 507msec
-EKG 03/17/2025: atrial fibrillation 89 bpm, QTc 498msec
-on amiodarone 200mg BID. Plan at time of discharge 03/06/2025 was to continue to Amiodarone 200 mg bid x 1 week then decrease to 200 mg daily, however when pt found to be back in afib on 03/11/2025, increased dose back to Amiodarone 200 mg bid -
decrease to 200 mg daily at discharge
-beta danny switched from Coreg to Metoprolol tartrate 25 mg Q6hr on 03/16/2025, with better rate control since then. Transition to Toprol 50 mg bid
-remains in afib, HRs 90s-115bpm.
-pt asymptomatic at rest. A little dizzy when gets up to transfer to [facility].
-Continue to follow on telemetry while admitted.
-Continue Eliquis and Plavix. Completed 1 week of triple therapy following PCI last admission.
-Will discharge w/ 2 [address] monitor in place to continue to follow episodes of afib and assess for possible conversion pauses.
-previous admission 02/26/2025 with ant/lat STEMI w/ cardiogenic shock-had mid LAD PCI with EULOGIO, known residual 75-80% residual mid-distal RCA disease
-plan for eventual staged RCA PCI once recovered from acute issues
-remains CP free this admisison
-EF stable at 35% by echo 03/13/2025 as noted above
-Continue medical management of ischemic CM with spironolactone. Beta danny switched 03/16/2025 from Coreg to Lopressor for better control of afib w/ RVR. Enalapril currently on hold due to lower BPs. Had previously been on 10 mg bid at time of
03/06/2025 discharge. BPs currently 97-127/60-87. Farxiga on hold due to UTI this admission.
-will restart Enalapril at lower dose of 2.5 mg daily
-Appears euvolemic. on Lasix 20 mg daily. Creat stable at 0.8.
-Continue lipitor 40mg daily.
-UTI noted this admission. Farxiga stopped. Can consider resuming as OP. Continue abx per primary service.
-to be discharged to SNF, awaiting bed
HPI: 85-year-old woman with history of paroxysmal atrial fibrillation and prior cerebral hemorrhage/subarachnoid, prior TIA who was admitted to [facility] on February 26 with cardiogenic shock related to a anterior ST segment elevation VA with
mid LAD occlusion. EF 15-20% improved to 35-40% on follow-up echo March 02, peak troponin she required intra-aortic balloon placement, received a 3 x 18 mm Medtronic [place] stents, with no reflow and with 75-80% distal RCA stenosis. She had paroxysmal
atrial fibrillation with conversion to sinus rhythm on amiodarone. She was discharged on March 06, and fell at home today sustaining right ankle fracture. She was in her laundry room, did not trip, was not aware of atrial fibrillation or flutter, but
felt a 'buzzing' in her ear, was very lightheaded and knew she would fall. There was no true loss of consciousness. She has a right ankle by malleolus Duarte type C fracture with instability.
Progress Note - [facility] Machine Feeder
Subjective
Date of Service: March 17, 2025
-remains in afib, HRs 89s-low 100s.
-a little dizzy with position changes
Objective
Labs:
03/17/25 05:26
03/17/25 05:26
Labs
Hgb 12.7 g/dL (12.0-16.0) 03/17/25 05:26
Hct 37.2 % (37.0-47.0) 03/17/25 05:26
Plt Count 400 10^3/uL (130-400) 03/17/25 05:26
Sodium 138 mmol/L (135-145) 03/17/25 05:26
Potassium 4.7 mmol/L (3.5-5.1) 03/17/25 05:26
BUN 30 mg/dl (7-17) H 03/17/25 05:26
Creatinine 0.8 mg/dL (0.6-1.0) 03/17/25 05:26
Glucose 146 mg/dl (70-99) H 03/17/25 05:26
Vital Signs and I&O:
Vital Signs
Temp Pulse Resp BP Pulse Ox
97.7 F 88 14 106/70 97
03/17/25 07:00 03/17/25 07:00 03/17/25 07:00 03/17/25 07:00 03/17/25 07:00
Vital Signs
Temp Pulse Resp BP Pulse Ox
97.7 F 88 14 106/70 97
03/17/25 07:00 03/17/25 07:00 03/17/25 07:00 03/17/25 07:00 03/17/25 07:00
Intake & Output
03/15/25 03/16/25 03/17/25 03/18/25
06:59 06:59 06:59 06:59
Intake Total 1975 / 1975 960 / 960 480 / 480
Output Total 1050 / 1050
Balance 926 / 926 960 / 960 480 / 480
Physical Exam
Physical Exam
GEN: No distress, awake, Ox3
HEENT: supple, anicteric, mmm
LUNGS: CTA, no wheezes/rales
CV: irreg, irreg S1/S2, 1/6 syst LSB, no murmur
ABD: soft, BS+, NT/ND
EXT: No edema. cast RLE above knee
NEURO: Gross non-focal
SKIN: No rash
[2025-03-17] MEDS: LANTUS 0.28 UNITS SC (09:39)
[2025-03-17] MEDS: NOVOLOG FLEXPEN 4 UNITS SC ×3 (09:39→17:43)
[2025-03-17] MEDS: NOVOLOG FLEXPEN-MODERATE RESISTANCE 1 UNITS SC (09:40)
[2025-03-17] MEDS: LASIX 20 MG PO (09:41)
[2025-03-17] MEDS: THERAGRAN 1 TABLET PO (09:41)
[2025-03-17] MEDS: ELIQUIS 5 MG PO ×2 (09:41→19:39)
[2025-03-17] MEDS: PLAVIX 75 MG PO (09:41)
[2025-03-17] MEDS: OSCAL CAL 500 500 MG PO ×2 (09:41→19:39)
[2025-03-17] MEDS: LEXAPRO 10 MG PO (09:41)
[2025-03-17] MEDS: ALDACTONE 12.5 MG PO (09:41)
[2025-03-17] MEDS: PACERONE 200 MG PO ×2 (09:42→19:39)
[2025-03-17] MEDS: STERILE WATER FOR INJECTION 10 ML IV (11:02)
[2025-03-17] MEDS: ROCEPHIN 1000 MG IV (11:02)
--- NOTE | 2025-03-17 11:50 | W.PN.HOSP.TC ---
Today's Communication/Plan
-
HR control-cont lopressor/amiodarone
ongoing dispo efforts
cards recs
Assessment / Plan
Assessment / Plan
#Acute bimalleolar Duarte C ankle fracture
#Osteoporosis
-Likely a traumatic fall superimposed on osteoporosis with underlying chronic disequilibrium
-Patient had mechanical fall while in her laundry room, preceded by ringing in her ears; has chronic instability
-Question if she has underlying M�ni�re's disease with disequilibrium and tinnitus; low suspicion for syncopal process
-X-ray here showing unstable Duarte type C ankle fracture on the right, orthopedics consulted
-Due to recent LAD STEMI and PCI, distal RCA lesion surgical correction was deemed too high risk
-Orthopedics planning for conservative approach, cast placed, will follow-up in office with orthopedics in 2
-Resumed DOAC, Plavix, WALDEMAR inhibitor on 03/12
-Provide PRN antiemetics and analgesics
-PT consult and OOB
#Atrial flutter
#Paroxysmal AF on Eliquis
-Home regimen includes carvedilol, amiodarone, and DOAC (amiodarone load to finish 03/13)
went back into afib RVR
Amiodarone increased to 200 mg twice daily
off Coreg and now started lopressor 25mg Q6h-hr improving
Continue anticoagulation with Eliquis
#HFrEF (LVEW35%)
#Ischemic cardiomyopathy
#CAD s/p LAD PCI (01/2025)
-Home GDMT with carvedilol, ACEi, MRA, SGLT2i, DAPT and statin following recent STEMI
BP remains marginal.
Noted with hyperkalemia on 03/14
Received Lasix on 03/14
Follow BMP and hemodynamics closely.
Consider to hold WALDEMAR
Repeat echocardiogram to reassess LV function EF of 35%
Cont lasix 20mg daily.
Urinary tract infection
Complains of dysuria.
Has mild leukocytosis
Afebrile. Nontoxic-appearing. No evidence of systemic infection.
Urine culture over recent admission with E. coli.
Repeat urine culture with E. coli pending final sensitivities noted-sheriff sensitive
Initiated on ceftriaxone with improvement of symptoms
Would hold SGLT2 inhibitor at this point until complete resolution of UTI.
#GERD
-No known history of Dennis's esophagus or erosive esophagitis
-Home medications include no PPI or antihistamines
-Will monitor for symptoms here
#IDDM C/B neuropathy
-Poorly controlled with last A1c 8.6%; complicated by neuropathy and likely associated with ASCVD
-Home medications include Lantus 28 units daily, glipizide 5 mg BID, metformin 1 g BID, SGLT2i
-Will continue with 28u Lantus
Hold SGLT2 inhibitor given UTI.
Initiate aspart 4 AC
Continue basal bolus protocol adjusting
#Hypertension
-No known history of hypertensive systemic disease
-Currently on carvedilol,
-on hold ACEI, MRA, SGLT2i as above for HFrEF
-Per patient her regimen has recently been de-escalated due to hypotension
-Blood pressure here stable, will monitor on current regimen
#Dyslipidemia
-Has history of ASCVD as above with LAD PCI recently
-Home medications include high intensity statin
-Most recent FLP with LDL 44; goal LDL < 55
#History of ectopic
#History of lumbosacral radiculopathy
#History of transient ischemic attack
DVT prophylaxis: eliquis
CODE STATUS: Full code
PT/OT-SNF once HR improves and bed found
Anticipated Discharge: Within 24 hours
Subjective/Interval History
-
Date of Service: March 17, 2025
Remains in afib-hr slowed down.
Remains in 110-120s better compared to yesterday 130-140s
Objective Data
-
Labs:
Laboratory Results
03/17/25
05:26
WBC 11.6 H
Hgb 12.7
Hct 37.2
Plt Count 400
Sodium 138
Potassium 4.7
Chloride 107
Carbon Dioxide 22
BUN 30 H
Creatinine 0.8
Glucose 146 H
Calcium 10.4 H
Vital Signs:
Vital Signs
Temp Pulse Resp BP Pulse Ox
97.5 F 82 18 108/58 100
03/17/25 11:20 03/17/25 11:20 03/17/25 11:20 03/17/25 11:20 03/17/25 11:20
I&O
03/16/25 03/17/25 03/18/25
06:59 06:59 06:59
Intake Total 960 / 960 480 / 480
Balance 960 / 960 480 / 480
Physical Exam
-
General: Comfortable
HEENT: Normocephalic and Atraumatic
Respiratory: Non Labored Respirations and Decreased Breath Sounds; Negative Accessory Resp Muscle Use
Cardiac: S1/S2, Irregular Rhythm and Tachycardic
GI: Nondistended
Musculoskeletal: No Clubbing, No Edema and Other (RLE in cast noted )
Neuro: Awake and AO x 3
Psych: Calm
[2025-03-17 12:02] LABS: Glucose - Point of Care 273 mg/dl (70-99)
[2025-03-17] MEDS: NOVOLOG FLEXPEN-MODERATE RESISTANCE 5 UNITS SC (12:42)
[2025-03-17] MEDS: VASOTEC 2.5 MG PO (12:43)
--- NOTE | 2025-03-17 14:18 | CM ---
CM following re: discharge planning.
reviewed pt's chart, met with pt.
According to [pt possibly will be ready for discharge tomorrow. Pt is aware, expressed her agreement. IMM mikhail, placed on [facility], pt has a copy.
Pt has been informed that both [facility] and [facility] offered a bed and pt preferred [facility].
CM spoke to [facility] facilities director and she confirmed they will have a bed available for pt tomorrow or Thursday.
[facility] nursing report: [phone]
Discharge instructions fax: [phone]
D/C plan: [facility] when medically stable.
CM will follow to assit pt with discharge to [facility].
[2025-03-17 17:22] LABS: Glucose - Point of Care 138 mg/dl (70-99)
[2025-03-17] MEDS: NOVOLOG FLEXPEN-MODERATE RESISTANCE SC (17:43)
[2025-03-17] MEDS: LIPITOR 40 MG PO (17:48)
[2025-03-17 21:19] LABS: Glucose - Point of Care 213 mg/dl (70-99)
[2025-03-18 03:21] VITALS: BP 99/56
[2025-03-18 06:00] VITALS: BMI 27.5
[2025-03-18] MEDS: LOPRESSOR 25 MG PO ×4 (06:18→23:41)
[2025-03-18 07:01] LABS: Glucose - Point of Care 159 mg/dl (70-99)
[2025-03-18 07:12] LABS: % Basophils 1.1 % (0-2); % Eosinophils 4.3 % (0-6); % Immature Granulocytes 0.3 % (0-0.5); % Lymphocytes 20.5 % (20.5-51.1); % Monocytes 6.4 % (1.7-9.3); % Neutrophils 67.4 % (42.2-75.2); Absolute Basophils 0.1 10^3/uL (0-0.2); Absolute Eosinophils 0.4 10^3/uL (0-0.7); Absolute Lymphocytes 1.9 10^3/uL (1.2-3.4); Absolute Monocytes 0.6 10^3/uL (0.1-0.6); Absolute Neutrophils 6.3 10^3/uL (1.4-6.5); Hemoglobin 11.7 g/dL (12.0-16.0); Mean Corp Hgb Conc. 33.4 g/dL (33.0-37.0); Mean Corpuscular Hgb 30.8 pg (27.0-31.0); Mean Corpuscular Volume 92.1 fL (81.0-99.0); Mean Platelet Volume 10.2 fL (7.4-10.4); Nucleated Red Blood Cells % 0 %; Platelet Count 354 10^3/uL (130-400); Red Cell Dist. Width 13.6 % (11.5-14.5); White Blood Cell Count 9.3 10^3/uL (4.8-10.8)
[2025-03-18 07:15] VITALS: BP 109/63
[2025-03-18 07:42] LABS: Blood Urea Nitrogen 28 mg/dl (7-17); Calcium 9.9 mg/dl (8.4-10.2); Carbon Dioxide 23 mmol/L (22-30); Chloride 105 mmol/L (98-107); Estimated Creatinine Clearance 55 ml/min; Glucose 153 mg/dl (70-99); Potassium 4.7 mmol/L (3.5-5.1); Sodium 136 mmol/L (135-145); eGFR > 60.00
[2025-03-18] MEDS: NOVOLOG FLEXPEN 4 UNITS SC ×3 (08:18→17:17)
[2025-03-18] MEDS: VASOTEC 2.5 MG PO (08:18)
[2025-03-18] MEDS: NOVOLOG FLEXPEN-MODERATE RESISTANCE 1 UNITS SC ×2 (08:18→17:17)
[2025-03-18] MEDS: LANTUS 0.28 UNITS SC (08:18)
[2025-03-18] MEDS: PACERONE 200 MG PO ×2 (08:19→20:42)
[2025-03-18] MEDS: LASIX 20 MG PO (08:19)
[2025-03-18] MEDS: PLAVIX 75 MG PO (08:19)
[2025-03-18] MEDS: ALDACTONE 12.5 MG PO (08:19)
[2025-03-18] MEDS: LEXAPRO 10 MG PO (08:20)
[2025-03-18] MEDS: ELIQUIS 5 MG PO ×2 (08:20→20:42)
[2025-03-18] MEDS: OSCAL CAL 500 500 MG PO ×2 (08:20→20:42)
[2025-03-18] MEDS: THERAGRAN 1 TABLET PO (08:22)
[2025-03-18] MEDS: ROCEPHIN 1000 MG IV (08:26)
[2025-03-18] MEDS: STERILE WATER FOR INJECTION 10 ML IV (08:26)
[2025-03-18 11:00] VITALS: BP 104/59; BP 105/63; BP 117/68; PULSE 79; PULSE 80; PULSE 88
[2025-03-18 11:15] LABS: Glucose - Point of Care 306 mg/dl (70-99)
[2025-03-18] MEDS: NOVOLOG FLEXPEN-MODERATE RESISTANCE 7 UNITS SC (12:44)
--- NOTE | 2025-03-18 14:13 | W.PN.HOSP.TC ---
Addendum entered and electronically signed by Anuja Vazquez MD 03/19/25 05:50:
Physical Exam
General: No acute distress, appears comfortable at this time
HEENT: Normocephalic and Atraumatic, moist mucus membrane
Respiratory: Clear to Auscultation B/L
Cardiac: S1/S2, Irregular Rhythm, hr controlled
GI: Nondistended, soft, bowel sounds present
Musculoskeletal: No Clubbing, No Edema and Other (RLE in cast noted )
Neuro: AO x 3 conversant coherent
Psych: Calm
Original Note:
Today's Communication/Plan
-
Discharge tomorrow SNF rehab after last dose of abx for UTI
Assessment / Plan
Assessment / Plan
#Acute bimalleolar Duarte C ankle fracture
#Osteoporosis
-Likely a traumatic fall superimposed on osteoporosis with underlying chronic disequilibrium
-Patient had mechanical fall while in her laundry room, preceded by ringing in her ears; has chronic instability
-Question if she has underlying M�ni�re's disease with disequilibrium and tinnitus; low suspicion for syncopal process
-X-ray here showing unstable Duarte type C ankle fracture on the right, orthopedics consulted
-Due to recent LAD STEMI and PCI, distal RCA lesion surgical correction was deemed too high risk
-Orthopedics recommend conservative approach, cast placed, follow-up in office with orthopedics in 2 wks
-Resumed DOAC, Plavix, WALDEMAR inhibitor on 03/12
-Provide PRN antiemetics and analgesics
-PT consult and OOB
#Atrial flutter
#Paroxysmal AF on Eliquis
-Home regimen includes carvedilol, amiodarone, and DOAC (amiodarone load to finish 03/13)
went back into afib RVR
Amiodarone increased to 200 mg twice daily
off Coreg and now started lopressor 25mg Q6h-hr improving
Continue anticoagulation with Eliquis
#HFrEF (LVEW35%)
#Ischemic cardiomyopathy
#CAD s/p LAD PCI (01/2025)
-Home GDMT with carvedilol, ACEi, MRA, SGLT2i, DAPT and statin following recent STEMI
BP remains marginal.
Noted with hyperkalemia on 03/14
Received Lasix on 03/14
Follow BMP and hemodynamics closely.
Consider to hold WALDEMAR
Repeat echocardiogram to reassess LV function EF of 35%
Cont lasix 20mg daily.
Urinary tract infection
Complains of dysuria.
Has mild leukocytosis
Afebrile. Nontoxic-appearing. No evidence of systemic infection.
Urine culture over recent admission with E. coli.
Repeat urine culture with E. coli sensitivities appreciated. Patient's allergy profile to multiple abx also noted, limits oral abx options
Initiated on ceftriaxone with improvement of symptoms, 03/19/25 last day for abx total 7 days
Would hold SGLT2 inhibitor at this point until complete resolution of UTI.
#GERD
-No known history of Dennis's esophagus or erosive esophagitis
-Home medications include no PPI or antihistamines
-Will monitor for symptoms here
#IDDM C/B neuropathy
-Poorly controlled with last A1c 8.6%; complicated by neuropathy and likely associated with ASCVD
-Home medications include Lantus 28 units daily, glipizide 5 mg BID, metformin 1 g BID, SGLT2i
-Will continue with 28u Lantus
Hold SGLT2 inhibitor given UTI.
Aspart 4U AC
Continue basal bolus protocol adjusting
#Hypertension
-No known history of hypertensive systemic disease
-Currently on carvedilol,
-on hold ACEI, MRA, SGLT2i as above for HFrEF
-Per patient her regimen has recently been de-escalated due to hypotension
-Blood pressure here stable, will monitor on current regimen
#Dyslipidemia
-Has history of ASCVD as above with LAD PCI recently
-Home medications include high intensity statin
-Most recent FLP with LDL 44; goal LDL < 55
#History of ectopic
#History of lumbosacral radiculopathy
#History of transient ischemic attack
DVT prophylaxis: eliquis
CODE STATUS: Full code
PT/OT-SNF
Discussed with patient and patient's Granddaughter Carmen
I spent a total of 37 minutes with the patient or on the floor. More than 50% of this time involved counseling and coordination of care.
Anticipated Discharge: Within 24 hours
Subjective/Interval History
-
Date of Service: March 18, 2025
no acute distress, overall reports feeling well. Denies new acute issues at this time.
Objective Data
-
Labs:
Laboratory Results
03/18/25
05:34
WBC 9.3
Hgb 11.7 L
Hct 35.0 L
Plt Count 354
Sodium 136
Potassium 4.7
Chloride 105
Carbon Dioxide 23
BUN 28 H
Creatinine 0.8
Glucose 153 H
Calcium 9.9
Vital Signs:
Vital Signs
Temp Pulse Resp BP Pulse Ox
97.9 F 79 16 105/63 97
03/18/25 11:00 03/18/25 12:48 03/18/25 11:00 03/18/25 12:48 03/18/25 11:00
I&O
03/17/25 03/18/25 03/19/25
06:59 06:59 06:59
Intake Total 480 / 480 1320 / 1320 660 / 660
Output Total 300 / 300
Balance 480 / 480 1320 / 1320 360 / 360
[2025-03-18 15:00] VITALS: BP 100/52
[2025-03-18 16:27] LABS: Glucose - Point of Care 172 mg/dl (70-99)
[2025-03-18] MEDS: LIPITOR 40 MG PO (17:16)
[2025-03-18 19:46] VITALS: BP 101/64
[2025-03-18 23:30] VITALS: BP 108/59
[2025-03-19 03:26] VITALS: BP 101/59
[2025-03-19 06:00] VITALS: BMI 27.6
[2025-03-19] MEDS: LOPRESSOR 25 MG PO ×3 (06:01→17:07)
[2025-03-19 07:15] VITALS: BP 125/73
--- NOTE | 2025-03-19 07:31 | W.PN.HOSP.TC ---
Today's Communication/Plan
-
discharge
Assessment / Plan
Assessment / Plan
Physical Exam
General: No acute distress, appears comfortable at this time
HEENT: Normocephalic and Atraumatic, moist mucus membrane
Respiratory: Clear to Auscultation B/L
Cardiac: S1/S2, Irregular Rhythm, hr controlled
GI: Nondistended, soft, bowel sounds present
Musculoskeletal: No Clubbing, No Edema, RLE in cast in place
Neuro: AO x 3 conversant coherent
Psych: Calm
#Acute bimalleolar Duarte C ankle fracture
#Osteoporosis
-Likely a traumatic fall superimposed on osteoporosis with underlying chronic disequilibrium
-Patient had mechanical fall while in her laundry room, preceded by ringing in her ears; has chronic instability
-Question if she has underlying M�ni�re's disease with disequilibrium and tinnitus; low suspicion for syncopal process
-X-ray here showing unstable Duarte type C ankle fracture on the right, orthopedics consulted
-Due to recent LAD STEMI and PCI, distal RCA lesion surgical correction was deemed too high risk
-Orthopedics recommend conservative approach, cast placed, follow-up in office with orthopedics in 2 wks
-Resumed DOAC, Plavix, WALDEMAR inhibitor on 03/12
-Provide PRN antiemetics and analgesics
-PT consult and OOB
#Atrial flutter
#Paroxysmal AF on Eliquis
-Home regimen includes carvedilol, amiodarone, and DOAC (amiodarone load to finish 03/13)
went back into afib RVR
Amiodarone increased to 200 mg twice daily
off Coreg and now started lopressor 25mg Q6h-hr improving
Continue anticoagulation with Eliquis
#HFrEF (LVEW35%)
#Ischemic cardiomyopathy
#CAD s/p LAD PCI (01/2025)
-Home GDMT with carvedilol, ACEi, MRA, SGLT2i, DAPT and statin following recent STEMI
BP remains marginal.
Noted with hyperkalemia on 03/14
Received Lasix on 03/14
Follow BMP and hemodynamics closely.
Consider to hold WALDEMAR
Repeat echocardiogram to reassess LV function EF of 35%
Cont lasix 20mg daily.
Urinary tract infection
Complains of dysuria.
Has mild leukocytosis
Afebrile. Nontoxic-appearing. No evidence of systemic infection.
Urine culture over recent admission with E. coli.
Repeat urine culture with E. coli sensitivities appreciated. Patient's allergy profile to multiple abx also noted, limits oral abx options
Initiated on ceftriaxone with improvement of symptoms, 03/19/25 completed 7 days abx treatment
Would hold SGLT2 inhibitor at this point until complete resolution of UTI.
#GERD
-No known history of Dennis's esophagus or erosive esophagitis
-Home medications include no PPI or antihistamines
-asymptomatic during stay
#IDDM C/B neuropathy
-Poorly controlled with last A1c 8.6%; complicated by neuropathy and likely associated with ASCVD
-Home medications include Lantus 28 units daily, glipizide 5 mg BID, metformin 1 g BID, SGLT2i
-continued with 28u Lantus
SGLT2 inhibitor discontinued due to UTI
Aspart 4U AC
Continue basal bolus protocol
#Hypertension
-No known history of hypertensive systemic disease
-previously on carvedilol switched to metoprolol as per Cardio
-enalapril reduced to 2.5 d/t hypotension
-cont home Lasix
#Dyslipidemia
-Has history of ASCVD as above with LAD PCI recently
-Home medications include high intensity statin
-Most recent lipid profile with LDL 44; goal LDL < 55
#History of ectopic
#History of lumbosacral radiculopathy
#History of transient ischemic attack
DVT prophylaxis: eliquis
CODE STATUS: Full code
PT/OT-SNF
Medically stable for discharge SNF rehab with outpatient follow up recommendations
Discussed with patient and patient's Granddaughter Carmen
Total Time Preparing Discharge ___40____ minutes including examination of the patient, summary of the hospital stay, instructions for continuing care to all relevant caregivers; and preparation of discharge records, prescriptions, and referral
forms if necessary.
Anticipated Discharge: Today
Subjective/Interval History
-
Date of Service: March 19, 2025
Seen and examined at bedside in no acute distress sitting up comfortably in bed. Overall reports feeling well. Denies new acute issues. Looking forward to going to Rehab.
Objective Data
-
Vital Signs:
Vital Signs
Temp Pulse Resp BP Pulse Ox
97.7 F 77 16 125/73 100
03/19/25 07:15 03/19/25 07:15 03/19/25 07:15 03/19/25 07:15 03/19/25 07:15
I&O
03/18/25 03/19/25 03/20/25
06:59 06:59 06:59
Intake Total 1320 / 1320 1416 / 1416
Output Total 300 / 300
Balance 1320 / 1320 1116 / 1116
[2025-03-19 07:38] LABS: Glucose - Point of Care 155 mg/dl (70-99)
[2025-03-19] MEDS: LASIX 20 MG PO (08:36)
[2025-03-19] MEDS: LEXAPRO 10 MG PO (08:36)
[2025-03-19] MEDS: PLAVIX 75 MG PO (08:36)
[2025-03-19] MEDS: VASOTEC 2.5 MG PO (08:36)
[2025-03-19] MEDS: OSCAL CAL 500 500 MG PO (08:37)
[2025-03-19] MEDS: ALDACTONE 12.5 MG PO (08:37)
[2025-03-19] MEDS: PACERONE 200 MG PO (08:37)
[2025-03-19] MEDS: ELIQUIS 5 MG PO (08:37)
[2025-03-19] MEDS: THERAGRAN 1 TABLET PO (08:37)
[2025-03-19] MEDS: NOVOLOG FLEXPEN-MODERATE RESISTANCE 1 UNITS SC (08:38)
[2025-03-19] MEDS: LANTUS 0.28 UNITS SC (08:38)
[2025-03-19] MEDS: NOVOLOG FLEXPEN 4 UNITS SC ×3 (08:39→17:07)
[2025-03-19] MEDS: STERILE WATER FOR INJECTION 10 ML IV (10:28)
[2025-03-19] MEDS: ROCEPHIN 1000 MG IV (10:28)
[2025-03-19 11:00] VITALS: BP 110/59
[2025-03-19 11:22] VITALS: BP 110/59; BP 111/62; PULSE 78
[2025-03-19 12:24] LABS: Glucose - Point of Care 137 mg/dl (70-99)
[2025-03-19 12:27] LABS: Glucose - Point of Care 350 mg/dl (70-99)
--- NOTE | 2025-03-19 13:05 | CM ---
Addendum entered by Margy Mayers 03/19/25 15:00:
transport scheduled for 0. Carmen contacted and updated.
Addendum entered by Margy Mayers 03/19/25 13:49:
Pt updated re: transfer today. She requests call to granddaughter Carmen once time is arranged for transport.
[phone].
Original Note:
CM following re: d/c planning.
Pt for tentative d/c today. Plan is for SNF at [facility].
Call placed to Natali to ensure bed available today, she confirmed it is ready for pt after 4pm today.
updated.
RN report: [phone]
fax: [phone]
Goal : transfer to [facility] at d/c.
[2025-03-19] MEDS: NOVOLOG FLEXPEN-MODERATE RESISTANCE 9 UNITS SC (13:23)
--- NOTE | 2025-03-19 13:53 | W.DCSUMMARY ---
Discharge Summary
Discharge Data
Date of Admission: 03/11/25
Date of Discharge: 03/19/25
-
Pending Results: No
Discharge Plan
-
Patient Disposition: [facility]/SNF
Discharge Diagnosis/Procedures: Acute Right bimalleolar Duarte C ankle fracture -Likely a traumatic fall superimposed on osteoporosis with underlying chronic disequilibrium
Osteoporosis
Atrial flutter
Paroxysmal Atrial fibrillation with rapid ventricular response
E.coli Urinary tract infection
Heart Failure Reduced Ejection Fraction
Coronary Artery Disease
Diabetes with neuropathy
Hypertension
Condition: Fair
Diet: Low Cholesterol, 2 Gram Sodium and Diabetic, Carb Controlled
Activity: With assistance, Do not bear weight R leg and With Walker
Driving Restrictions: Not until seen by your Dr
Blood Work: repeat CBC and BMP with primary care provider in 1 week of discharge.
Other Services: PT and OT
Activity Restrictions/Additional Instructions:
Follow up with primary care provider in 1 week of discharge, orthopedics in 2 weeks, and keep your Appointment with Cardiology.
Amiodarone reduced to daily dosing for aflutter/afib as per cardio recommendations.
Enalapril reduced to 2.5 mg daily due to hypotension.
Similarly Coreg switched to metoprolol due to hypotension and for better rate control aflutter/afib
Farxiga discontinued due to urinary tract infection
Please take medications as prescribed/recommended and follow up with primary care provider and/or other healthcare provider involved in your care for refills and/or further adjustment to your medication regimen as necessary.
Referrals:
Mukund Welch PA-C [Family Provider] - in less than 1 week
Abelino Jackson MD [Active] - in two weeks (call to make appointment for follow up. )
Natali Dunn CRNP [Specified Professional Personl] - 04/06/25 11:00 am (you have a followup appointment with Dr Zavala's nurse practitioner, Natali Dunn, at the [place] office. Please call with questions.)
Prescriptions:
New
enalapril maleate 2.5 mg Tablet
2.5 mg PO DAILY Qty: 30 0RF
metoprolol tartrate 25 mg Tablet
25 mg PO Q6 Qty: 120 0RF
Continued
metformin 1,000 MG tablet
1,000 mg PO BID
escitalopram oxalate 10 MG tablet
10 mg PO DAILY
Eliquis 5 mg Tablet
5 mg PO BID
spironolactone 25 mg Tablet
25 mg PO DAILY Qty: 30 11RF
atorvastatin 40 mg Tablet
40 mg PO QPM Qty: 30 11RF
furosemide 20 mg Tablet
20 mg PO DAILY Qty: 30 11RF
clopidogrel 75 mg Tablet
75 mg PO DAILY Qty: 30 11RF
insulin glargine [Lantus U-100 Insulin] 100 unit/mL solution
28 unit SC DAILY Qty: 10 3RF
therapeutic multivitamin Tablet
1 tab PO DAILY
calcium carbonate 500 mg calcium (1,250 mg) Tablet
500 mg PO BID
glipizide 5 mg tablet
5 mg PO BID
Changed
amiodarone 200 mg tablet
200 mg PO DAILY Qty: 14 0RF
Discontinued
cinnamon bark [Cinnamon] 500 MG capsule
500 mg PO DAILY
dapagliflozin propanediol 10 mg Tablet
10 mg PO DAILY Qty: 30 11RF
carvedilol 3.125 mg Tablet
3.125 mg PO BID
enalapril maleate 10 mg tablet
10 mg PO QPM
Discharge Orders:
Discharge Patient (As Directed); Ordered 03/19/25
Ordered By: Anuja Vazquez
Discharge Date and Time
Print Language: [place] CITIZEN
[2025-03-19 15:24] VITALS: BP 105/56
--- NOTE | 2025-03-19 15:24 | PTCARENOTE ---
RN attempted to call report to Anthony, phone went to voicemail. Voicemail left with call back number. RN awaiting call back. Care remains ongoing.
[2025-03-19 16:59] LABS: Glucose - Point of Care 260 mg/dl (70-99)
[2025-03-19] MEDS: NOVOLOG FLEXPEN-MODERATE RESISTANCE 5 UNITS SC (17:05)
[2025-03-19] MEDS: LIPITOR 40 MG PO (17:07)
== END 2025-03-19 17:20 | DRG 542 ==
LOC: 2 SOUTH 15:51
PROVIDERS: Hospitalist; Internal Medicine; Registered Nurse; ADMITTING PHYSICIAN Internal Medicine; ATTENDING PHYSICIAN Internal Medicine; CONSULT PHYSICIAN Internal Medicine Cardiovascular Disease; CONSULT PHYSICIAN Student in an Organized Health Care Education/Training Program; EMERGENCY PHYSICIAN Emergency Medicine; FAMILY PHYSICIAN Physician Assistant Medical
DX: M80.072A Age-related osteoporosis with current pathological fracture, left ankle and foot, initial encounter for fracture (principal); I50.23 Acute on chronic systolic (congestive) heart failure; I48.92 Unspecified atrial flutter; N39.0 Urinary tract infection, site not specified; I48.0 Paroxysmal atrial fibrillation; I25.5 Ischemic cardiomyopathy; Z79.82 Long term (current) use of aspirin; Z87.891 Personal history of nicotine dependence; K21.9 Gastro-esophageal reflux disease without esophagitis; E11.40 Type 2 diabetes mellitus with diabetic neuropathy, unspecified; Z79.4 Long term (current) use of insulin; I11.0 Hypertensive heart disease with heart failure; E78.00 Pure hypercholesterolemia, unspecified; Z60.2 Problems related to living alone; E87.5 Hyperkalemia; Z79.02 Long term (current) use of antithrombotics/antiplatelets; I25.10 Atherosclerotic heart disease of native coronary artery without angina pectoris; Z79.01 Long term (current) use of anticoagulants
CPT/HCPCS: 93308; 27762; 70450; 71046; 73610; 80048; 80053; 81003; 81015; 82550; 82962; 83735; 83880; 85025; 87077; 87086; 87186; 93005; 93321; 93325; 96360; 97110; 97163; 97167; 97530; 97535; 99285

== ENCOUNTER → 2025-03-23 11:16 | Outpatient (REF) | payer MEDICARE, SELFPAY ==
[2025-03-23 11:49] LABS: Hematocrit 33.2 % (37.0-47.0); Hemoglobin 11.1 g/dL (12.0-16.0); Mean Corp Hgb Conc. 33.4 g/dL (33.0-37.0); Mean Corpuscular Hgb 31.4 pg (27.0-31.0); Mean Corpuscular Volume 94.1 fL (81.0-99.0); Mean Platelet Volume 10.3 fL (7.4-10.4); Platelet Count 264 10^3/uL (130-400); Red Blood Cell Count 3.53 10^6/uL (4.20-5.40); Red Cell Dist. Width 14.1 % (11.5-14.5); White Blood Cell Count 7.4 10^3/uL (4.8-10.8)
[2025-03-23 11:59] LABS: Blood Urea Nitrogen 18 mg/dl (7-17); Calcium 9.8 mg/dl (8.4-10.2); Carbon Dioxide 24 mmol/L (22-30); Chloride 110 mmol/L (98-107); Glucose 88 mg/dl (70-99); Magnesium 1.4 mg/dl (1.6-2.3); Potassium 5.1 mmol/L (3.5-5.1); Sodium 138 mmol/L (135-145); eGFR > 60.00
== END ==
LOC: OLABWHC 11:16
PROVIDERS: ATTENDING PHYSICIAN Family Medicine
DX: I10 Essential (primary) hypertension (principal)
CPT/HCPCS: 80048; 83735; 85027

== ENCOUNTER → 2025-04-07 09:28 | Outpatient (REF) | payer MEDICARE, SELFPAY ==
[2025-04-07 11:37] LABS: % Basophils 1.5 % (0-2); % Eosinophils 7.4 % (0-6); % Immature Granulocytes 0.3 % (0-0.5); % Lymphocytes 24.9 % (20.5-51.1); % Monocytes 7.7 % (1.7-9.3); % Neutrophils 58.2 % (42.2-75.2); Absolute Basophils 0.1 10^3/uL (0-0.2); Absolute Eosinophils 0.6 10^3/uL (0-0.7); Absolute Lymphocytes 1.9 10^3/uL (1.2-3.4); Absolute Monocytes 0.6 10^3/uL (0.1-0.6); Absolute Neutrophils 4.3 10^3/uL (1.4-6.5); Hematocrit 35.5 % (37.0-47.0); Hemoglobin 11.7 g/dL (12.0-16.0); Mean Corpuscular Hgb 31.6 pg (27.0-31.0); Mean Corpuscular Volume 95.9 fL (81.0-99.0); Mean Platelet Volume 11.1 fL (7.4-10.4); Nucleated Red Blood Cells % 0 %; Platelet Count 253 10^3/uL (130-400); Red Cell Dist. Width 13.6 % (11.5-14.5); White Blood Cell Count 7.4 10^3/uL (4.8-10.8)
[2025-04-07 11:42] LABS: ALT (SGPT) 14 U/L (0-35); AST (SGOT) 20 U/L (14-36); Albumin 3.6 g/dl (3.5-5.0); Alkaline Phosphatase 60 U/L (38-126); Blood Urea Nitrogen 16 mg/dl (7-17); Calcium 9.5 mg/dl (8.4-10.2); Carbon Dioxide 23 mmol/L (22-30); Chloride 108 mmol/L (98-107); Glucose 126 mg/dl (70-99); Potassium 4.8 mmol/L (3.5-5.1); Sodium 138 mmol/L (135-145); Total Bilirubin 0.6 mg/dl (0.2-1.3); Total Protein 5.9 g/dl (6.3-8.2); eGFR > 60.00
[2025-04-07 12:11] LABS: TSH 1.92 uIU/ml (0.47-4.68)
== END ==
LOC: OLABWHC 09:28
PROVIDERS: ATTENDING PHYSICIAN Family Medicine
DX: I10 Essential (primary) hypertension (principal); E78.9 Disorder of lipoprotein metabolism, unspecified; E10.40 Type 1 diabetes mellitus with diabetic neuropathy, unspecified
CPT/HCPCS: 36415; 80053; 84443; 85025

== ENCOUNTER → 2025-05-01 11:24 | Outpatient (REF) | payer MEDICARE, SELFPAY ==
[2025-05-01 14:22] LABS: AST (SGOT) 23 U/L (14-36); Albumin 4.7 g/dl (3.5-5.0); Alkaline Phosphatase 73 U/L (38-126); Blood Urea Nitrogen 26 mg/dl (7-17); Carbon Dioxide 23 mmol/L (22-30); Chloride 105 mmol/L (98-107); Glucose 135 mg/dl (70-99); Total Bilirubin 0.9 mg/dl (0.2-1.3); Total Protein 7.6 g/dl (6.3-8.2); eGFR > 60.00
[2025-05-01 14:31] LABS: ALT (SGPT) 20 U/L (0-35); Calcium 10.2 mg/dl (8.4-10.2); Sodium 138 mmol/L (135-145)
[2025-05-01 15:07] LABS: Potassium 4.8 mmol/L (3.5-5.1)
== END ==
LOC: CLAB 11:24
PROVIDERS: ATTENDING PHYSICIAN Physician Assistant Medical
DX: E87.5 Hyperkalemia (principal); E83.52 Hypercalcemia
CPT/HCPCS: 80053

== ENCOUNTER → 2025-06-06 10:10 | Outpatient (REF) | payer MEDICARE, SELFPAY ==
[2025-06-06 11:25] LABS: ALT (SGPT) 19 U/L (0-35); AST (SGOT) 20 U/L (14-36); Albumin 4.1 g/dl (3.5-5.0); Alkaline Phosphatase 66 U/L (38-126); Blood Urea Nitrogen 18 mg/dl (7-17); Calcium 10.4 mg/dl (8.4-10.2); Carbon Dioxide 25 mmol/L (22-30); Chloride 103 mmol/L (98-107); Glucose 145 mg/dl (70-99); Potassium 4.8 mmol/L (3.5-5.1); Sodium 136 mmol/L (135-145); Total Protein 6.7 g/dl (6.3-8.2); eGFR > 60.00
== END ==
LOC: CLAB 10:10
PROVIDERS: ATTENDING PHYSICIAN Physician Assistant Medical
DX: E11.69 Type 2 diabetes mellitus with other specified complication (principal)
CPT/HCPCS: 36415; 80053; 83970

== ENCOUNTER → 2025-06-07 11:26 | Outpatient (REF) | payer MEDICARE, SELFPAY | LOC: REG 11:26 | PROVIDERS: ATTENDING PHYSICIAN Physician Assistant Medical | DX: E83.52 Hypercalcemia (principal) | CPT/HCPCS: 36415; 82330 ==

== ENCOUNTER → 2025-07-27 13:39 | Outpatient (REF) | payer MEDICARE, SELFPAY | LOC: RCS 13:39 | PROVIDERS: ATTENDING PHYSICIAN Internal Medicine Cardiovascular Disease; FAMILY PHYSICIAN Physician Assistant Medical | DX: I48.0 Paroxysmal atrial fibrillation (principal) | CPT/HCPCS: 93306 ==

== ENCOUNTER → 2025-08-11 11:11 | Outpatient (REF) | payer MEDICARE, SELFPAY ==
[2025-08-11 12:45] LABS: Hematocrit 38.7 % (37.0-47.0); Hemoglobin 13.5 g/dL (12.0-16.0); Mean Corp Hgb Conc. 34.9 g/dL (33.0-37.0); Mean Corpuscular Volume 95.1 fL (81.0-99.0); Nucleated Red Blood Cells % 0 %; Platelet Count 328 10^3/uL (130-400); Red Cell Dist. Width 13.9 % (11.5-14.5)
[2025-08-11 13:32] LABS: ALT (SGPT) 24 U/L (0-35); AST (SGOT) 23 U/L (14-36); Albumin 4.6 g/dl (3.5-5.0); Alkaline Phosphatase 72 U/L (38-126); Blood Urea Nitrogen 23 mg/dl (7-17); Calcium 9.9 mg/dl (8.4-10.2); Carbon Dioxide 24 mmol/L (22-30); Chloride 103 mmol/L (98-107); Glucose 168 mg/dl (70-99); Potassium 4.5 mmol/L (3.5-5.1); Sodium 137 mmol/L (135-145); Total Protein 7.0 g/dl (6.3-8.2); eGFR > 60.00
== END ==
LOC: SDSPAT 11:11
PROVIDERS: ATTENDING PHYSICIAN Internal Medicine Interventional Cardiology; FAMILY PHYSICIAN Physician Assistant Medical; OTHER PHYSICIAN Internal Medicine Cardiovascular Disease
DX: I25.10 Atherosclerotic heart disease of native coronary artery without angina pectoris (principal)
CPT/HCPCS: 36415; 80053; 85025; 93005

== ENCOUNTER 2025-08-16 07:27 | Day surgery (SDC) | payer MEDICARE, SELFPAY ==
[2025-08-11 11:30] VITALS: BMI 29.1
[2025-08-16] VITALS (13 sets, daily range): BP systolic 114–130; BP diastolic 63–77
[2025-08-16] MEDS: PLAVIX 300 MG PO (08:17)
[2025-08-16] MEDS: LOW STRENGTH ASPIRIN 81 MG PO (08:19)
[2025-08-16 08:21] LABS: Glucose - Point of Care 208 mg/dl (70-99)
[2025-08-16] MEDS: NSS 238 ML IV (08:21)
[2025-08-16 09:33] LABS: ACT-LR - POC 261 Seconds (116-155)
[2025-08-16 09:44] LABS: ACT-LR - POC 327 Seconds (116-155)
[2025-08-16 10:04] LABS: ACT-LR - POC 306 Seconds (116-155)
[2025-08-16 10:19] LABS: ACT-LR - POC 297 Seconds (116-155)
[2025-08-16 10:47] LABS: Glucose - Point of Care 106 mg/dl (70-99)
--- NOTE | 2025-08-16 12:26 | ITS.CL.CATH ---
Triage Nurse - Catheterization
Cardiac Catheterization
Procedure Report:
LEFT HEART CATHETERIZATION
Date of Procedure: August 16, 2025
Referring: Kem Zavala MD
PROCEDURES:
1. Left heart catheterization, coronary angiogram.
2. Moderate sedation.
3. Successful percutaneous coronary artery intervention of mid and distal RCA using 2 separate 3.0 x 22 mm and 2.5 x 15 mm Medtronic Dangelo drug-eluting stents, postdilated using IVUS guidance with a 3.0 x 20 mm NC balloon and a 2.5 mm NC balloon at
high pressures with an excellent angiographic and IVUS based result.
4. Intravascular ultrasound (IVUS)
5. Functional physiologic testing with IFR of mid LAD
INDICATION: Staged RCA PCI
ACCESS: Right radial artery, 6Fr. sheath, under US guidance.
HEMODYNAMICS : (mmHg)
AO (s/d) : 136/76
LVEDP : 24
No significant gradient across the aortic valve to suggest aortic stenosis.
CORONARY FINDINGS
DOMINANCE: Right
LEFT MAIN: The left main artery is a large-caliber vessel which gives rise to the left anterior descending artery and the left circumflex artery. There is minimal luminal irregularities.
LEFT ANTERIOR DESCENDING: The left anterior descending artery is a large-caliber vessel, which gives rise to 1 major diagonal branch and multiple other small caliber diagonal branches as it courses to the anterior interventricular groove and wraps
around the apex. Proximal LAD has 40% stenosis. Recently placed mid LAD stent in January 2025 has 20 to 30% stenosis in cranial views. Only in [place] caudal there is suggestion for possible 40 to 50% stenosis however there could be foreshortening in
this view. Given this IFR was performed which was negative at 0.97.
CIRCUMFLEX: The left circumflex artery is a medium caliber vessel which gives rise to 1 major obtuse marginal branch and 2 small to medium caliber left posterolateral branches OM1 has mild diffuse atherosclerotic plaque. Proximal to mid left
circumflex also has mild diffuse atherosclerotic plaque. Distal left circumflex going into the bifurcation of the left posterolateral branch has 60 to 70% stenosis.
RIGHT CORONARY ARTERY: The right coronary artery is a medium to large caliber vessel which gives rise to the right posterior descending artery and the right posterolateral system. There is a irregular 70 to 80% mid RCA stenosis. There is also a
90% distal RCA stenosis just proximal to the bifurcation of the RPDA and the RPL. Both of these stenoses were intervened upon as noted below
CORONARY INTERVENTION: We proceeded with PCI of the 2 obstructive stenosis in the RCA. Additional heparin was given to maintain a therapeutic ACT throughout the case. The right coronary artery was selectively engaged using a JR4 guide catheter. A
190 cm 0.014 run-through wire was carefully navigated across the lesions into the RPDA. The lesions were predilated using a 2.0 mm semicompliant balloon distally and 2.5 mm semicompliant balloon in the midportion with full expansion. The lesions
were subsequently stented using a 2.5 x 15 mm Medtronic [place] drug-eluting stent distally, postdilated using 2.5 mm NC balloon at 18 juanita. The mid lesion was stented using a 3.0 x 22 mm Medtronic Dangelo drug-eluting stent, postdilated using a 3.0 x 20
mm NC balloon at high pressures. On post PCI IVUS imaging the stents appeared well-expanded and well apposed without evidence of proximal or distal stent edge dissections. The patient tolerated the procedure well. She was reloaded with 300 mg of
Plavix this morning prior to the case. No acute complications.
HEMODYNAMIC ASSESSMENT OF THE MID LAD WITH A VOLCANO OMNI WIRE: The origin of the left coronary was cannulated with a 6 Fr EBU 3 point guide catheter. Intravenous heparin was administered and the ACT was followed during the procedure. Two hundred
micrograms of intracoronary nitroglycerin was given through the guide catheter. A [place] Omni wire was advanced to the guide catheter tip and normalized just outside the guide catheter. The Omni wire was then carefully manipulated across the
stenosis in the mid LAD with the iFR up the ischemic threshold measuring 0.9. The Omni wire was then pulled back to the guide catheter where the Pd/Pa measured 1.0 confirming no baseline drift in pressure readings.
SEDATION: 67minutes of procedural sedation was utilized. IV Midazolam and IV Fentanyl were administered. An independent anesthesiology medical doctor was present to assist with and help manage the patient's level of consciousness and physiologic status.
Closure Device: There were no immediate intra-procedural complications. The sheath was pulled in the laborer rags and a vascular-band applied to the right wrist for radial artery hemostasis using the patent hemostasis technique.
CONCLUSIONS
1. Successful percutaneous coronary artery intervention of mid and distal RCA using 2 separate 3.0 x 22 mm and 2.5 x 15 mm Medtronic [place] drug-eluting stents, postdilated using IVUS guidance with a 3.0 x 20 mm NC balloon and a 2.5 mm NC balloon at
high pressures with an excellent angiographic and IVUS based result.
2. Negative IFR of mid LAD at 0.97
RECOMMENDATIONS
1. Wean radial band per protocol. Monitor right hand perfusion and for bleeding from the radial site following removal of the vascular-band following trans-radial access.
2. Continue aggressive medical therapy and risk factor modification for secondary CAD prevention.
3. Continue ASA 81 mg. For 7 days. Eliquis can be resumed late tonight at 10 PM as long as no issues at the right radial access site.
4. Continue clopidogrel for at least 6-12 months of uninterrupted dual anti-platelet therapy given drug-eluting stent (EULOGIO) implantation to mitigate the risk of stent thrombosis. This is not to be stopped for any reason without the guidance of a
refractory grinder operator. Beyond this. Would consider de-escalating to daily baby aspirin instead of Plavix while patient remains on Eliquis.
5. Hydrate with normal saline to mitigate the risk of contrast-induced acute kidney injury.
6. Referral for outpatient cardiac rehab.
7. Follow-up with Dr. Kem Zavala
Chelle Arciniega MD, [facility], [facility]
Copy to: Kem Zavala MD
--- NOTE | 2025-08-16 14:16 | W.PN.UPDATE ---
Update Note
Progress Note Update
85 yo WF s/p PCI RCA x 2 (same day). She denies cp, sob, gracia diet, voiding, EKG SR, R rad site with TR band, scant ecchymosis. She will be on triple therapy ASA/Plavix and eliquis for 1 week then Stop ASA. Cardiac rehab c/s. She will f/u [facility]PER[facility] in 2
weeks. She is for d/c home after 330p.
== END 2025-08-16 15:30 | disposition home or self-care (01) ==
LOC: CATH 07:27
PROVIDERS: ATTENDING PHYSICIAN Internal Medicine Interventional Cardiology; FAMILY PHYSICIAN Physician Assistant Medical; OTHER PHYSICIAN Internal Medicine Cardiovascular Disease
DX: I25.10 Atherosclerotic heart disease of native coronary artery without angina pectoris (principal); I48.19 Other persistent atrial fibrillation; I25.5 Ischemic cardiomyopathy; I25.82 Chronic total occlusion of coronary artery; I11.0 Hypertensive heart disease with heart failure; I50.22 Chronic systolic (congestive) heart failure; Z87.891 Personal history of nicotine dependence; E11.9 Type 2 diabetes mellitus without complications; E78.5 Hyperlipidemia, unspecified; F41.9 Anxiety disorder, unspecified; I25.2 Old myocardial infarction; I49.1 Atrial premature depolarization; M19.90 Unspecified osteoarthritis, unspecified site; M85.80 Other specified disorders of bone density and structure, unspecified site; Z79.82 Long term (current) use of aspirin; Z86.79 Personal history of other diseases of the circulatory system; Z79.02 Long term (current) use of antithrombotics/antiplatelets; Z95.5 Presence of coronary angioplasty implant and graft; Z79.01 Long term (current) use of anticoagulants; Z79.84 Long term (current) use of oral hypoglycemic drugs; Z79.899 Other long term (current) drug therapy; Z88.0 Allergy status to penicillin; Z86.73 Personal history of transient ischemic attack (TIA), and cerebral infarction without residual deficits; Z88.1 Allergy status to other antibiotic agents; Z88.5 Allergy status to narcotic agent; Z88.6 Allergy status to analgesic agent; Z96.611 Presence of right artificial shoulder joint; Z96.653 Presence of artificial knee joint, bilateral; Z98.51 Tubal ligation status
CPT/HCPCS: 92978; 93799; 99152; 99153; 82962; 85347; 93005; 93458; C1725; C1753; C1769; C1874; C1894; C9600; Q9967